=== PATIENT | male | born 1950 | race Caucasian/White ===

== ENCOUNTER 2020-04-08 21:33 | Emergency (ER) | payer MEDICARE, BC, SELFPAY ==
[2020-04-08 21:42] VITALS: BP 104/60; PULSE 64; RESP 18; TEMP 36.8; O2SAT 96; BMI 29.5
--- NOTE | 2020-04-08 22:06 | XR_ITS ---
PROCEDURE: XR ELBOW RT MIN 3V CLINICAL INDICATION: right elbow pain COMPARISON: No exams were available for comparison FINDINGS: No fracture or dislocation. No lytic or blastic change. There is normal mineralization. There are small bony ossicles adjacent to the lateral epicondyle of the humerus. There is a small bony ossicle adjacent to the coronoid process of the left non fossa. There is moderate spurring of the tip of the likely non. The radial head is intact. Soft tissues are grossly normal. IMPRESSION: Mild degenerative and/or posttraumatic changes of the elbow as indicated Dictated by: Dr. Efrain Thomas MD 04/09/2020 08:[address] Efrain Thomas MD in [place] 04/09/2020 08:54
[2020-04-08 22:17] LABS: Basophils % 0.5 % (0.1-2.0); Eosinophils # 0.3 K/mm3 (0.0-0.4); Eosinophils % 3.4 % (0.1-12.0); Hematocrit 38.6 % (42.0-52.0); Lymphocytes # 1.7 K/mm3 (0.7-4.5); Mean Corpuscular HGB Conc 33.6 g/dL (31.8-35.4); Mean Corpuscular Volume 92.1 fl (80-94); Mean Platelet Volume 8.6 fl (7.4-10.4); Monocytes # 0.3 K/mm3 (0.1-1.0); Monocytes % 4.1 % (1.7-9.3); Neutrophils # 5.2 K/mm3 (1.8-7.8); Platelet Count 218 K/mm3 (142-424); Red Blood Count 4.19 M/mm3 (4.60-6.20); White Blood Count 7.5 K/mm3 (4.8-10.8)
--- NOTE | 2020-04-08 22:25 | CT_ITS ---
PROCEDURE: CT ELBOW RT W CON CLINICAL HISTORY: elbow pain COMPARISON: XR ELBOW RT MIN 3V from 04/08/2020 TECHNIQUE: Axial images obtained with sagittal and coronal reformats. All CT scans at the facility use one or more dose reduction, viz: automated exposure control, ma/kV adjustment per patient size (including targeted exams where dose is matched to indication, i.e. head), or iterative reconstruction technique. FINDINGS: There is mild degenerative narrowing of the radial capitellum and trochlear olecranon joint spaces. There is a prominent spur at the insertion of triceps tendon. There is some scattered punctate calcifications surrounding the joint capsule and in the area of the olecranon bursa. There are no soft tissue inflammatory changes. Small joint effusion is noted. There is no fracture or dislocation. IMPRESSION: Degenerative changes as above, small joint effusion Dictated by: Hiro Powell 04/09/2020 09:41 Electronically signed by Hiro Powell in [place] 04/09/2020 09:41
[2020-04-08 22:38] LABS: Alanine Aminotransferase 30 U/L (12-78); Albumin Level 4.6 g/dl (3.5-5.0); Albumin/Globulin Ratio 1.8 (1.1-1.8); Alkaline Phosphatase 87 U/L (38-126); Anion Gap 13.2 mEq/L (5-15); Aspartate Amino Transferase 55 U/L (17-59); Bilirubin,Total 0.4 mg/dl (0.2-1.3); Blood Urea Nitrogen 23 mg/dl (9-20); Calcium 9.4 mg/dl (8.4-10.2); Carbon Dioxide 26 mmol/L (22.0-30.0); Chloride 104 mmol/L (98-107); Creatinine Clearance Estimated 72 mL/min (50-200); Estimated Glomerular Filt Rate 55 ml/min (>60); GFR (African American) 66 ML/MIN (>60); Globulin 2.6 g/dL (1.3-3.2); Glucose 147 mg/dl (74-100); Potassium 4.2 mmoL/L (3.5-5.1); Sodium 139 mmol/L (136-145); Total Protein,Serum 7.2 g/dl (6.3-8.2); Uric Acid 6.5 mg/dl (3.5-8.5)
[2020-04-08 22:44] LABS: C-Reactive Protein 1.8 mg/L (0-4)
[2020-04-08 22:45] LABS: Lactic Acid 1.1 mmol/L (0.7-2.1)
--- NOTE | 2020-04-08 23:19 | HMH.EDGENADL ---
ED Disposition Clinical Impression: Tenosynovitis of elbow Disposition: Home, Self-Care Condition on Discharge: Good Instructions: DI for Elbow Pain Additional Instructions: use meds and call ortho in am Prescriptions: predniSONE [Prednisone 20mg Tab] 20 mg PO BID #10 tab Transmission Status: Sent to [facility] Referrals: Jonathan Zhang MD [Primary Care Provider] - - Critical Care Critical Care Time: No Attestation: On 04/08/20, the high probability of a clinically significant, sudden or life threatening deterioration of the following system(s) required my full and direct attention, intervention and personal management. The time I documented below is in addition to time spent performing reported procedures but includes the following listed in this critical care notation. Medical Decision Making - Medical Records Medical records reviewed: Yes: I reviewed the patient's medical records. - Og Inquiry Pt receiving controlled substance: No Vital Signs: 04/08/20 21:42 Temperature 98.2 F Temperature Source Oral Pulse Rate [Right Brachial] 64 Respiratory Rate 18 Blood Pressure [Right Arm] 104/60 L Blood Pressure Mean [Right Arm] 74 Blood Pressure Source [Right Arm] Automatic Cuff Blood Pressure Position [Right Arm] Sitting 02 Sat by Pulse Oximetry 96 Oxygen Delivery Method Room Air - Lab Data Lab results reviewed: Yes: I reviewed the patient's lab results. Lab Results 04/08/20 22:05: WBC 7.5, RBC 4.19 L, Hgb 13.0 L, Hct 38.6 L, MCV 92.1, MCH 31.0, MCHC 33.6, RDW 14.0, Plt Count 218, MPV 8.6, Neut % (Auto) 69.0, Lymph % (Auto) 23.0, [place] % (Auto) 4.1, Eos % (Auto) 3.4, Baso % (Auto) 0.5, Neut # (Auto) 5.2, Lymph # (Auto) 1.7, [place] # (Auto) 0.3, Eos # (Auto) 0.3, Baso # (Auto) 0.0, ESR 14 04/08/20 22:05: Sodium 139, Potassium 4.2, Chloride 104, Carbon Dioxide 26, Anion Gap 13.2, BUN 23 H, Creatinine 1.30 H, Estimated Creat Clear 72, Estimated GFR 55 L, Est GFR ( Amer) 66, Glucose 147 H, Uric Acid 6.5, Calcium 9.4, Total Bilirubin 0.4, AST 55, ALT 30, Alkaline Phosphatase 87, C-Reactive Protein 1.8, Total Protein 7.2, Albumin 4.6, Globulin 2.6, Albumin/Globulin Ratio 1.8 04/08/20 22:05: Lactate 1.1 Result diagrams: 04/08/20 22:05 04/08/20 22:05 Orders (Tests/Meds): ED MEDICATIONS Generic Name Dose Route Start Last Admin Trade Name Freq PRN Reason Stop Dose Admin Sodium Chloride 1,000 mls @ 999 mls/hr 04/08/20 22:15 04/08/20 22:15 Sod Chlor 0.9% 1000ml Bag IV 04/08/20 23:15 999 mls/hr .[id number] KRUNAL Administration Discontinued Medications Generic Name Dose Route Start Last Admin Trade Name Freq PRN Reason Stop Dose Admin Hydromorphone HCl 1 mg 04/08/20 23:39 04/08/20 23:44 Dilaudid 2mg/Ml Syringe IV 04/08/20 23:40 1 mg ONCE ONE Administration Ioversol 75 ml 04/08/20 23:24 04/08/20 23:24 Rad-Optiray 350 100ml Vial IV 04/08/20 23:25 75 ml ONCE ONE Administration Protocol Ketorolac Tromethamine 30 mg 04/08/20 22:08 04/08/20 22:15 Toradol 30mg/Ml Vial IV 04/08/20 22:09 30 mg ONCE ONE Administration Methylprednisolone Sodium Succinate 125 mg 04/08/20 22:08 04/08/20 22:15 Solu-Medrol 125mg/2ml Vial IV 04/08/20 22:09 125 mg ONCE ONE Administration Ondansetron HCl 4 mg 04/08/20 22:08 04/08/20 22:15 Zofran 4mg/2ml Vial IV 04/08/20 22:09 4 mg ONCE ONE Administration Sodium Chloride 10 ml 04/08/20 23:24 04/08/20 23:24 Rad-Saline Flush 10ml Syringe IV 04/08/20 23:25 10 ml ONCE ONE Administration ORDERS Category Date Time Status CT elbow RT w con Stat Cat Scan 04/08/20 22:25 Taken XR elbow RT min 3V Stat Exams 04/08/20 22:06 Taken Blood Culture Stat Micro 04/08/20 22:27 Received - Radiology Data #1 Image(s): Elbow Image Reviewed: Yes I reviewed the patient's radiology image Preliminary Findings: Abnormal, No Fracture Seen - CT Data CT Scan: Other Time Received: 00:13 E
[2020-04-08 23:28] LABS: Erythrocyte Sedimentation Rate 14 mm/hr (0-20)
--- NOTE | 2020-04-08 23:56 | PC.NURSE ---
call placed to [facility] for disk
[2020-04-09 00:31] VITALS: BP 151/75; PULSE 73; RESP 13; TEMP 36.8; O2SAT 98
== END 2020-04-09 00:32 | disposition home or self-care (01) ==
PROVIDERS: Emergency Provider Emergency Medicine; PCP Family Medicine
DX: M65.821 Other synovitis and tenosynovitis, right upper arm (principal); I10 Essential (primary) hypertension; E78.5 Hyperlipidemia, unspecified
CPT/HCPCS: 36415; 73080; 73201; 80053; 83605; 84550; 85025; 85651; 86140; 87040; 96365; 96375; 99283; J2405; Q9967

== ENCOUNTER → 2020-10-08 16:14 | Outpatient (CLI) | payer MEDICARE, BC, SELFPAY | PROVIDERS: PCP Family Medicine; Visit Provider Nurse Practitioner Family | DX: Z20.828 Contact with and (suspected) exposure to other viral communicable diseases (principal); U07.1 COVID-19 | CPT/HCPCS: U0003; U0004 ==

== ENCOUNTER 2020-10-10 09:04 | Emergency (ER) | payer MEDICARE, BC, SELFPAY ==
[2020-10-10 09:21] VITALS: BP 126/91; PULSE 68; RESP 16; TEMP 37.5; O2SAT 96; BMI 29.5
--- NOTE | 2020-10-10 09:24 | XR_ITS ---
PROCEDURE: XR CHEST PORTABLE CLINICAL HISTORY: chest tightness, possible COVID-19 COMPARISON: CR CXR CHEST(2 VIEWS-NOT PORTABLE) from 12/05/2013 CR CXR1 CHEST-PORTABLE from 04/22/2014 CR CXR CHEST(2 VIEWS-NOT PORTABLE) from 01/02/2015 FINDINGS: The cardiomediastinal silhouette and pulmonary vascularity are within normal limits. The lungs are clear without infiltrates, suspicious nodules, or pleural effusions. No acute bony abnormalities. IMPRESSION: No acute findings. Dictated by: Serafin Gross MD 10/10/2020 10:13 Serafin Gross MD in [place] 10/10/2020 10:13
--- NOTE | 2020-10-10 09:27 | HMH.EDGENADL ---
ED Disposition Clinical Impression: Suspected COVID-19 virus infection Disposition: Home, Self-Care Condition on Discharge: Good Instructions: DI for COVID-19 (Suspected or Confirmed ), COVID-19 Antibody Test, COVID-19 Viral Test, COVID-19: Testing and Tracing Additional Instructions: Continue [id number] medications for cough, sore throat and fever if needed. Prednisone as prescribed. Your COVID-19 nasal swab result is still pending, but it is suspected that you have COVID-19 infection. You will be contacted with your nasal swab result which should be back later today. If positive you will be contacted regarding scheduling for antibody infusion if you choose to have that treatment. Return to the emergency department if shortness of breath, severe weakness, or persistent vomiting so that you are unable to tolerate oral liquids. Prescriptions: predniSONE [Prednisone 20mg Tab] 20 mg PO BID #6 tab Transmission Status: Received by [facility] Referrals: Jonathan Zhang MD [Primary Care Provider] - - Critical Care Critical Care Time: No Attestation: On 10/10/20, the high probability of a clinically significant, sudden or life threatening deterioration of the following system(s) required my full and direct attention, intervention and personal management. The time I documented below is in addition to time spent performing reported procedures but includes the following listed in this critical care notation. Medical Decision Making - Og Inquiry Pt receiving controlled substance: No Vital Signs: 10/10/20 09:21 10/10/20 09:36 10/10/20 10:06 Temperature 99.5 F Temperature Source Oral Pulse Rate Pulse Rate [Right Brachial] 68 70 65 Respiratory Rate 16 16 Blood Pressure Blood Pressure [Right Arm] 126/91 H 135/89 134/77 Blood Pressure Mean [Right Arm] 102 104 96 Blood Pressure Source [Right Arm] Automatic Cuff Blood Pressure Position [Right Arm] Sitting 02 Sat by Pulse Oximetry 96 94 L 94 L Oxygen Delivery Method Room Air Room Air 10/10/20 10:30 10/10/20 11:33 10/10/20 11:59 Temperature 98.6 F 98.8 F Temperature Source Oral Oral Pulse Rate 85 Pulse Rate [Right Brachial] 59 L 59 L Respiratory Rate 15 18 Blood Pressure 137/85 Blood Pressure [Right Arm] 141/90 H 153/93 H Blood Pressure Mean [Right Arm] 107 113 Blood Pressure Source [Right Arm] Automatic Cuff Blood Pressure Position [Right Arm] Sitting 02 Sat by Pulse Oximetry 93 L 95 Oxygen Delivery Method Room Air Room Air Room Air - Lab Data Lab Results 10/10/20 09:35: WBC 4.2 L, RBC 4.73, Hgb 14.2, Hct 44.5, MCV 94.1 H, MCH 30.1, MCHC 32.0, RDW 14.3, Plt Count 172, MPV 8.9, Neut % (Auto) 67.5, Lymph % (Auto) 23.2, [place] % (Auto) 6.5, Eos % (Auto) 1.8, Baso % (Auto) 1.0, Neut # (Auto) 2.9, Lymph # (Auto) 1.0, [place] # (Auto) 0.3, Eos # (Auto) 0.1, Baso # (Auto) 0.0 10/10/20 09:35: Sodium 136, Potassium 4.9, Chloride 99, Carbon Dioxide 32 H, Anion Gap 9.9, BUN 17, Creatinine 1.20, Estimated Creat Clear 78, Estimated GFR 60, Est GFR ( Amer) 72, Glucose 104 H, Calcium 9.7, Total Bilirubin 0.4, AST 67 H, ALT 39, Alkaline Phosphatase 106, Total Protein 7.6, Albumin 4.5, Globulin 3.1, Albumin/Globulin Ratio 1.5 10/10/20 09:35: Lactate 0.8 10/10/20 09:35: SARS-CoV-2 IgG Ab (Rapid) Negative, SARS-CoV-2 IgM Ab (Rapid) Negative Result diagrams: 10/10/20 09:35 10/10/20 09:35 Orders (Tests/Meds): ED MEDICATIONS Discontinued Medications Generic Name Dose Route Start Last Admin Trade Name Freq PRN Reason Stop Dose Admin Methylprednisolone Sodium Succinate 125 mg 10/10/20 09:41 10/10/20 09:41 Methylprednisolone Sod Succ 125mg Vial IV 10/10/20 09:42 125 mg ONCE ONE Administration ORDERS Category Date Time Status Blood Culture Stat Micro 10/10/20 09:35 Received - Radiology Data #1 Image(s): Chest Image Reviewed: Yes I reviewed the patient's radiology image, Yes I
[2020-10-10 09:36] VITALS: BP 135/89; PULSE 70; RESP 16; O2SAT 94
[2020-10-10 09:53] LABS: Eosinophils # 0.1 K/mm3 (0.0-0.4); Eosinophils % 1.8 % (0.1-12.0); Hematocrit 44.5 % (42.0-52.0); Hemoglobin 14.2 g/dL (14.1-18.0); Lymphocytes % 23.2 % (10-50); Mean Corpuscular Hemoglobin 30.1 pg (27.0-31.2); Mean Corpuscular Volume 94.1 fl (80-94); Mean Platelet Volume 8.9 fl (7.4-10.4); Monocytes # 0.3 K/mm3 (0.1-1.0); Monocytes % 6.5 % (1.7-9.3); Neutrophils # 2.9 K/mm3 (1.8-7.8); Neutrophils % 67.5 % (37.0-80.0); Platelet Count 172 K/mm3 (142-424); Red Blood Count 4.73 M/mm3 (4.60-6.20); Red Cell Distribution Width 14.3 % (11.5-17.5); White Blood Count 4.2 K/mm3 (4.8-10.8)
[2020-10-10 10:02] LABS: Chloride 99 mmol/L (98-107); Sodium 136 mmol/L (136-145)
[2020-10-10 10:03] LABS: Potassium 4.9 mmoL/L (3.5-5.1)
[2020-10-10 10:05] LABS: Alanine Aminotransferase 39 U/L (12-78); Albumin Level 4.5 g/dl (3.5-5.0); Albumin/Globulin Ratio 1.5 (1.1-1.8); Alkaline Phosphatase 106 U/L (38-126); Anion Gap 9.9 mEq/L (5-15); Aspartate Amino Transferase 67 U/L (17-59); Bilirubin,Total 0.4 mg/dl (0.2-1.3); Blood Urea Nitrogen 17 mg/dl (9-20); Carbon Dioxide 32 mmol/L (22.0-30.0); Creatinine Clearance Estimated 78 mL/min (50-200); Estimated Glomerular Filt Rate 60 ml/min (>60); GFR (African American) 72 ML/MIN (>60); Globulin 3.1 g/dL (1.3-3.2); Total Protein,Serum 7.6 g/dl (6.3-8.2)
[2020-10-10 10:06] VITALS: BP 134/77; PULSE 65; O2SAT 94
[2020-10-10 10:06] LABS: Calcium 9.7 mg/dl (8.4-10.2); Glucose 104 mg/dl (74-100); Lactic Acid 0.8 mmol/L (0.7-2.1)
[2020-10-10 10:29] LABS: Coronavirus 19 IgG Antibody Negative (Negative); Coronavirus 19 IgM Antibody Negative (Negative)
[2020-10-10 10:30] VITALS: BP 141/90; PULSE 59; RESP 15; TEMP 37; O2SAT 93
[2020-10-10 11:33] VITALS: BP 153/93; PULSE 59; O2SAT 95
[2020-10-10 11:59] VITALS: BP 137/85; PULSE 85; RESP 18; TEMP 37.1; O2SAT 98
--- NOTE | 2020-10-12 11:21 | PC.NURSE ---
pt notified of positive covid swab result
== END 2020-10-10 12:00 | disposition home or self-care (01) ==
PROVIDERS: Emergency Provider Emergency Medicine; PCP Family Medicine
DX: Z20.828 Contact with and (suspected) exposure to other viral communicable diseases (principal); R07.89 Other chest pain; I10 Essential (primary) hypertension; E78.5 Hyperlipidemia, unspecified; Z01.84 Encounter for antibody response examination
CPT/HCPCS: 71045; 80053; 83605; 85025; 86328; 87040; 96374; 99284

== ENCOUNTER 2020-10-15 08:00 | Outpatient (CLI) | payer MEDICARE, BC, SELFPAY ==
[2020-10-15] VITALS (10 sets, daily range): BP systolic 103–125; BP diastolic 70–88; PULSE 57–68; RESP 17–21; TEMP 36.6–36.7; O2SAT 92–94
--- NOTE | 2020-10-15 09:45 | PC.NURSE ---
Infusion complete. Patient show no signs or symptoms of distress or reaction at this time.
== END 2020-10-15 10:44 | disposition home or self-care (01) ==
PROVIDERS: PCP Family Medicine; Visit Provider Family Medicine
DX: U07.1 COVID-19 (principal)
CPT/HCPCS: 96365

== ENCOUNTER → 2021-10-22 09:57 | Outpatient (CLI) | payer MEDICARE, BC, SELFPAY ==
--- NOTE | 2021-10-22 | CA_ITS ---
APPROVED REPORT EXAM: Comprehensive 2D, Doppler, and color-flow Echocardiogram Coding Manager: ZAKI Billings, RVS Ht: 5 ft 11 in Wt: 223lbs BSA: 2.21 BP: 130/80 mmHg Indications: HTN, SOA, Edema, Hx-COVID 09/2020 2D Dimensions LVDs 3.31 cm LA Volume 49.50 mL Aortic Root 3.18 cm LA Volume Index 22.40 mL/m2 (M/F) 16-34 Left Atrium 2.67 cm LVOT 2.24 cm (M/F) 1.5-2.5 M-Mode Dimensions RVDd 3.56 cm (0.9-2.6) LA Diam 4.27 cm (1.9-4.0) LVDd 4.28 cm (3.5-5.7) Ao Diam 3.18 cm (2.0-3.7) LVDs 2.84 cm (3.5-5.7) IVSd 1.40 cm (0.6-1.1) PWd 1.19 cm (0.6-1.1) EF (Teich) 62.80% EPSs 0.30 cm FS 33.60% EDV (Teich) 82.20 mL TAPSE 2.10 (<1.7) ESV (Teich) 30.60 mL LV Diastology E Decel Time 330.00 (160-240 msec) E/A Ratio 0.96 MED E' 5.10 (< 7 cm/sec) MED A' 6.50 cm/s E'/MED E' Ratio 14.22 (>14) LAT E' 6.10 (<10 cm/sec) LAT A' 10.90 cm/s E/LAT E' Ratio 11.89 (>14) Pulm Vein s 20.00 cm/sec Pulm Vein d 19.00 cm/sec Ar-A Duration 130.00 msec Aortic Valve LVOT Max 63.00 (70-110 cm/s) LVOT VTI 15.45 cm AoV Peak [place]. 101.00 (50-130 cm/s) AO Peak GR. 4.10 mmHg AO Mean GR. 2.10 (<5 mmHg) AO VTI 21.20 (18-25 cm) MAGUE (VTI) 2.87 (2.5-4.5 cm2) Mitral Valve MV A Velocity 76.00 (40-130 cm/s) E/A Ratio 0.96 MV Decel. Time 330.00 (160-240 ms) MV Mean Gr. 1.20 (<2mmHg) Pulmonary Valve PV Peak Velocity 104.00 (50-150 cm/s) VA End VMAX 68.00 cm/s Tricuspid Valve TR P. Velocity 211.00 cm/s RAP Estimate 10.00 mmHg RVSP 27.90 mmHg Left Ventricle Left atrium is mildly enlarged, left ventricle is normal size, mild concentric left ventricular hypertrophy, visually estimated ejection fraction 55% with no regional wall motion abnormality, grade 1 diastolic dysfunction seen without tissue Doppler evidence of raise left atrial pressure. Right Ventricle Right atrium and right ventricle are mildly enlarged with normal contractility. Aortic Valve Aortic valve is minimally thickened and fibrosed, there is no aortic stenosis or aortic insufficiency. Mitral Valve Mitral valve is grossly normal, there is trace mitral regurgitation. Tricuspid Valve Tricuspid valve grossly normal, there is trace tricuspid regurgitation, tricuspid regurgitation jet velocity is inadequate for calculation of the right ventricular systolic pressure. Pulmonic Valve Pulmonic valve is poorly visualized. Great Vessels Aortic root is normal size. Inferior vena cava normal size with normal inspiratory collapse. Pericardium No significant pericardial effusion noted. Conclusion 1. Mild biatrial enlargement, normal left ventricular size, mild concentric left ventricular hypertrophy, visually estimated ejection fraction 55% with no regional wall motion abnormality, grade 1 diastolic dysfunction seen without tissue Doppler evidence of raise left atrial pressure. 2. Mildly enlarged right ventricle with normal contractility. 3. Trace mitral and tricuspid regurgitation. 4. No significant pericardial effusion noted. 5. Inferior vena cava is normal size with normal inspiratory collapse. Electronically signed by : Oli Gallardo MD 10/22/2021 12:19:35
== END ==
PROVIDERS: PCP Family Medicine; Visit Provider Family Medicine
DX: R06.02 Shortness of breath (principal); R60.0 Localized edema; I25.10 Atherosclerotic heart disease of native coronary artery without angina pectoris
CPT/HCPCS: 93306

== ENCOUNTER 2021-11-09 12:41 | Emergency (ER) | payer MEDICARE, BC, SELFPAY ==
[2021-11-09 14:17] VITALS: BP 142/93; PULSE 65; RESP 20; TEMP 36.6; O2SAT 96; BMI 31.5
--- NOTE | 2021-11-09 14:22 | XR_ITS ---
PROCEDURE INFORMATION: Exam: XR Chest Exam date and time: 11/09/2021 2:22 PM Age: 71 years old Clinical indication: Patient HX: Cough, congestion. TECHNIQUE: Imaging protocol: XR of the chest. Views: 2 views. COMPARISON: CR XR CHEST PORTABLE 10/10/2020 9:52 AM FINDINGS: Lungs: Atelectasis and/or early infiltrative changes noted within both lung bases. Pleural spaces: There is no evidence of pneumothorax. Heart/Mediastinum: Unremarkable. No cardiomegaly. Bones/joints: The thoracic spine demonstrates mild degenerative changes at multiple levels. IMPRESSION: Atelectasis and/or early infiltrative changes noted within both lung bases.
--- NOTE | 2021-11-09 14:56 | HMH.EDUTC ---
[facility] Disposition Clinical Impression: Lung infiltrate Disposition: Home, Self-Care Condition on Discharge: Good Instructions: Pneumonia-Adult, Azithromycin, Cefdinir Additional Instructions: ? Start azithromycin today. Be sure to complete entire prescription even if feeling better Start Cefdinir tomorrow 11/10/21 ? Monitor temp. Tylenol every 4 hours as needed and / or ibuprofen every 6 hours as needed ( As long as your primary care physician has told you that it ok to take both. For fever/aches/pains ER if no less than 101 despite Tylenol or Motrin ? Humidifier/vaporizer or hot steamy shower *Tessalon Perles will not cause drowsiness but use at bedtime to help stop cough so that you may get some rest. *Start steroid today. Helps with inflammation therefore, cough and wheezing. Follow directions on the package. Reviewed side effects. Patient reports taking them before. Follow up IMMEDIATELY for new or worsening of symptoms OR no noticeable improvement over the next 48-72 hours. 911 immediately for any life threatening symptoms such as chest pain or difficulty breathing Prescriptions: Cefdinir [Omnicef 300mg Capsule] 300 mg PO BID #20 cap Transmission Status: Received by [facility] predniSONE [Prednisone 20mg Tab] 20 mg PO BID 5 Days #10 tab Transmission Status: Received by [facility] Azithromycin [Z-Julio C 250mg Tab] 250 mg PO DIRECTED #6 tab Transmission Status: Received by [facility] Referrals: Jonathan Zhang MD [Primary Care Provider] - As needed Time of Disposition: 15:40 Medical Decision Making - Og Inquiry Pt receiving controlled substance: No Og was queried for this patient: No Vital Signs: 11/09/21 14:17 11/09/21 15:35 Temperature 97.9 F 97.9 F Temperature Source Oral Pulse Rate 65 Pulse Rate [Left Radial] 65 Respiratory Rate 20 20 Blood Pressure 142/93 H Blood Pressure [Right Arm] 142/93 H Blood Pressure Mean [Right Arm] 109 Blood Pressure Source [Right Arm] Automatic Cuff Blood Pressure Position [Right Arm] Sitting 02 Sat by Pulse Oximetry 96 Oxygen Delivery Method Room Air - Lab Data Lab Results 11/09/21 15:03: Group A Strep Rapid Negative Orders (Tests/Meds): ED MEDICATIONS Discontinued Medications Generic Name Dose Route Start Last Admin Trade Name Freq PRN Reason Stop Dose Admin Ceftriaxone Sodium 1 gm 11/09/21 15:18 11/09/21 15:35 Ceftriaxone 1gm Vial IM 11/09/21 15:19 1 gm ONCE ONE Administration Lidocaine HCl 0 ml 11/09/21 15:18 11/09/21 15:35 Lidocaine 1% 5ml Pf Vial IM 11/09/21 15:19 2 ml ONCE ONE Administration ORDERS Category Date Time Status Covid-19 Nasal PCR ([facility] [place]) Routine Lab 11/09/21 14:22 Ordered Strep Screen Confirmation Stat Micro 11/09/21 15:03 Received - Radiology Data #1 Image(s): Chest Image Reviewed: Yes I have reviewed radiologist's interpretation IMPRESSION: Atelectasis and/or early infiltrative changes noted within both lung bases. Medical Decision Narrative: Patient states that he has taken azithromycin and Predinisone in the past without complications or reactions [facility] HPI - General Stated complaint: possible cold Time Seen by Provider: 11/09/21 14:56 Mode of Arrival: Ambulatory Source of Information: Patient Limitations: No Limitations Description of Symptoms (Recalled from Triage Doc. by RN): c/o hoarness, cough, congestion and ear pain HEENT Symptoms (Recalled from RN notes): Yes Resp Symptoms (Recalled from RN notes): Yes (cough) Skin Symptoms (Recalled from RN notes): No MS Symptoms (Recalled from RN notes): No Functional Status (Recalled from RN notes): na - History of Present Illness Provider Complaint: Patient state that he has been having cough, chest and sinus congestion, body aches and this morning he he was very hoarse States that he is pron to get pneumonia and they wanted him tested for COVID and strep throat - Related D
[2021-11-09 15:31] LABS: Strep Scrn Group A (Rapid) Negative (Negative)
[2021-11-09 15:35] VITALS: BP 142/93; PULSE 65; RESP 20; TEMP 36.6
== END 2021-11-09 15:54 | disposition home or self-care (01) ==
PROVIDERS: Emergency Provider Nurse Practitioner; PCP Family Medicine
DX: R91.8 Other nonspecific abnormal finding of lung field (principal); Z20.822 Contact with and (suspected) exposure to COVID-19
CPT/HCPCS: G0463; 71046; 87430; 96372; 99203; C9803; J0696; U0003; U0005

== ENCOUNTER → 2022-01-03 08:05 | Outpatient (CLI) | payer MEDICARE, BC, SELFPAY | PROVIDERS: PCP Family Medicine; Visit Provider Surgery | DX: Z01.812 Encounter for preprocedural laboratory examination (principal); Z11.52 Encounter for screening for COVID-19; Z12.11 Encounter for screening for malignant neoplasm of colon | CPT/HCPCS: C9803; U0003; U0005 ==

== ENCOUNTER 2022-01-06 09:21 | Day surgery (SDC) | payer MEDICARE, BC, SELFPAY ==
[2022-01-02 14:08] VITALS: BMI 31.5
[2022-01-06] VITALS (7 sets, daily range): BP systolic 94–157; BP diastolic 60–86; PULSE 50–67; RESP 16–18; TEMP 36.2–36.4; O2SAT 95–97
--- NOTE | 2022-01-06 09:52 | P.PN_ITS ---
[facility] Anesthesia Checklist - Patient Identification Patient Identification: Arm Band - Structural Data Admitted From: Home Planned Operative Procedure/s: Colonoscopy Consent for Planned Operative Procedure(s) Verified: Yes - NPO Status Verified Time NPO: 00:00 - Airway Assessment C-Spine Mobility Assessed: Yes TMJ Mobility Assessed: Yes Dentition: Partials - Neurological Assessment Level of Consciousness: Awake Hx Seizures: No Numbness or tingling in extremities: No - Anesthesia Plan Anesthesia Risk discussed: Yes Anesthesia Plan: Verified ASA Class: II Anesthesia Type: MAC [facility] History I have reviewed the patient's past medical history: Yes Medical History: Reports:: Hypertension, Myocardial Infarction Denies:: Cancer, Diabetes Mellitus Type 1, Diabetes Mellitus Type 2, MRSA *Have you ever received a pneumonia vaccine?: Yes *Have you received a flu vaccine this season?: Yes Anesthesia experience/problems:: None Laterality Cases: Bilateral: Tonsillectomy Amputation: No - *Social History Smoking Status: Never smoker Alcohol Intake: never Substance Use Type: denies use *Occupational Status:: other *Travel in the last 8 weeks: None Family Hx:: Unable to obtain
--- NOTE | 2022-01-06 11:03 | P.PCN_ITS ---
- Procedure: Date: 01/06/22 Patient Date of :: 1950 Procedure Performed:: Colonoscopy with polypectomy by means other than snare Indications:: History of colon polyps Performing Provider:: Marcos Inman MD Referring Provider:: Dr. Zhang Sedation:: Monitored anesthesia care Procedure:: After informed consent was obtained the patient was taken to the endoscopy suite. Sedation ensued after the patient was transferred to the left lateral decubitus position. Pulse, blood pressure, and oxygen saturation were monitored throughout the procedure. Digital rectal exam revealed no significant abnormality. The colonoscope was placed in position. The entire colon was evaluated. The colonoscope was carefully removed and the patient was transfer red to recovery in stable condition. Please see findings and specimens below for detail. Findings:: Bowel preparation moderate Moderate spasticity and tortuosity Sigmoid diverticulosis Right colon polyp Specimens:: Right colon polyp (cold biopsy forceps) Recommendations:: Timing of repeat colonoscopy is pending pathology but will likely be between 21- 2 years with extended bowel preparation secondary to limitations in visualization. If repeat colonoscopy reveals no significant abnormality timing of future colonoscopies will likely be extended. Complications:: No immediate Estimated blood obtained (mL): 1
== END 2022-01-06 11:54 | disposition home or self-care (01) ==
LOC: OUTP 09:23
PROVIDERS: PCP Family Medicine; Visit Provider Surgery
PROC: 0DJD8ZZ Inspection of Lower Intestinal Tract, Via Natural or Artificial Opening Endoscopic (ICD-10-PCS; principal; 2022-01-06 10:30)
DX: Z12.11 Encounter for screening for malignant neoplasm of colon (principal); K63.5 Polyp of colon; K56.2 Volvulus; K58.9 Irritable bowel syndrome, unspecified; K57.30 Diverticulosis of large intestine without perforation or abscess without bleeding; Z86.010 Personal history of colon polyps; I10 Essential (primary) hypertension; I25.2 Old myocardial infarction; E66.9 Obesity, unspecified; Z68.31 Body mass index [BMI] 31.0-31.9, adult
CPT/HCPCS: 45380; 88305

== ENCOUNTER → 2022-07-20 08:11 | Outpatient (CLI) | payer MEDICARE, BC, SELFPAY ==
[2022-07-20 10:24] LABS: Chloride 101 mmol/L (98-107); Sodium 139 mmol/L (136-145)
[2022-07-20 10:25] LABS: Potassium 4.7 mmoL/L (3.5-5.1)
[2022-07-20 10:28] LABS: Anion Gap 15.7 mEq/L (5-15); Blood Urea Nitrogen 20 mg/dl (9-20); Calcium 9.1 mg/dl (8.4-10.2); Carbon Dioxide 27 mmol/L (22.0-30.0); Estimated Glomerular Filt Rate 66 ml/min (>60); GFR (African American) 80 ML/MIN (>60); Glucose 107 mg/dl (74-100)
== END ==
PROVIDERS: PCP Family Medicine; Visit Provider Ophthalmology
DX: H02.423 Myogenic ptosis of bilateral eyelids (principal)
CPT/HCPCS: 36415; 80048

== ENCOUNTER → 2022-11-13 06:55 | Outpatient (CLI) | payer MEDICARE, BC, SELFPAY ==
[2022-11-13 07:25] LABS: Basophils % 0.9 % (0.1-2.0); Eosinophils # 0.2 K/mm3 (0.0-0.4); Eosinophils % 4.8 % (0.1-12.0); Hematocrit 37.6 % (42.0-52.0); Hemoglobin 12.1 g/dL (14.1-18.0); Lymphocytes # 1.2 K/mm3 (0.7-4.5); Lymphocytes % 33.2 % (10-50); Mean Corpuscular HGB Conc 32.3 g/dL (31.8-35.4); Mean Corpuscular Hemoglobin 29.2 pg (27.0-31.2); Mean Corpuscular Volume 90.5 fl (80-94); Mean Platelet Volume 8.5 fl (7.4-10.4); Monocytes # 0.2 K/mm3 (0.1-1.0); Monocytes % 4.6 % (1.7-9.3); Neutrophils % 56.5 % (37.0-80.0); Platelet Count 221 K/mm3 (142-424); Red Blood Count 4.15 M/mm3 (4.60-6.20); Red Cell Distribution Width 14.6 % (11.5-17.5); Reticulocyte % (Auto) 0.6 % (0.9-3.2); White Blood Count 3.6 K/mm3 (4.8-10.8)
[2022-11-13 08:19] LABS: Iron 87 ug/dL (49-181)
[2022-11-13 08:53] LABS: Ferritin 92.6 ng/ml (17.9-464)
[2022-11-13 09:29] LABS: Vitamin B12 449 pg/mL (239-931)
[2022-11-13 09:33] LABS: Folate 8.31 ng/mL
== END ==
PROVIDERS: PCP Family Medicine; Visit Provider Family Medicine
DX: D64.9 Anemia, unspecified (principal)
CPT/HCPCS: 36415; 82607; 82728; 82746; 83540; 85025; 85044

== ENCOUNTER 2023-09-14 09:25 | Day surgery (SDC) | payer MEDICARE, BC, SELFPAY ==
[2023-09-08 14:27] VITALS: BMI 30.7
[2023-09-14 09:37] VITALS: BP 186/92; PULSE 69; RESP 18; TEMP 36.7; O2SAT 97
--- NOTE | 2023-09-14 09:38 | HMH.SCOPE ---
Procedure: Date: 09/14/23 Patient Date of :: 1950 Procedure Performed:: Colonoscopy with polypectomy by means other than snare Indications:: History of colon polyps Colonoscopy December 2021 was somewhat complicated by moderate preparation, significant spasticity, and fairly profound tortuosity. Sigmoid diverticulosis noted. An adenoma of the right colon was excised. Performing Provider:: Marcos Inman MD Referring Provider:: . Sedation:: Monitored anesthesia care Procedure:: After informed consent was obtained the patient was taken to the endoscopy suite. Sedation ensued after the patient was transferred to the left lateral decubitus position. Pulse, blood pressure, and oxygen saturation were monitored throughout the procedure. Digital rectal exam revealed no significant abnormality. The colonoscope was placed in position. The entire colon was evaluated. The colonoscope was carefully removed and the patient was transferred to recovery in stable condition. Please see findings and specimens below for detail. Findings:: Bowel preparation moderate to poor Fairly significant spasticity/lack of relaxation Unchanged sigmoid diverticulosis Adjacent right colon polyps Specimens:: Adjacent right colon polyps (cold biopsy forceps) Recommendations:: Timing of repeat colonoscopy is pending pathology but likely be between 2-3 years with extended bowel preparation. Complications:: No immediate Estimated blood obtained (mL): 1 Colonoscopy Component Colonoscopy Component Was a colonoscopy performed during today's procedure?: Yes Recommended follow up colonoscopy of at least 10 years?: No If no, follow up colonoscopy recommended in ___ years?: (See above) Reason for not recommending >/= 10 yr follow-up interval?: (See above)
--- NOTE | 2023-09-14 09:53 | EXP.ANES.CKL ---
[facility] Disclaimer: The information contained in this section may have been updated after the patient was seen, as this information can be updated by other users. Medical History Hyperlipidemia Hypertension Surgical History History of right heart catheterization (RHC) Family History Other Family history of myocardial infarction Social History Smoking Status: Never smoker alcohol intake: never substance use type: denies use current occupational status: retired Travel in the last 8 weeks: None caffeine: Yes [facility] Anesthesia Checklist Patient Identification Patient Identification: Arm Band Structural Data Admitted From: Home Planned Operative Procedure/s: colonoscopy Consent for Planned Operative Procedure(s) Verified: Yes Verified Documents: Surgical Consent and History and Physical NPO Status Verified Time NPO: 00:00 Additional verifications Anesthesia Reactions: No Airway Assessment Mallampati Score:: Class II C-Spine Mobility Assessed: Yes TMJ Mobility Assessed: Yes Neurological Assessment Level of Consciousness: Awake and Alert Anesthesia Plan Anesthesia Risk discussed: Yes Anesthesia Plan: Verified ASA Class: III Anesthesia Type: MAC
[2023-09-14 09:59] VITALS: O2SAT 94
[2023-09-14 10:25] VITALS: BP 86/40; PULSE 53; RESP 15; TEMP 36.2; O2SAT 92
[2023-09-14 10:35] VITALS: BP 95/48; PULSE 55; RESP 14; O2SAT 95
[2023-09-14 10:45] VITALS: BP 112/56; PULSE 60; RESP 17; O2SAT 94
[2023-09-14 10:55] VITALS: BP 109/54; PULSE 58; RESP 16; TEMP 36.6; O2SAT 94
== END 2023-09-14 11:00 | disposition home or self-care (01) ==
PROVIDERS: PCP Family Medicine; Visit Provider Surgery
PROC: 0DJD8ZZ Inspection of Lower Intestinal Tract, Via Natural or Artificial Opening Endoscopic (ICD-10-PCS; CPT 45380; principal; 2023-09-14 10:30)
DX: Z12.11 Encounter for screening for malignant neoplasm of colon (principal); Z86.010 Personal history of colon polyps; K57.30 Diverticulosis of large intestine without perforation or abscess without bleeding; D12.2 Benign neoplasm of ascending colon
CPT/HCPCS: 45380; 88305

== ENCOUNTER 2023-10-21 08:08 | Emergency (ER) | payer MEDICARE, BC, SELFPAY ==
[2023-10-21 08:08] VITALS: BP 124/81; PULSE 81; RESP 17; TEMP 36.5; O2SAT 96; BMI 31.2
[2023-10-21 08:15] VITALS: BP 124/81; PULSE 70; O2SAT 96
--- NOTE | 2023-10-21 08:15 | CT_ITS ---
FINAL REPORT CLINICAL HISTORY: abd pain rad to back, no BM, minimal flatus COMPARISON: None FINDINGS: CT OF THE ABDOMEN AND PELVIS WITH CONTRAST Axial CT images of the abdomen and pelvis were obtained after the administration of IV contrast. Coronal reformatted images were also obtained and reviewed. This study was performed with techniques to keep radiation doses as low as reasonably achievable (ALARA). Individualized dose reduction techniques using automated exposure control or adjustment of mA and/or kV according to the patient's size were employed. Abdomen: There is mild atelectasis in the lung bases.. The heart is normal in size. Moderate vascular calcifications are noted. The liver has an unremarkable appearance, without evidence of mass or biliary ductal dilatation. The spleen is unremarkable. No adrenal mass is present. The pancreas has an unremarkable appearance. The kidneys are normal, without evidence of mass or hydronephrosis. The aorta is normal in caliber. There is no free fluid or adenopathy. No mass or abnormal fluid collection is seen. Pelvis: The appendix normal. The urinary bladder is unremarkable. No inflammatory process is seen. There is no evidence of mass or adenopathy. There is a moderate to large amount of retained stool in the colon. Descending and sigmoid diverticulosis is noted. There is a small left inguinal hernia containing fat. IMPRESSION: Moderate to large amount of retained stool. Diverticulosis. Reviewed, Interpreted and Dictated by Pee Sage III, MD Transcribed by Verenice Lakhani Authenticated and . [facility]
--- NOTE | 2023-10-21 08:16 | HMH.EDGENADL ---
Discharge Plan Disposition Patient Disposition: Home, Self-Care Chief Complaint: Abdominal Pain Prescriptions Prescriptions: No Action atorvastatin 80 MG tablet 80 mg PO DAILY aspirin 81 MG tablet,delayed release (DR/EC) 81 mg PO DAILY lisinopril 10 tablet 10 mg PO DAILY Referrals Follow up/Referrals: Jonathan Zhang MD [Primary Care Provider] - See instructions Activity Restrictions/Add. Instructions Additional Instructions/Restrictions: At this time it was felt you are safe to be discharged home. If new or worsening symptoms please do not hesitate to return the emergency department. If symptoms persist please follow-up with your family doctor as you are able. Clinical Impressions Clinical Impression: Fecal impaction Instructions Patient Instructions: DI for Acute Abdominal Pain Discharge ED Provider: Nilo Graham General Adult HPI General Chief complaint: Abdominal Pain Stated complaint: Abdominal Pain, sweats Time Seen by Provider: 10/21/23 08:09 History of Present Illness HPI narrative: Patient is a 73-year-old male with past medical history of hyperlipidemia, recent COVID infection who presents emergency department for evaluation of abdominal pain. History is obtained by patient at bedside. Over the last 48 hours patient has been unable to have a bowel movement, minimal flatus, there is associated nonbloody vomiting. Due to intermittent generalized abdominal pain worse in the bilateral lower quadrants he presents here for continued evaluation. No dysuria. No chest pain. No abdominal surgical history. Related Data Home Medications Medication Instructions Recorded Confirmed aspirin 81 mg tablet,delayed 81 mg PO DAILY HEART HEALTH 01/21/19 10/21/23 release atorvastatin 80 mg tablet 80 mg PO DAILY Cholesterol 01/21/19 10/21/23 lisinopril 10 mg tablet 10 mg PO DAILY HTN 01/21/19 10/21/23 Allergies Allergy/AdvReac Type Severity Reaction Status Date / Time No Known Allergies Allergy Verified 09/29/23 09:04 [facility] Disclaimer: The information contained in this section may have been updated after the patient was seen, as this information can be updated by other users. Medical History Hyperlipidemia Hypertension Surgical History History of right heart catheterization (RHC) Family History Other Family history of myocardial infarction Social History Smoking Status: Never smoker alcohol intake: never substance use type: denies use current occupational status: retired Travel in the last 8 weeks: None caffeine: Yes ROS Obtained: Yes Systems reviewed as appropriate & no additional complaints except as documented Physical Exam General General appearance: alert and in no apparent distress Head Head exam: atraumatic and normocephalic Eye Eye exam: Present PERRL and EOMI ENT ENT exam: Present mucous membranes moist Neck Neck exam: Present normal inspection Chest Chest inspection: Present normal inspection and symmetric chest wall rise Respiratory Respiratory exam: Present normal lung sounds bilaterally; Absent respiratory distress Cardiovascular Cardiovascular exam: Present regular rate and normal rhythm Abdominal Exam Abdominal exam: Present distention and tenderness (Mild, diffuse) Extremities Exam Extremities exam: Present normal inspection Neurological Exam Neurological exam: Present alert Psychiatric Psychiatric exam: Present normal affect Skin Skin exam: Present warm and dry Medical Decision Making Og Inquiry Pt receiving controlled substance: No Vital Signs: 10/21/23 08:08 10/21/23 08:15 10/21/23 08:27 Temperature 97.7 F Temperature Source Oral Pulse Rate 70 74 Pulse Rate [Left Radial] 81 Respiratory Rate 17 Blood Pressure 124/81 106/62 L Blood Pressure [Right Arm] 124/81 Blood Pressure Mean 95 76 Blood Pressure Mean [Right Arm] 95 02 Sat by Pulse Oximetry 96 96 97 Oxygen Delivery Method Room Air Room Air Room Air 10/21/23 08:30 10/21/23 09:00 Temperature Temperature Source Pulse Rate 73 71 Pulse Rate [Left Radial] Respiratory Rate Blood Pressure 120/74 110/68 Blood Pressure [Right Arm] Blood Pressure Mean 89 82 Blood Pressure Mean [Right Arm] 02 Sat by Pulse Oximetry 97 96 Oxygen Delivery Method Room Air Room Air Lab Data Lab Results 10/21/23 08:12: Urine Color Yellow, Urine Appearance Clear, Urine pH 6.5, Ur Specific [place] 1.010, Urine Protein Negative, Urine Glucose (UA) Negative, Urine Ketones Negative, Urine Blood Negative, Urine Nitrate Negative, Urine Bilirubin Negative, Urine Urobilinogen 0.2, Ur Leukocyte Esterase Negative, Urine RBC None, Urine WBC None, Ur Squamous Epith Cells Occasional, Urine Bacteria Trace 10/21/23 08:24: WBC 4.2 L, RBC 4.28 L, Hgb 12.6 L, Hct 39.0 L, MCV 91.1, MCH 29.4, MCHC 32.3, RDW 14.9, Plt Count 248, MPV 8.5, Neut % (Auto) 61.1, Lymph % (Auto) 28.4, Charles % (Auto) 5.9, Eos % (Auto) 3.7, Baso % (Auto) 0.8, Neut # (Auto) 2.6, Lymph # (Auto) 1.2, Charles # (Auto) 0.3, Eos # (Auto) 0.2, Baso # (Auto) 0.0, Sodium 134 L, Potassium 4.5, Chloride 101, Carbon Dioxide 27, Anion Gap 10.5, BUN 23 H, Creatinine 1.30 H, Estimated Creat Clear 73, Estimated GFR 54 L, Est GFR ( Amer) 65, Glucose 113 H, Calcium 8.9, Total Bilirubin 0.4, AST 69 H, ALT 48, Alkaline Phosphatase 132 H, Total Protein 7.3, Albumin 4.6, Globulin 2.7, Albumin/Globulin Ratio 1.7, Lipase 399 H 10/21/23 08:29: SARS-CoV-2 (PCR) Not detected, Influenza A Untype (PCR) Not detected, Influenza Type B (PCR) Not detected 10/21/23 08:57: Lactate 1.1 10/21/23 08:24 10/21/23 08:24 Orders (Tests/Meds): ED MEDICATIONS Discontinued Medications Generic Name Dose Route Start Last Admin Trade Name Freq PRN Reason Stop Dose Admin Acetaminophen 1,000 mg 10/21/23 08:15 10/21/23 08:28 Acetaminophen 1,000mg/100ml Vial IV 10/21/23 08:16 1,000 mg ONCE ONE Administration Iopamidol 75 ml 10/21/23 09:12 10/21/23 09:13 Iopamidol-370 (76%);100ml Bottle IV 10/21/23 09:13 75 ml ONCE ONE Administration Ondansetron HCl 4 mg 10/21/23 08:15 10/21/23 08:28 Ondansetron 4mg/2ml Vial IV 10/21/23 08:16 4 mg ONCE ONE Administration Sodium Chloride 10 ml 10/21/23 09:12 10/21/23 09:12 Sodium Chloride 0.9% 10ml Syr (Rad Only) IV 10/21/23 09:13 10 ml ONCE ONE Administration ORDERS Category Date Time Status CT abdomen pelvis w con Stat Cat Scan 10/21/23 08:15 Completed CBC w/Auto Diff [Complete Blood Count Auto Diff] Stat Lab 10/21/23 08:24 Completed CMP [Comprehensive Metabolic Panel] Stat Lab 10/21/23 08:24 Completed Lactic Acid Stat Lab 10/21/23 08:57 Completed Lipase Stat Lab 10/21/23 08:24 Completed Rapid PCR Covid and Flu A/B Stat Lab 10/21/23 08:29 Completed UA [Urinalysis and Microscopic] Stat Lab 10/21/23 08:12 Completed Medical Decision Narrative: In summary patient is a 73-year-old male with past medical history described above presents emergency department for evaluation of abdominal pain and decreased stooling. Patient is hemodynamically stable nontoxic-appearing upon arrival, afebrile. Differential diagnosis includes bowel obstruction, constipation, stercoral colitis, pancreatitis, among others. Workup will be conducted with hematologic labs, viral swab, urinalysis, CT of the abdomen pelvis IV contrast. Initial interventions include IV Tylenol, IV Zofran. Workup reviewed by me, hematologic labs are remarkable for elevated lipase, however patient does not have significant epigastric pain. There is mildly elevated creatinine but does not meet VICKIE per rifle criteria. No critical electrolyte abnormalities. Urinalysis interpreted by me and not consistent with infection, viral swab negative. CT imaging shows moderate to large amount of retained stool and sigmoid diverticulosis. Upon my informal interpretation there is retained stool in the rectum. Given this patient undergo enema at bedside. Patient underwent enema at bedside and was unsuccessful. He subsequently went disimpaction with success and subsequent enema with success. Patient had significant resolution of symptoms and is appropriate for discharge at this time. Procedure: Procedure performed was rectal disimpaction. Procedure performed by Nilo Graham. Using viscous petroleum jelly rectum was digitally disimpacted with large hard stool expelled. Critical Care Critical Care Time Critical Care Time: No
--- NOTE | 2023-10-21 08:19 | PC.NURSE ---
Dr. Graham at BS for pt eval
[2023-10-21 08:20] LABS: Microscopic, Urine URINE MICROSCOPIC (MICROSCOPIC)
[2023-10-21 08:21] LABS: Appearance,Urine CLEAR (Clear); Bilirubin,Urine Negative (Negative); Blood, Urine Negative (Negative); Color,Urine YELLOW (Yellow); Glucose,Urine (UA) Negative (Negative); Ketones,Urine Negative (Negative); Leukocyte Esterase,Urine Negative (Negative); Nitrate,Urine Negative (Negative); PH,Urine 6.5 (5.0-8.5); Protein,Urine Negative (Negative); Urobilinogen,Urine 0.2 EU/dl (0.2)
[2023-10-21 08:27] VITALS: BP 106/62; PULSE 74; O2SAT 97
[2023-10-21] MEDS: ACETAMINOPHEN 1,000MG/100ML VIAL 1000 MG IV (08:28)
[2023-10-21] MEDS: ONDANSETRON 4MG/2ML VIAL 4 MG IV (08:28)
[2023-10-21 08:30] VITALS: BP 120/74; PULSE 73; O2SAT 97
[2023-10-21 08:32] LABS: Coronavirus 19, PCR Not Detected (NotDetected); Influenza A, PCR Not Detected (NotDetected); Influenza B, PCR Not Detected (NotDetected)
[2023-10-21 08:38] LABS: Bacteria,Urine Trace /lpf; Squamous Epithelial Cell,Urine Occasional #/hpf (0-5)
[2023-10-21 08:39] LABS: Basophils % 0.8 % (0.1-2.0); Eosinophils # 0.2 K/mm3 (0.0-0.4); Eosinophils % 3.7 % (0.1-12.0); Hemoglobin 12.6 g/dL (14.1-18.0); Lymphocytes # 1.2 K/mm3 (0.7-4.5); Lymphocytes % 28.4 % (10-50); Mean Corpuscular HGB Conc 32.3 g/dL (31.8-35.4); Mean Corpuscular Hemoglobin 29.4 pg (27.0-31.2); Mean Corpuscular Volume 91.1 fl (80-94); Mean Platelet Volume 8.5 fl (7.4-10.4); Monocytes # 0.3 K/mm3 (0.1-1.0); Monocytes % 5.9 % (1.7-9.3); Neutrophils # 2.6 K/mm3 (1.8-7.8); Neutrophils % 61.1 % (37.0-80.0); Platelet Count 248 K/mm3 (142-424); Red Blood Count 4.28 M/mm3 (4.60-6.20); Red Cell Distribution Width 14.9 % (11.5-17.5); White Blood Count 4.2 K/mm3 (4.8-10.8)
[2023-10-21 08:50] LABS: Alanine Aminotransferase 48 U/L (12-78); Albumin Level 4.6 g/dl (3.5-5.0); Albumin/Globulin Ratio 1.7 (1.1-1.8); Alkaline Phosphatase 132 U/L (38-126); Anion Gap 10.5 mEq/L (5-15); Aspartate Amino Transferase 69 U/L (17-59); Bilirubin,Total 0.4 mg/dl (0.2-1.3); Blood Urea Nitrogen 23 mg/dl (9-20); Calcium 8.9 mg/dl (8.4-10.2); Carbon Dioxide 27 mmol/L (22.0-30.0); Chloride 101 mmol/L (98-107); Creatinine Clearance Estimated 73 mL/min (50-200); Estimated Glomerular Filt Rate 54 ml/min (>60); GFR (African American) 65 ML/MIN (>60); Globulin 2.7 g/dL (1.3-3.2); Glucose 113 mg/dl (74-100); Lipase 399 U/L (23-300); Potassium 4.5 mmoL/L (3.5-5.1); Sodium 134 mmol/L (136-145); Total Protein,Serum 7.3 g/dl (6.3-8.2)
--- NOTE | 2023-10-21 08:57 | PC.NURSE ---
Pt gone to CT via wheelchair
[2023-10-21 09:00] VITALS: BP 110/68; PULSE 71; O2SAT 96
[2023-10-21] MEDS: SODIUM CHLORIDE 0.9% 10ML SYR (RAD ONLY) 10 ML IV (09:12)
[2023-10-21] MEDS: IOPAMIDOL-370 (76%);100ML BOTTLE 75 ML IV (09:13)
[2023-10-21 09:15] LABS: Lactic Acid 1.1 mmol/L (0.7-2.1)
--- NOTE | 2023-10-21 09:15 | PC.NURSE ---
Pt returned from RAD
[2023-10-21 11:55] VITALS: BP 115/81; PULSE 63; RESP 18; TEMP 36.6; O2SAT 95
--- NOTE | 2023-10-21 11:55 | PC.NURSE ---
Patient reports bowel movement after enema.
== END 2023-10-21 11:57 | disposition home or self-care (01) ==
PROVIDERS: Emergency Provider Emergency Medicine; PCP Family Medicine
DX: K56.41 Fecal impaction (principal); R11.10 Vomiting, unspecified; R10.31 Right lower quadrant pain; R10.32 Left lower quadrant pain; I10 Essential (primary) hypertension; E78.5 Hyperlipidemia, unspecified
CPT/HCPCS: 74177; 80053; 81001; 83605; 83690; 85025; 87636; 96374; 96375; 99285; J0131; J2405; Q9967

== ENCOUNTER 2024-06-22 04:38 | Emergency (ER) | payer MEDICARE, BC, SELFPAY ==
--- NOTE | 2024-06-22 04:44 | ED_ITS ---
Discharge Plan Disposition Patient Disposition: Home, Self-Care Prescriptions Prescriptions: No Action atorvastatin 80 MG tablet 80 mg PO DAILY aspirin 81 MG tablet,delayed release (DR/EC) 81 mg PO DAILY lisinopril 10 tablet 10 mg PO DAILY Referrals Follow up/Referrals: Jonathan Zhang MD [Primary Care Provider] - See instructions Activity Restrictions/Add. Instructions Additional Instructions/Restrictions: Please follow-up with your primary care provider. Please return to the emergency department if you develop any new or worsening symptoms or become concerned for your health. Clinical Impressions Clinical Impression: COVID-19, Nasal congestion Print Language Print Language: Swedish Discharge ED Provider: Jerald Tracey General Adult HPI General Chief complaint: Upper Respiratory Infection Stated complaint: trouble breathing Time Seen by Provider: 06/22/24 04:44 History of Present Illness HPI narrative: 74-year-old male with history of hypertension hyperlipidemia presents with URI symptoms. He reports that he has had some throat soreness and nasal congestion that been worsening over the last couple of days. Tonight he became so congested in his nose that he was having trouble breathing. He also reports that he feels like his phlegm is traveling down into his chest. He denies any fever at home. Related Data Home Medications ?Medication ?Instructions ?Recorded ?Confirmed aspirin 81 mg tablet,delayed 81 mg PO DAILY HEART HEALTH 01/21/19 10/21/23 release atorvastatin 80 mg tablet 80 mg PO DAILY Cholesterol 01/21/19 10/21/23 lisinopril 10 mg tablet 10 mg PO DAILY HTN 01/21/19 10/21/23 Allergies Allergy/AdvReac Type Severity Reaction Status Date / Time No Known Allergies Allergy Verified 09/29/23 09:04 [facility] Disclaimer: The information contained in this section may have been updated after the patient was seen, as this information can be updated by other users. Medical History Hyperlipidemia Hypertension Surgical History History of right heart catheterization (RHC) Family History Other Family history of myocardial infarction Social History Smoking Status: Unknown if ever smoked alcohol intake: never substance use type: denies use current occupational status: retired Travel in the last 8 weeks: None caffeine: Yes ROS Obtained: Yes All systems reviewed & no additional complaints except as documented Physical Exam General General appearance: alert and in no apparent distress Head Head exam: atraumatic and normocephalic Eye Eye exam: Present normal appearance, PERRL and EOMI ENT ENT exam: Present normal oropharynx, normal external ear exam and other (Nasal congestion noted) Neck Neck exam: Present normal inspection and full ROM Chest Chest inspection: Present normal inspection and symmetric chest wall rise; Absent tenderness Respiratory Respiratory exam: Present normal lung sounds bilaterally; Absent respiratory distress Cardiovascular Cardiovascular exam: Present regular rate and normal rhythm Abdominal Exam Abdominal exam: Present soft; Absent distention, tenderness or guarding Extremities Exam Extremities exam: Present normal inspection; Absent edema or joint swelling Back Exam Back exam: Present normal inspection; Absent tenderness Neurological Exam Neurological exam: Present alert and oriented X3; Absent motor sensory deficit Psychiatric Psychiatric exam: Present normal affect and normal mood Skin Skin exam: Present warm, dry and normal color Lymphatic Lymphatic Findings: no adenopathy Medical Decision Making Medical Records Medical records reviewed: Yes I reviewed the patient's medical records. Og Inquiry Pt receiving controlled substance: No Og was queried for this patient: No Vital Signs: 06/22/24 04:45 06/22/24 06:03 Temperature 97.5 F L 98 F Temperature Source Oral Oral Pulse Rate 57 L Pulse Rate [Right Brachial] 60 Respiratory Rate 22 16 Blood Pressure 113/77 Blood Pressure [Right Arm] 142/84 H Blood Pressure Mean [Right Arm] 103 Blood Pressure Source Automatic Cuff Blood Pressure Source [Right Arm] Automatic Cuff Blood Pressure Position Sitting Blood Pressure Position [Right Arm] Sitting 02 Sat by Pulse Oximetry 96 Oxygen Delivery Method Room Air Room Air Lab Data Lab results reviewed: Yes I reviewed the patient's lab results. Lab Results 06/22/24 05:00: SARS-CoV-2 (PCR) Detected A, Influenza A Untype (PCR) Not detected, Influenza Type B (PCR) Not detected Orders (Tests/Meds): ED MEDICATIONS Discontinued Medications Generic Name Dose Route Start Last Admin Trade Name Freq PRN Reason Stop Dose Admin Oxymetazoline HCl 1 ml 06/22/24 04:51 06/22/24 04:59 Oxymetazoline Nasal [place] 0.05% 15ml NS 06/22/24 04:52 1 ml ONCE ONE Administration ORDERS Category Date Time Status CXR 2 view (NOT portable) [XR chest 2V] Stat Exams 06/22/24 04:51 Completed Rapid PCR Covid and Flu A/B Stat Lab 06/22/24 05:00 Completed Medical Decision Narrative: 74-year-old male with history of hypertension, coronary artery disease presents for nasal congestion and shortness of breath. History was obtained via interactive discussion with patient, family, chart. On arrival, patient is [afebrile, hemodynamically stable, satting appropriately, alert, oriented x4, GCS 15], moving all extremities spontaneously. Full physical exam performed and significant for nasal congestion Differential includes but is not limited to COVID, flu, URI, pneumonia. Patient was given Afrin for symptomatic management and correction of underlying abnormalities. Workup initiated including 2 view chest x-ray, COVID flu swab. On re-evaluation, patient [remains afebrile, HD stable.] Laboratory workup independently interpreted by me and significant for positive COVID swab. Imaging independently interpreted by me and significant for no evidence of pneumonia or opacity. See radiology read for full review of final results. Given patient history, exam and workup, patient's presentation most likely represents acute COVID infection. Given patient is not hypoxic, has no respiratory distress, has clear lungs on x-ray, no indication for hospitalization. Interact discussion with outpatient regarding his presentation. He was given strict return precautions for worsening symptoms. He was given instructions regarding use of Afrin. Procedures Risk/Benefits of Procedure(s) Were Explained: Yes Critical Care Critical Care Time Critical Care Time: No
[2024-06-22 04:45] VITALS: BP 142/84; PULSE 60; RESP 22; TEMP 36.4; O2SAT 96; BMI 29.2
--- NOTE | 2024-06-22 04:51 | XR_ITS ---
PROCEDURE INFORMATION: Exam: XR Chest Exam date and time: 06/22/2024 5:02 AM Age: 74 years old Clinical indication: Cough and shortness of breath; Additional info: SOA, congestion TECHNIQUE: Imaging protocol: Radiologic exam of the chest. Views: 2 views. COMPARISON: CR XR CHEST 2V 11/09/2021 2:19 PM FINDINGS: Lungs: Unremarkable. No consolidation. Pleural spaces: Unremarkable. No pleural effusion. No pneumothorax. Heart/Mediastinum: Unremarkable. No cardiomegaly. Bones/joints: Unremarkable. IMPRESSION: No acute findings.
[2024-06-22] MEDS: OXYMETAZOLINE NASAL SPRAY 0.05% 15ML NS (04:59)
[2024-06-22 05:08] LABS: Influenza A, PCR Not Detected (NotDetected); Influenza B, PCR Not Detected (NotDetected)
[2024-06-22 05:36] LABS: Coronavirus 19, PCR Detected (NotDetected)
[2024-06-22 06:03] VITALS: BP 113/77; PULSE 57; RESP 16; TEMP 36.6; O2SAT 97
== END 2024-06-22 06:06 | disposition home or self-care (01) ==
PROVIDERS: Emergency Provider Emergency Medicine; PCP Family Medicine
DX: U07.1 COVID-19 (principal); R09.81 Nasal congestion; J02.9 Acute pharyngitis, unspecified; I10 Essential (primary) hypertension; E78.5 Hyperlipidemia, unspecified; I25.10 Atherosclerotic heart disease of native coronary artery without angina pectoris; R06.02 Shortness of breath
CPT/HCPCS: 71046; 87636; 99283

== ENCOUNTER 2025-02-23 09:39 | Outpatient (CLI) | payer MEDICARE, BC, SELFPAY ==
[2025-02-23 10:11] LABS: Basophils % 0.9 % (0.1-2.0); Eosinophils # 0.1 Kmm3 (0.0-0.4); Hematocrit 34.2 % (42.0-52.0); Hemoglobin 11.4 g/dL (14.1-18.0); Immature Granulocytes # 0.01 10^3uL; Immature Granulocytes % 0.3 %; Lymphocytes # 1.1 K/mm3 (0.7-4.5); Lymphocytes % 33.3 % (10-50); Mean Corpuscular HGB Conc 33.3 g/dL (31.8-35.4); Mean Corpuscular Hemoglobin 29.9 pg (27.0-31.2); Mean Corpuscular Volume 89.8 fl (80-94); Mean Platelet Volume 10.5 fl (7.4-10.4); Monocytes # 0.2 K/mm3 (0.1-1.0); Monocytes % 6.4 % (1.7-9.3); Neutrophils # 1.9 K/mm3 (1.8-7.8); Neutrophils % 56.1 % (37.0-80.0); Nucleated Red Blood Cells # 0 10^3/uL; Nucleated Red Blood Cells % 0 %; Platelet Count 209 K/mm3 (142-424); Red Blood Count 3.81 M/mm3 (4.60-6.20); Red Cell Distribution Width 14.4 % (11.5-17.5); Red Cell Distribution Width-SD 47.1 fL; White Blood Count 3.3 K/mm3 (4.8-10.8)
[2025-02-23 10:34] LABS: Chloride 101 mmol/L (98-107)
[2025-02-23 10:35] LABS: Albumin Level 4.8 g/dl (3.5-5.0); Potassium 4.4 mmoL/L (3.5-5.1); Sodium 134 mmol/L (136-145)
[2025-02-23 10:37] LABS: Blood Urea Nitrogen 22 mg/dl (9-20); Estimated Glomerular Filt Rate 54 ml/min (>60); GFR (African American) 65 ML/MIN (>60)
[2025-02-23 10:38] LABS: Alanine Aminotransferase 32 U/L (12-78); Albumin/Globulin Ratio 2.3 (1.1-1.8); Alkaline Phosphatase 70 U/L (38-126); Anion Gap 8.4 mEq/L (5-15); Aspartate Amino Transferase 83 U/L (17-59); Bilirubin,Total 0.6 mg/dl (0.2-1.3); Calcium 9.7 mg/dl (8.4-10.2); Carbon Dioxide 29 mmol/L (22.0-30.0); Globulin 2.1 g/dL (1.3-3.2); Glucose 99 mg/dl (74-100); Total Protein,Serum 6.9 g/dl (6.3-8.2)
[2025-02-23 11:14] LABS: Ferritin 111 ng/ml (17.9-464)
[2025-02-23 11:45] LABS: Folate 8.47 ng/mL
[2025-02-24 10:11] LABS: Haptoglobin 43 mg/dL (34-355)
[2025-02-25 09:46] LABS: Peripheral Smear Review Scanned Result
[2025-02-26 15:12] LABS: Albumin 4.3 g/dL (2.9-4.4); Alpha-1-Globulin 0.2 g/dL (0.0-0.4); Alpha-2-Globulin 0.6 g/dL (0.4-1.0)
[2025-02-26 16:43] LABS: Free Kappa Lt Chains 23.3 mg/L (3.3-19.4); Free Lambda Lt Chains 9.3 mg/L (5.7-26.3)
[2025-02-27 15:10] LABS: Immunoglobulin A, Qn 87 mg/dL (61-437); Immunoglobulin G, Qn 991 mg/dL (603-1613); Immunoglobulin M, Qn 40 mg/dL (15-143)
== END 2025-02-23 23:59 | disposition home or self-care (01) ==
LOC: LAB 09:42
PROVIDERS: PCP Family Medicine; Visit Provider Internal Medicine Medical Oncology
DX: D50.9 Iron deficiency anemia, unspecified
CPT/HCPCS: 36415; 80053; 82728; 82746; 82784; 83010; 83883; 84155; 84165; 85025; 86334; 86880

== ENCOUNTER 2025-03-06 06:28 | Day surgery (SDC) | payer MEDICARE, BC, SELFPAY ==
[2025-03-02 13:25] VITALS: BMI 32.5
[2025-03-06 06:44] VITALS: BP 131/56; PULSE 60; RESP 18; TEMP 36.4; O2SAT 95
--- NOTE | 2025-03-06 06:57 | EXP.GEN.HP ---
HPI HPI HPI: This is a 75-year-old gentleman seen in consultation from Dr. Jurado for esophagogastroduodenoscopy as part of evaluation for anemia. He has a fairly long-standing history of anemia. His most recent hemoglobin was 11.4. No melena. No bright red blood per rectum. No hematemesis. Note: The patient is aware that he is due for colonoscopy between August 2025 and August 2026. [facility] Disclaimer: The information contained in this section may have been updated after the patient was seen, as this information can be updated by other users. Medical History (Updated 03/06/25 @ 06:59 by Marcos Inman MD) Hyperlipidemia Hypertension Surgical History Hx of heart artery stent History of right heart catheterization (RHC) Family History Other Family history of myocardial infarction Social History (Updated 03/06/25 @ 06:55 by Tiana Slaughter RN) Smoking Status: Former smoker alcohol intake: never substance use type: denies use current occupational status: retired Travel in the last 8 weeks?: None caffeine: Yes Have you lived/traveled outside [place] in past 30 days?: No Contact w/someone who lives/traveled outside US past 30 days?: No Exposure to someone with infectious disease in past 14 days?: No Do you have a fever (greater than 100.4 F or 38 C)?: No Have you tested positive for COVID-19?: No Exposed to someone with COVID-19 in past 14 days?: No Do you have a sore throat?: No Do you have a cough?: No Do you have any weakness?: No Are you experiencing any nausea/vomitting?: No Do you have any diarrhea?: No Are you experiencing any unusual bleeding?: No Do you have any muscle aches/pain?: No Do you have any abdominal pain?: No Are you experiencing loss of taste or smell?: No Other Medical History Have you received the Flu Vaccine for this season: Yes Have you received the Pneumonia Vaccine: Yes Review of Systems Constitutional Constitutional: Reports system reviewed and no additional complaints, except as documented and Reports as per HPI Meds Home Medications and Allergies Home Medications ?Medication ?Instructions ?Recorded ?Confirmed ?Type aspirin 81 mg tablet,delayed 81 mg PO DAILY HEART HEALTH 01/21/19 03/06/25 History release atorvastatin 80 mg tablet 80 mg PO DAILY Cholesterol 01/21/19 03/06/25 History lisinopril 10 mg tablet 10 mg PO DAILY HTN 01/21/19 03/06/25 History ferrous sulfate 325 mg (65 mg 325 mg PO DAILY #90 tabs 02/23/25 03/06/25 Rx iron) tablet torsemide 20 mg tablet 20 mg PO DAILY 02/23/25 03/06/25 History New Prescriptions to Start Prescriptions: Allergies Allergy/AdvReac Type Severity Reaction Status Date / Time No Known Allergies Allergy Verified 03/06/25 06:42 Exam Data for Last 24 hours Vital signs and Labs for Last 24 Hours: Temp Pulse Resp BP Pulse Ox O2 Del Method 97.6 F 60 18 131/56 L 95 Room Air 03/06/25 06:44 03/06/25 06:44 03/06/25 06:44 03/06/25 06:44 03/06/25 06:44 03/06/25 06:44 I & O for Last 24 hours: Intake & Output 03/03/25 03/04/25 03/05/25 03/06/25 11:59 11:59 11:59 11:59 Weight 220 lb Constitutional Constitutional: no acute distress *Routine HEENT Exam Head: Present normocephalic Eye: Present EOMI ENT: Present mucous membranes moist *Routine Neck Exam Neck: Present full ROM *Routine Respiratory Exam Respiratory: Absent respiratory distress *Routine Cardiovascular Exam Cardiovascular: Absent tachycardia *Routine Abdominal Exam Abdominal: Present soft *Routine Rectal Exam Rectal:: deferred *Routine Genitalia Exam Genitalia:: deferred *Routine Extremities Exam Extremities: Present full ROM *Routine Skin Exam Skin: Absent erythema *Routine Neurological Exam Neurological: Present alert Assessment and Plan *Assessment and plan (1) Iron deficiency anemia: Status: Acute Qualifiers: Iron deficiency anemia type: unspecified iron deficiency Qualified Code(s): D50.9 - Iron deficiency anemia, unspecified Category: Medical Code(s): D50.9 - Iron deficiency anemia, unspecified Plan: Esophagogastroduodenoscopy today I have discussed the risks and benefits including, but not limited to: Bleeding Infection Damage to surrounding tissue Inherent risks of sedation The patient agrees to proceed.
[2025-03-06] MEDS: LACTATED RINGERS 1000ML 1,000 ML 50 ML IV (06:58)
--- NOTE | 2025-03-06 06:59 | P.PCN_ITS ---
Procedure: Date: 03/06/25 Patient Date of :: 1950 Procedure Performed:: Esophagogastroduodenoscopy with biopsy Indications:: Anemia Performing Provider:: Marcos Inman MD Referring Provider:: Dr. Jurado Sedation:: Monitored anesthesia care Procedure:: After informed consent was obtained the patient was taken to the endoscopy suite. Sedation ensued after the patient was transferred to the left lateral d ecubitus position. Pulse, blood pressure, and oxygen saturation were monitored throughout the procedure. The endoscope was advanced beyond the duodenal bulb. Retroflexion within the gastric lumen was accomplished. The gastroscope was carefully removed and the patient was transferred to recovery in stable condition. Please see findings and specimens below for detail. Findings:: Gastroesophageal junction at 40 cm Mild streaking gastritis No sign of active/recent hemorrhage No sign of ulceration Specimens:: Antral biopsy Recommendations:: Follow-up pathology Evaluation with regard to anemia will be ongoing. Consider UGI/SBFT followed by capsule endoscopy. Consider repeat colonoscopy in near future (patient currently due between August 2025 and August 2026) Complications:: No immediate Estimated blood obtained (mL): 1 Colonoscopy Component Colonoscopy Component Was a colonoscopy performed during today's procedure?: No
--- NOTE | 2025-03-06 07:01 | P.PNANES_ITS ---
[facility] Disclaimer: The information contained in this section may have been updated after the patient was seen, as this information can be updated by other users. Medical History (Updated 03/06/25 @ 06:59 by Marcos Inman MD) Hyperlipidemia Hypertension Surgical History Hx of heart artery stent History of right heart catheterization (RHC) Family History Other Family history of myocardial infarction Social History (Updated 03/06/25 @ 06:55 by Tiana Slaughter RN) Smoking Status: Former smoker alcohol intake: never substance use type: denies use current occupational status: retired Travel in the last 8 weeks?: None caffeine: Yes Have you lived/traveled outside US in past 30 days?: No Contact w/someone who lives/traveled outside US past 30 days?: No Exposure to someone with infectious disease in past 14 days?: No Do you have a fever (greater than 100.4 F or 38 C)?: No Have you tested positive for COVID-19?: No Exposed to someone with COVID-19 in past 14 days?: No Do you have a sore throat?: No Do you have a cough?: No Do you have any weakness?: No Are you experiencing any nausea/vomitting?: No Do you have any diarrhea?: No Are you experiencing any unusual bleeding?: No Do you have any muscle aches/pain?: No Do you have any abdominal pain?: No Are you experiencing loss of taste or smell?: No [facility] Anesthesia Checklist Patient Identification Patient Identification: Arm Band and Verbal (Name & ) Structural Data Admitted From: Home Planned Operative Procedure/s: EGD Consent for Planned Operative Procedure(s) Verified: Yes Verified Documents: Surgical Consent NPO Status Verified Time NPO: 00:00 Additional verifications Anesthesia Reactions: No Airway Assessment Mallampati Score:: Class II C-Spine Mobility Assessed: Yes TMJ Mobility Assessed: Yes Dentition: Partials (good dentition otherwise) Neurological Assessment Level of Consciousness: Awake, Alert and Appropriate Hx Seizures: No Numbness or tingling in extremities: No Anesthesia Plan Anesthesia Risk discussed: Yes Anesthesia Plan: Verified ASA Class: II Anesthesia Type: MAC
[2025-03-06 07:24] VITALS: BP 85/49; PULSE 51; RESP 14; TEMP 36.1; O2SAT 93
[2025-03-06 07:34] VITALS: BP 92/56; PULSE 50; RESP 16; O2SAT 95
[2025-03-06 07:44] VITALS: BP 98/51; PULSE 52; RESP 16; O2SAT 94
[2025-03-06 07:54] VITALS: BP 114/79; PULSE 58; RESP 18; O2SAT 95
== END 2025-03-06 08:10 | disposition home or self-care (01) ==
PROVIDERS: PCP Family Medicine; Visit Provider Surgery
PROC: 0DJ08ZZ Inspection of Upper Intestinal Tract, Via Natural or Artificial Opening Endoscopic (ICD-10-PCS; CPT 43239; principal; 2025-03-06 07:30)
DX: D50.9 Iron deficiency anemia, unspecified (principal); K29.70 Gastritis, unspecified, without bleeding; K31.9 Disease of stomach and duodenum, unspecified
CPT/HCPCS: 43239; J7120

== ENCOUNTER 2025-03-14 10:10 | Outpatient (CLI) | payer MEDICARE, BC, SELFPAY ==
[2025-03-14 10:57] LABS: Hematocrit 37.9 % (42.0-52.0); Hemoglobin 11.9 g/dL (14.1-18.0)
== END 2025-03-14 23:59 | disposition home or self-care (01) ==
LOC: LAB 10:11
PROVIDERS: PCP Family Medicine; Visit Provider Surgery
DX: D50.9 Iron deficiency anemia, unspecified (principal)
CPT/HCPCS: 36415; 85014; 85018

== ENCOUNTER 2025-03-16 07:45 | Outpatient (CLI) | payer MEDICARE, BC, SELFPAY ==
--- NOTE | 2025-03-16 08:00 | FL_ITS ---
FINAL REPORT CLINICAL HISTORY: anemia 97.58 mGy 1.35 min FINDINGS: UPPER GI WITH SMALL BOWEL FOLLOW-THROUGH HISTORY: Anemia. Fluoroscopy Time: 1 minute 35 seconds Radiation dose in reference to Air-Kerma: 97.58 mGy. PROCEDURE: The patient ingested barium. Effervescent crystals were also administered. Spot and overhead films were obtained. Additional barium was administered for a SBFT. FINDINGS: The esophagus is normal. There is no hiatal hernia. There is no gastroesophageal reflux. Peristalsis is normal. The rugal fold pattern of the stomach is normal. The duodenal bulb is normal. A 13 mm barium tablet passes through the esophagus and into the stomach without delay. IMPRESSION: Normal upper GI. SBFT: The operations support manager film is normal. There is no evidence of obstruction. The mucosal fold pattern is normal. The terminal ileum is normal. IMPRESSION: Normal small bowel follow-through. Reviewed, Interpreted and Dictated by Pool Gomez MD Transcribed by YARITZA Lares Authenticated and [facility]
[2025-03-16] MEDS: DIATRIZOATE MEG 66% & DIATRIZOATE NA 10% 30ML UDC 30 ML PO (09:34)
[2025-03-16] MEDS: E-Z-GASII EFFERVESCENT GRANULES;1PK 1 EACH PO (09:34)
[2025-03-16] MEDS: BARIUM SULFATE (E-Z-HD 340GM);135ML BOTTLE 135 ML PO (09:34)
[2025-03-16] MEDS: BARIUM SULFATE(LIQUID E-Z-PAQUE);355ML BOTTLE 355 ML PO (09:34)
== END 2025-03-16 23:59 | disposition home or self-care (01) ==
LOC: RAD 07:46
PROVIDERS: PCP Family Medicine; Visit Provider Surgery
DX: D50.9 Iron deficiency anemia, unspecified (principal)
CPT/HCPCS: 74246; 74248; Q9963

== ENCOUNTER 2025-03-22 11:41 | Emergency (ER) | payer MEDICARE, BC, SELFPAY ==
[2025-03-22 11:44] VITALS: BP 119/73; PULSE 65; RESP 18; TEMP 36.4; O2SAT 95; BMI 28.1
--- NOTE | 2025-03-22 12:08 | XR_ITS ---
FINAL REPORT CLINICAL HISTORY: rolled ankle, pain on lateral ankle/foot FINDINGS: AP and lateral views of the left tibia and fibula were obtained. There is no prior exam for comparison. There is no acute fracture of the left tibia or fibula. The knee and ankle appear intact. Vascular calcification is identified. IMPRESSION: No acute osseous abnormality of the left tibia or fibula. Reviewed, Interpreted and Dictated by Fina Newby MD Transcribed by Shawna Tamayo Authenticated and [facility]
--- NOTE | 2025-03-22 12:08 | XR_ITS ---
FINAL REPORT CLINICAL HISTORY: rolled ankle, pain on lateral ankle/foot FINDINGS: AP, oblique and lateral views of the left foot were obtained. There is no acute fracture or dislocation. There is mild multijoint degenerative disease. Very mild soft tissue edema seen along the dorsum of the forefoot. IMPRESSION: No acute osseous abnormality of the left foot. Reviewed, Interpreted and Dictated by Fina Newby MD Transcribed by Shawna Tamayo Authenticated and [facility]
--- NOTE | 2025-03-22 12:08 | XR_ITS ---
FINAL REPORT CLINICAL HISTORY: rolled ankle, pain on lateral ankle/foot FINDINGS: AP, oblique, and lateral views of the left ankle were obtained. There is no fracture or dislocation. The ankle mortise is intact. There is lateral soft tissue edema. IMPRESSION: No acute osseous abnormality of the left ankle. Reviewed, Interpreted and Dictated by Fina Newby MD Transcribed by Shawna Tamayo Authenticated and [facility]
--- NOTE | 2025-03-22 12:19 | PC.NURSE ---
pt getting xray at beside at this time
[2025-03-22 12:29] VITALS: BP 135/86; PULSE 64; RESP 14; O2SAT 95
[2025-03-22 12:31] VITALS: BP 136/83; PULSE 66; RESP 14; O2SAT 92
--- NOTE | 2025-03-22 12:31 | PC.NURSE ---
Pt twisted his left ankle yesterday walking on gravel. States he felt a pop. Used ice and elevation last night with no relief today. Pain is 6/10. Offered him an ice pack, he doesn't want it. XR complete. at bedside.
--- NOTE | 2025-03-22 12:33 | ED_ITS ---
Discharge Plan Disposition Patient Disposition: Home, Self-Care Condition: Good Prescriptions Prescriptions: No Action torsemide 20 mg tablet 20 mg PO DAILY Patient Comments: TAKE 1 TABLET BY MOUTH ONCE DAILY ferrous sulfate 325 mg (65 mg iron) tablet 325 mg PO DAILY Qty: 90 3RF atorvastatin 80 MG tablet 80 mg PO DAILY aspirin 81 MG tablet,delayed release (DR/EC) 81 mg PO DAILY lisinopril 10 tablet 10 mg PO DAILY Referrals Follow up/Referrals: Mehrdad Umana DO [Staff Physician, Orthopedics] - See instructions Delilah Sotelo DPM [Staff Physician, Podiatry] - See instructions Jonathan Zhang MD [Primary Care Provider, Medical] - See instructions Activity Restrictions/Add. Instructions Additional Instructions/Restrictions: You were evaluated in the emergency department today. Please take Tylenol and ibuprofen as needed for pain. We are providing you with a walking boot to wear for support. Please wear this until you follow-up with either podiatry or orthopedics. We have provided you with information for both. Please call one of them to schedule an appointment. Return to the emergency department for new or worsening symptoms Clinical Impressions Clinical Impression: Acute left ankle pain Instructions Patient Instructions: DI for Foot Fracture Print Language Print Language: Setswana Discharge ED Provider: Sunitha Hollins General Adult HPI General Chief complaint: Extremity Injury, Lower Stated complaint: twisted left ankle while walking Time Seen by Provider: 03/22/25 12:01 Mode of Arrival: Ambulatory Source of Information: Patient Description of Symptoms (Recalled from ER Triage Doc. by RN): PT stated he twisted left ankle yesterday walking on rocks. Walking makes pain worse. Favors right leg. PT states pain is more on the outer part of ankle. PT caught himself and denies LOC. N blood thinners. History of Present Illness HPI narrative: This patient is a 75-year-old male with history of hypertension, hyperlipidemia, and CAD status post stenting presenting to the emergency department for evaluation with concern for left foot pain. He states he was walking on rocks yesterday when he stepped on his foot in a weird way, rolling it. He did not fall to the ground. He did not hit his head or lose consciousness. He has had pain in his left foot, mostly on the lateral aspect of the foot, since then is worse with attempted weightbearing. No numbness, tingling, or other concerns noted. He was well prior to this. Related Data Home Medications ?Medication ?Instructions ?Recorded ?Confirmed aspirin 81 mg tablet,delayed 81 mg PO DAILY HEART HEAL TH 01/21/19 03/14/25 release atorvastatin 80 mg tablet 80 mg PO DAILY Cholesterol 0 01/21/19 03/14/25 lisinopril 10 mg tablet 10 mg PO DAILY HTN 01/21/19 03/14/25 torsemide 20 mg tablet 20 mg PO DAILY 02/23/2502/16 Previous Rx's ?Medication ?Instructions ?Recorded ferrous sulfate 325 mg (65 mg 325 mg PO DAILY #90 tabs 02/23/25 iron) tablet Allergies Allergy/AdvReac Type Severity Reaction Status Date / Time No Known Allergies Allergy Verified 03/14/25 09:24 [facility] Disclaimer: The information contained in this section may have been updated after the patient was seen, as this information can be updated by other users. Medical History Hyperlipidemia Hypertension Surgical History History of esophagogastroduodenoscopy (EGD) Hx of heart artery stent History of right heart catheterization (RHC) Family History Other Family history of myocardial infarction Social History Smoking Status: Never smoker alcohol intake: never substance use type: denies use current occupational status: retired Travel in the last 8 weeks?: None caffeine: Yes Other Medical History Have you received the Flu Vaccine for this season: Yes Have you received the Pneumonia Vaccine: Yes ROS Obtained: Yes All systems reviewed & no additional complaints except as documented Physical Exam General General appearance: alert and in no apparent distress Head Head exam: atraumatic and normocephalic Eye Eye exam: Present normal appearance, PERRL and EOMI ENT ENT exam: Present normal exam, normal oropharynx, mucous membranes moist and normal external ear exam Neck Neck exam: Present normal inspection, full ROM and trachea midline; Absent tenderness Chest Chest inspection: Present normal inspection and symmetric chest wall rise; Absent tenderness Respiratory Respiratory exam: Present normal lung sounds bilaterally; Absent respiratory distress, wheezes, stridor or accessory muscle use Cardiovascular Cardiovascular exam: Present regular rate and normal rhythm Abdominal Exam Abdominal exam: Present soft; Absent distention, tenderness or guarding Extremities Exam Extremities exam: Present full ROM, tenderness, normal capillary refill, joint swelling and other (Left ankle swelling, tenderness to palpation of the lateral left ankle joint as well as the left fifth metatarsal. All compartment soft, neurovascularly intact distally. No open wounds) Back Exam Back exam: Present normal inspection and full ROM; Absent tenderness Neurological Exam Neurological exam: Present alert, oriented X3, CN II-XII intact and normal gait; Absent motor sensory deficit Psychiatric Psychiatric exam: Present normal affect and normal mood Skin Skin exam: Present warm and dry Medical Decision Making Medical Records Medical records reviewed: Yes I reviewed the patient's medical records. Screening: Per USPSTF and CDC recommendations, given the prevalence of disease in our region, it is our hospital?s policy to screen for HIV and viral Hepatitis for all patients aged 18 and over and those with ongoing risk factors. Og Inquiry Pt receiving controlled substance: No Vital Signs: 03/22/25 11:44 03/22/25 12:29 03/22/25 12:31 Temperature 97.5 F L Temperature Source Oral Pulse Rate 64 66 Pulse Rate [Right] 65 Respiratory Rate 18 14 14 Blood Pressure 135/86 136/83 Blood Pressure [Right Arm] 119/73 Blood Pressure Mean [Right Arm] 88 Blood Pressure Source Blood Pressure Source [Right Arm] Automatic Cuff Blood Pressure Position 02 Sat by Pulse Oximetry 95 95 92 L Oxygen Delivery Method Room Air 03/22/25 13:00 03/22/25 13:30 03/22/25 13:40 Temperature 98.3 F Temperature Source Oral Pulse Rate 58 L 53 L 59 L Pulse Rate [Right] Respiratory Rate 17 13 18 Blood Pressure 117/79 116/73 116/73 Blood Pressure [Right Arm] Blood Pressure Mean [Right Arm] Blood Pressure Source Automatic Cuff Blood Pressure Source [Right Arm] Blood Pressure Position Sitting 02 Sat by Pulse Oximetry 94 L 90 L Oxygen Delivery Method Room Air Lab Data Lab results reviewed: Yes I reviewed the patient's lab results. Orders (Tests/Meds): ORDERS Category Date Time Status Ankle XR - Left minimum 3 Views [XR ankle LT min 3V] Exams 03/22/25 12:08 Completed Stat Foot XR left minimum 3 views [XR foot LT min 3V] Stat Exams 03/22/25 12:08 Completed Tibia/fibula XR left 2 views [XR tibia fibula LT 2V] Exams 03/22/25 12:08 Completed Stat Medical Decision Narrative: In summary, this patient is a 75-year-old male presenting to the Emergency Department for evaluation of left foot and ankle pain after rolling it yesterday while walking on a rock. No true fall, head injury, or loss of consciousness. Differential diagnoses considered include but are not limited to fracture, contusion, strain/sprain, neurovascular injury. Ruling out the most morbid conditions drove assessment. It should be noted patient's history includes hypertension, hyperlipidemia, CAD which may or may not be at goal therapy. This complicates all aspects of care by increasing patient's risk for morbidity. On exam, the patient is well-appearing. He has tenderness palpation of the lateral aspect of the left ankle and foot. He is neurovascularly intact distally. Workup included x-rays of the left tib-fib, ankle, and foot. I independently interpreted x-ray prior to the radiologist read and noted he has an osteophyte to the base of the fifth metatarsal but no obvious acute fracture, he has significant swelling. Please see their read for final interpretation. Given significant pain and swelling, I am concerned for either occult fracture versus significant sprain/strain. Given this, patient was offered a walking boot, but he states that he has 1 at home. I do feel he should follow-up with orthopedics given the degree of pain and swelling. he was given instructions for this. He was discharged with strict return precautions and instructions for supportive care. Critical Care Critical Care Time Critical Care Time: No
[2025-03-22 13:00] VITALS: BP 117/79; PULSE 58; RESP 17; O2SAT 94
[2025-03-22 13:30] VITALS: BP 116/73; PULSE 53; RESP 13; O2SAT 90
[2025-03-22 13:40] VITALS: BP 116/73; PULSE 59; RESP 18; TEMP 36.8; O2SAT 98
== END 2025-03-22 13:41 | disposition home or self-care (01) ==
PROVIDERS: Emergency Provider Emergency Medicine; PCP Family Medicine
DX: M25.572 Pain in left ankle and joints of left foot (principal); X50.1XXA Overexertion from prolonged static or awkward postures, initial encounter
CPT/HCPCS: 73590; 73610; 73630; 99284

== ENCOUNTER 2025-05-07 08:02 | Outpatient (CLI) | payer MEDICARE, BC, SELFPAY ==
--- OUTSIDE RECORDS SUMMARY | 2025-05-07 08:05 | XMS_ITS | Clinical Summary ---
Author Organization [facility] [employer] ([place], [place], [place], [place]) Address [address] [place] [address] Care Team Providers Care Brand Ambassador Promotional Model Name Role Phone Jonathan Zhang MD Primary Care Provider [phone] Allergies No known active allergies Medications aspirin 81 MG EC tablet Take 1 tablet (81 mg total) by mouth daily. Active torsemide (DEMADEX) 20 MG tablet Take 1 tablet (20 mg total) by mouth daily. 04/15/2024 Active atorvastatin (LIPITOR) 80 MG tablet Take 1 tablet (80 mg total) by mouth daily. 30 tablet 11 08/17/2024 Active lisinopriL (ZESTRIL) 10 MG tablet Take 1 tablet (10 mg total) by mouth daily. 30 tablet 11 08/17/2024 Active Active Problems Problem Noted Date Diagnosed Date Claudication 06/23/2023 Leg pain, bilateral 06/22/2023 Edema, unspecified type 06/22/2023 Coronary artery disease invo [place]ving [place] coronary artery of [place] heart, unspecified whether angina present 06/22/2023 Mixed hyperlipidemia 06/22/2023 Primary hypertension 06/22/2023 Health care maintenance 06/22/2023 JOHN (dyspnea on exertion) 06/22/2023 Family History Relation Name Status Comments Father (Age 68) Mother (Age 84) Social History Tobacco Use Types Packs/Day Years Used Date Smoking Tobacco: Former Cigarettes Tobacco Cessation:Counseling Given: Not Answered Alcohol Use Standard Drinks/Week Comments Not Currently 0 (1 standard drink = 0.6 oz pur e alcohol) Food Insecurity Answer Date Recorded Food run out past 12 months Not on file 10/18 Food did not last past 12 months Not on file 11/05/2023 Employment Answer Date Recorded Help finding and keeping a job Not on file 0 11/05/2023 Family and Community Support Answer Yefri e Recorded Help with Day to Day Activities Not on file 11/05/2023 Feeling Lonely or Isolated Not on file 11/05 Educational Attainment Answer Date Mitchel rded Speak language other than [place] Citizen at home Not on file 11/05/2023 Want help with school or training Not on file 11/05/2023 Substance Use Answer Date Recorded Used prescription meds for non-medical reasons N ot on file 11/05/2023 Used illegal drugs past 12 months Not on file 11/05/2023 Sex and Gender Information Value Date Recorded Sex Assigned at Not on file Legal Sex Male 4:46 PM CDT Gender Identity Not on file Sexual Orientation Not on file Last Filed Vital Signs Vital Sign Reading Time Taken Comments Blood Pressure 110/80 08/16/2024 9:58 AM EDT Pulse 58 08/16/2024 9:58 AM EDT Temperature - - Respiratory Rate - - Oxygen Saturation 94% 08/16/2024 9:58 AM EDT Inhaled Oxygen Concentration - - Weight 102.1 kg (225 lb) 08/16/2024 9:58 AM EDT Height 180.3 cm (5' 11 ) 08/16/2024 9:58 AM EDT Body Mass Index 31.38 08/16/2024 9:58 AM EDT Plan of Treatment Health Maintenance Due Date Last Done Comments CT Colonography 1950 Colonoscopy 1950 Colorectal Cancer Screening 1950 FOBT/FIT 1950 Fit-DNA (Cologuard) 1950 Sigmoidoscopy 1950 Depression Screening (12+) 1962 Hepatitis C Screening 01/28/1968 Shingles Vaccine (Zoster) (1 of 2) 01/28/2000 Medicare Initial AWV [id number] 01/18/2016 Pneumococcal 50+ years (2 of 2 - PCV) 07/18/2021 07/18/2020, 08/10/2016 COVID-19 VACCINE (2023-2 5 season) 2024 03/27/2022, 09/06/2021, 01/18/2021 Tobacco Cessation Counseling and Screening (12+) 08/06/2024 08/06/2023 Falls Risk Screening 10/18/2024 Respiratory Syncytial Virus (RSV) Adult or (1 - 1-dose 75+ series) 2025 Influenza Vaccine (#1) 2025 , 07/20/2022, 07/09/2021, Additional history exists DTAP/TDAP/TD VACCINES (2 - T d or Tdap) 01/21/2029 01/21/[address] [place] [id number] MEDICARE PART A B Care Teams Brand Ambassador Promotional Model Relationship Specialty Start Date End Date Jonathan Zhang MD PCP - General Family Medicine 06/22/23
--- OUTSIDE RECORDS SUMMARY | 2025-05-07 08:05 | XMS_ITS | Clinical Summary ---
Author Organization [facility] Address [address] [place] [address] Care Team Providers Care Timber Framer Name Role Phone Jonathan Zhang MD Primary Care Provider + Allergies No known active allergies Medications lisinopril (PRINIVIL,ZESTRI L) 10 MG tablet Take 1 tablet by mouth Daily. 01/17/2022 Active atorvastatin (LIPITOR) 80 MG tablet Take 1 tablet by mouth every night at bedtime. 01/17/2022 Active aspirin 81 MG EC tablet Take 1 tablet by mouth Daily. Active torsemide (DEMADEX) 20 MG tabletIndication s:Diastolic dysfunction Take 1 tablet by mouth Daily. 90 tablet 1 02/12/2025 Active Active Problems Problem Noted Date Diagnosed Date Overactive bladder 07/20/2023 Diastolic dysfunction 11/10/2022 Assessment & Plan (01/24/2024 11:28 AM EDT): Stable. Refilled torsemide 20 mg daily. Surveillance labs ordered Assessment & Plan (11/10/2022 9:03 AM EST): Stable. Continue torsemide every other day Class 1 obesity due to exces s calories with serious comorbidity and body mass index (BMI) of 32.0 to 32.9 in adult 03/09/2022 Assessment & Plan (11/10/2022 9:03 AM EST): Patient's (Body mass index is 32.36 kg/m .) indicates that they are obese (BMI >30) with health conditions that include coronary heart disease . Weight is unchanged. BMI is is above average; BMI management plan is completed. We discussed increasing exercise. Essential hypertension 03/09/2022 Assessment & Plan (01/24/2024 11:28 AM EDT): Hypertension is stable and controlled Continue current treatment regimen. Blood pressure will be reassessed in 6 months. Assessment & Plan (11/10/2022 9:02 AM EST): Hypertension is Stable. Continue current treatment regimen. Dietary sodium restriction. Weight loss. Continue current medications. Blood pressure will be reassessed at the next regular appointment. Assessment & Plan (03/09/2022 11:16 AM EDT): Hypertension is unchanged. Continue current treatment regimen. Blood pressure will be reassessed at the next regular appointment. Coronary artery disease invo lving [place] coronary artery of [place] heart without angina pectoris 03/09/2022 Assessment & Plan (01/24/2024 11:28 AM EDT): Coronary Artery Disease (OPTIONAL): Coronary artery disease is stable. Continue current treatment regimen. Follow-up with cardiology as scheduled. Cardiac status will be reassessed in 6 months. Assessment & Plan (11/10/2022 9:02 AM EST): Coronary artery disease is Stable, followed by cardiology. Continue current treatment regimen. Cardiac status will be reassessed in 6 months. Right sided sciatica 03/09/2022 Encounters Date Type Department Care Team Description 02/16/2025 Telephone [facility] [address] [place] [phone] Jonathan Zhang MD CALLBACK 02/15/2025 Results Follow-Up [facility] [address] [place] [phone] Jonathan Zhang MD 02/12/2025 8:45 AM EDT Office Visit [facility] [address] [place] [address] Jonathan Zhang MD Essential hypertension (Primary Dx); Diastolic dysfunction; Anemia, unspecified type 02/12/2025 Travel from Last 3 Months Immunizations Immunization Administration Dates Next Due Arexvy (RSV, Adults 60+ yrs) 08/11/2023 COVID-19 (SULY) 09/06/2021,01/18/2021 COVID-19 (MODERNA) Monovalent Original Booster 0 03/27/2022 FLUAD TRI 65YR+ 08/09/2020 Fluad Quad 65+ 07/20/2022,07/09/2021 Fluzone High-Dose 65+yrs 07/20/2023 Tdap 01/21/2019 Family History Medical History Relation Name Comments Heart attack Father Je Heart disease Father Je No Known Problems Mother Relation Name Status Comments Father Je Mother Social History Tobacco Use Types Packs/Day Years Used Date Smoking Tobacco: Former Cigarettes 0.5 15 Q uit: 2009 Smokeless Tobacco: Never Tobacco Cessation:Counseling Given: Not Answered Alcohol Use Standard Drinks/Week Comments Never 0 (1 standard drink = 0.6 oz pur e alcohol) PHQ-2 Answer Date Recorded Retired PHQ-9: Brief Depression Severity Measure Score 0 03/10/2023 PHQ-2 Answer Date Recorded Patient Health Questionnaire-2 Score 0 02/12/2025 Sex and Gender Information Value Date Recorded Sex Assigned at Male 02/05/2025 8:48 AM EDT Legal Sex Male 9:53 AM EDT Gender Identity Not on file Sexual Orientation Straight 02/05/2025 8: 48 AM EDT Last Filed Vital Signs Vital Sign Reading Time Taken Comments Blood Pressure 130/70 02/12/2025 8:22 AM EDT Pulse 54 02/12/2025 8:22 AM EDT Temperature 36.2 C (97.1 F) 02/12/2025 8:22 AM EDT Respiratory Rate 20 02/12/2025 8:22 AM EDT Oxygen Saturation 96% 02/12/2025 8:22 AM EDT Inhaled Oxygen Concentration - - Weight 97.6 kg (215 lb 3.2 oz) 02/12/2025 8:22 A M EDT Height 180.3 cm (5' 10.98 ) 02/12/2025 8:22 AM E DT Body Mass Index 30.03 02/12/2025 8:22 AM EDT Plan of Treatment Upcoming Encounters Date Type Department Care Team (Late st Contact Info) Description 08/20/2025 10:15 AM EST Office Visit [facility] [address] [place] [phone] Jonathan Zhang MD [address] [place] [address] Health Maintenance Due Date Last Done Comments COLOGUARD 1995 COLON CANCER SCREENING 5 YEA R SIGMOIDOSCOPY 1995 [address] COLONOGRAPHY 1995 FECAL OCCULT BLOOD TEST 1995 FIT Testing (1 year) 1995 ZOSTER VACCINE (1 of 2) 01/28/2000 Pneumococcal Vaccine 50+ (2 of 2 - PCV) 07/18/2021 07/18/2020 COVID-19 Vaccine (4 - 2023-2 5 season) 2024 03/27/2022, 09/06/2021, 01/18/2021 INFLUENZA VACCINE 07/18/2025 07/21/2024, , 07/21/2024, Additional history exists ANNUAL WELLNESS VISIT 08/14/2025 08/14/2024 , 08/14/2024, 07/20/2023 TDAP/TD VACCINES (2 - Td or Tdap) 01/21/2029 019 COLONOSCOPY 09/14/2033 09/14/2023, 01/06/2022 COLORECTAL CANCER SCREENING 09/14/2033 RSV Vaccine - Adults Completed 08/11/2023 AAA SCREEN ONCE Completed 10/21/2023, 08/10/2017 HEPATITIS C SCREENING Discontinued Procedures Procedure Name Priority Date/Time Associated Diagnosis Comments SCANNED - IMAGING 03/22/2025 SCANNED - IMAGING 03/22/2025 SCANNED - IMAGING 03/22/2025 SCANNED - IMAGING 03/22/2025 SCANNED - IMAGING 03/16/2025 ENDOSCOPY, INT 03/14/2025 SCANNED - LABS 03/14/2025 SCANNED PATHOLOGY 03/06/2025 SCANNED PATHOLOGY 02/23/2025 SCANNED - LABS 02/23/2025 SCANNED - LABS 02/23/2025 SCANNED - LABS 02/23/2025 SCANNED - LABS 02/23/2025 LACTATE DEHYDROGENASE Routine 02/12/2025 8:50 AM EDT Anemia, unspecified type RETICULOCYTES Routine 02/12/2025 8:50 AM EDT Anemia, unspecified type VITAMIN B12 Routine 02/12/2025 8:50 AM EDT Anemia, unspecified type BASIC METABOLIC PANEL Routine 02/12/2025 8:50 AM EDT Anemia, unspecified type CBC (NO DIFF) Routine 02/12/2025 8:50 AM EDT Anemia, unspecified type FERRITIN Routine 02/12/2025 8:50 AM EDT Anemia, unspecified type IRON PROFILE Routine 02/12/2025 8:50 AM EDT Anemia, unspecified type from Last 3 Months Results * IMAGING SCANNED (03/22/2025) Only the most recent of5 resultswithin the time period is included. Anatomical Region Laterality Modality Radiographic Mavis ging Jonathan Zhang MD IMG DIAGNOSTIC IMAGING O RDERABLES Final Result * Endoscopy, Int (03/14/2025) Jonathan Zhang MD INTERFACE NEEDS Final Re sult * LABS SCANNED (03/14/2025) Only the most recent of5 resultswithin the time period is included. Result Elba Zhang MD LAB BLOOD ORDERABLES Fin al Result * SCANNED PATHOLOGY (03/06/2025) Only the most recent of2 resultswithin the time period is included. us Jonathan Zhang MD PATHOLOGY/CYTOLOGY ORDER HANNA Final Result * (ABNORMAL) Iron Profile (02/12/2025 8:50 AM EDT) TIBC 384 mcg/dL [facility] UIBC 331 112 - 346 mcg/dL [facility] Iron 53(L) 59 - 158 mcg/dL [facility] Iron Saturation 14(L) 20 - 50 % [facility] Blood 02/12/2025 8:50 AM EDT 02/12/2025 Narrative [facility] ([facility]) - 02/13/2025 3:07 AM EDT Performed at: [address] [place] [address] [address] [place], [place] [id number] Welding Teacher: Ha Recio MD, Phone: [phone] Patient Fasting: N Jonathan Zhang MD LAB BLOOD ORDERABLES Fin al Result Performing Organization Address [facility] de Phone Number [facility] ([facility]) [address] [place] [address], [place] [phone] [facility] [address] [place] [address], * Reticulocytes (02/12/2025 8:50 AM EDT) Reticulocyte Absolute 1.11 0.70 - 1.90 % [facility] Blood 02/12/2025 8:50 AM EDT 02/12/2025 Narrative [facility] ([facility]) - 02/13/2025 3:07 AM EDT Performed at: [address] [place] [address] [address] [place], [place] [id number] Welding Teacher: Ha Recio MD, Phone: [phone] Patient Fasting: N Jonathan Zhang MD LAB BLOOD ORDERABLES Fin al Result Performing Organization Address City/[facility]/ZIP Co de Phone Number [facility] (AMBULATORY) [address] [place] [address], [place] [phone] [facility] [address] [place] [id number], * (ABNORMAL) CBC (No Diff) (02/12/2025 8:50 AM EDT) WBC 3.33(L) 3.40 - 10.80 10*3/mm3 [facility] RBC 4.03(L) 4.14 - 5.80 10*6/mm3 [facility] Hemoglobin 12.2(L) 13.0 - 17.7 g/dL [facility] Hematocrit 36.8(L) 37.5 - 51.0 % [facility] MCV 91.3 79.0 - 97.0 fL [facility] MCH 30.3 26.6 - 33.0 pg [facility] MCHC 33.2 31.5 - 35.7 g/dL [facility] RDW 14.4 12.3 - 15.4 % [facility] Platelets 193 140 - 450 10*3/mm3 [facility] Blood 02/12/2025 8:50 AM EDT 02/12/2025 Narrative [facility] (AMBUL[facility]) - 02/13/2025 3:07 AM EDT Performed at: [address] [place] [id number] Welding Teacher: Ha Recio MD, Phone: [phone] Patient Fasting: N us Jonathan Zhang MD LAB BLOOD ORDERABLES Fin al Result [facility] [employer] [facility] ([facility]BUL[facility]ORY) [address] [place] [address], [facility] [address] [place] [address], * (ABNORMAL) Lactate Dehydrogenase (02/12/2025 8:50 AM EDT) LDH 426(H) 135 - 225 U/L [facility] Blood 02/12/2025 8:50 AM EDT 02/12/2025 Narrative [facility] [facility] ([facility]) - 02/13/2025 3:07 AM EDT Performed at: [address] [facility] [address] [place], [place] [id number] Welding Teacher: Ha Recio MD, Phone: [phone] Patient Fasting: N Jonathan Zhang MD LAB BLOOD ORDERABLES Fin al Result Performing Organization Address [facility] Co de Phone Number [facility] (AMBUL[facility]ORY) [address] [place] [address], [facility] [address] [place] [address], [place] [phone] * Ferritin (02/12/2025 8:50 AM EDT) Ferritin 236.00 30.00 - 400.00 ng/mL [facility] Comment:Results may be false ly decreased if patient taking Biotin. Blood 02/12/2025 8:50 AM EDT 02/12/2025 Narrative [facility] ([facility]) - 02/13/2025 3:07 AM EDT Performed at: [facility] [address] [place], [place] [id number] Welding Teacher: Ha Recio MD, Phone: [phone] Patient Fasting: N Jonathan Zhang MD LAB BLOOD ORDERABLES Fin al Result Performing Organization Address [facility] Co de Phone Number [facility] ([facility]UL[facility]) [address] [place] [address], [facility] [address] [place] [address], * Vitamin B12 (02/12/2025 8:50 AM EDT) Vitamin B-12 559 211 - 946 pg/mL [facility] Comment:Results may be false ly increased if patient taking Biotin. Blood 02/12/2025 8:50 AM EDT 02/12/2025 Narrative [facility] ([facility]) - 02/13/2025 3:07 AM EDT Performed at: [facility] [address] [place], [place] [id number] Welding Teacher: Ha Recio MD, Phone: [phone] Patient Fasting: N us Jonathan Zhang MD LAB BLOOD ORDERABLES Fin al Result [facility] ([facility]BULAT[facility]) [address] [place] [address], [place] [phone] [facility] [address] [place] [address], [place] [phone] * (ABNORMAL) Basic Metabolic Panel (02/12/2025 8:50 AM EDT) [facility] Glucose 92 65 - 99 mg/dL [facility] BUN 23 8 - 23 mg/dL [facility] Creatinine 1.36(H) 0.76 - 1.27 mg/dL [facility] EGFR Result 54.3(L) >60.0 mL/min/1.7 3 [facility] Comment: GFR Categories in Chronic Kidney Disease (CKD)/X09/ /X09/ GFR Category GFR (mL/min/1.73) Interpretation G1/X09/ 90 or greater/X09/ Normal or high (1) G2/X0909/ 60-89 Mild decrease (1) G3a 45-59 Mild to moderate decrease G3b 30-44 Moderate to severe decrease G4 15-29 Severe decrease G5 14 or less Kidney failure/X0909/ /[id number]/ (1)In the absence of evidence of kidney disease, neither GFR category G1 or G2 fulfill the criteria for CKD. eGFR calculation 2020 CKD-EPI creatinine equation, which does not include race as a factor BUN/Creatinine Ratio 16.9 7.0 - 25.0 [facility] Sodium 137 136 - 145 mmol/L [facility] Potassium 4.3 3.5 - 5.2 mmol/L [facility] Chloride 97(L) 98 - 107 mmol/L [facility] Total CO2 26.0 22.0 - 29.0 mmol/L [facility] Calcium 9.5 8.6 - 10.5 mg/dL [facility] Blood 02/12/2025 8:50 AM EDT 02/12/2025 Narrative [facility] ([facility]) - 02/13/2025 3:07 AM EDT Performed at: [address] [facility] [address], [place], [place] [id number] Welding Teacher: Ha Recio MD, Phone: [phone] Patient Fasting: N Jonathan Zhang MD LAB BLOOD ORDERABLES Fin al Result [facility] (AMBULATORY) [address] [place] [address], [facility] [address] [place] [address], from Last 3 Months Insurance [id number] [place] [address] MEDICARE A & B [facility] Care Teams Timber Framer Relationship Specialty Start Date End Date Jonathan Zhang MD [address] [place] [address] [place] [address] PCP - General Family Medicine 03/09/22
--- OUTSIDE RECORDS SUMMARY | 2025-05-07 08:05 | XMS_ITS | Referral Summary ---
Author Organization [email or web address] ([place], [place], [place], [place]) Address [address] [place] [address] Care Team Providers Care Ambulatory Care Coordinator Name Role Phone Jonathan Zhang MD Primary Care Provider [phone] Allergies No known active allergies Medications aspirin [...] type 06/22/2023 Coronary artery disease invo lving [place] coronary artery of [place] heart, unspecified whether angina present 06/22/2023 Mixed hyperlipidemia 06/22/2023 Primary hypertension 06/22/2023 Health care maintenance 06/22/2023 JOHN (dyspnea on exertion) 06/22/2023 Social History Tobacco Use Types Packs/Day Years [...] Date Mitchel rded Speak language other than [place] at home Not on file 11/05/2023 Want [...] 08/16/2024 9:58 AM EDT Plan of Treatment Not on file Insurance MEDICARE PART A B [facility] Care Teams Ambulatory Care Coordinator Relationship Specialty Start Date End Date Jonathan Zhang MD PCP - General Family Medicine 06/22/23
--- OUTSIDE RECORDS SUMMARY | 2025-05-07 08:05 | XMS_ITS | Encounter Summary ---
Author Organization [facility] Address [address] [place] [address] Care Team Providers Care Customer Orders Clerk Name Role Phone Jonathan Zhang MD Primary Care Provider + Reason for Referral * Consultation (Routine) - Authorized Specialty Diagnoses / Procedures Referred By Contac t Referred To Contact Diagnoses Anemia, unspecified type Procedures [place] OFFICE/OUTPATIENT NEW MODERATE MDM 45 MINUTES Jonathan Zhang MD [address] [place] [address] Phone: tel: fax: Dwain Jurado MD [address] [place] [address] Phone: tel: fax: Referral ID Status Reason Start Date Expiration Date V isits Requested Visits Authorized [id number] Authorized 02/15/2025 05/17/2026 1 1 Scheduling Instructions Refer to Dr. Dwain Jurado at [facility] in [place] Encounter Details Date Type Department Care Team (Late st Contact Info) Description 02/15/2025 Results Follow-Up [facility] [address] [place] [phone] Jonathan Zhang MD [address] [place] [address] Social History Tobacco Use Types Packs/Day Years Used Date Smoking Tobacco: Former Cigarettes 0.5 15 Q uit: 2009 Smokeless Tobacco: Never Alcohol Use Standard Drinks/Week Comments Never 0 [...] Orientation Straight 02/05/2025 8: 48 AM EDT documented as of this encounter Plan of Treatment Upcoming Encounters Date Type Department Care Team (Late st Contact Info) Description 08/20/2025 10:15 AM EST Office Visit [facility] [address] [place] [address] Jonathan Zhang MD [address] [place] [address] documented as of this encounter Visit Diagnoses Diagnosis Anemia, unspecified type- Primary documented in this encounter Care Teams Customer Orders Clerk Relationship Specialty Start Date End Date Jonathan Zhang MD [address] [place] [address] PCP - General Family Medicine 03/09/22 documented as of this encounter
--- OUTSIDE RECORDS SUMMARY | 2025-05-07 08:05 | XMS_ITS | Data Portability ---
Author Organization [facility] [place] [facility] [place] [facility] Address [address] [place] [address] Assessment Encounter Date Assessment Date Assessment LastModified by Organization Details LastModified Time 05/19/2023 05/19/2023 f/u 6 mos [email or web address] Not available 11/2022 09:06:04 12/01/2023 12/01/2023 f/u 6 mos [email or web address] Not available 11:35:37 06/14/2024 06/14/2024 f/u 6 months ; skin check [email or web address] Not available 06/14/2024 09:37:17 09/22/2024 09/22/2024 f/u as scheduled [email or web address] Not available 09/22/2024 08:26:18 12/20/2024 12/20/2024 f/u 6 months ; skin check [email or web address] Not available 12/18/2024 08:04:49 Plan of Treatment Reminders Order Date Submit Date Provider Last Modified By Organization Details Last Modified Time Details Appointments DERM VISIT 2024 10:20A Yves JARVIS DO Not available Not available Not available Lab surgical pathology study - biopsy ; treated today ed&c 2024 025 [facility], [address] [place] [address], [phone], 12/21/2024 16:01:32 surgical pathology study 2022 023 [facility], [address] [place] [address], [phone], 05/20/2023 09:03:09 Referral None recorded. Procedures None recorded. Surgeries None recorded. Imaging None recorded. Medication Orders None recorded. Patient TargetsNo targets recorded. Patient Instructions Encounter Date Encounter Id Patient Instructions Last Modified By Organization Details Last Modified Time 05/19/2023 [id number] If any lesions change, or if any other new or symptomatic lesions occur, patient understands to return to the clinic for further evaluation Discussed sun precautions; SPF 30+ [email or web address] Not available 05/19/2023 09:06:04 12/01/2023 [id number] If any lesions change, or if any other new or symptomatic lesions occur, patient understands to return to the clinic for further evaluation Discussed sun precautions; SPF 30+ [email or web address] Not available 11/30/2023 11:35:37 06/14/2024 [id number] If any lesions change, or if any other new or symptomatic lesions occur, patient understands to return to the clinic for further evaluation Discussed sun precautions; SPF 30+ Not available 06/13/2024 07:04:15 12/20/2024 [id number] If any lesions change, or if any other new or symptomatic lesions occur, patient understands to return to the clinic for further evaluation Discussed sun precautions; SPF 30+ Not available 12/18/2024 08:04:49 Reason for Referral None Reported. Results Created Date Observation Date Name Description Value Unit Range Abnormal Flag Note LastModifiedBy Organization Detail LastModifiedTime 05/19/2005/19/2023 SURGI JONATHAN surgical SEE BELOW normal Depar tment of Patho logy Surgi jonathan Patho logy Repor t NAME: ALETHEA VillaMANJIT PATH. :[id number] Copy to: Diagn osis: Right wrist : Atypi jonathan liche noid kerat osis. SOURC E OF SPECI MEN: SKIN BIOPS Y, RIGHT WRIST CLINI JONATHAN INFOR MATIO N: SPECI MEN COLLE CTION NOTES : R/O SCC D 48.5 Gross Descr iptio n: Recei bettye in forma misael label ed with the patie nt's name and desig nated as righ t wrist is a shave biops y of skin (0.8 x 0.7 x 0.1 cm). The epide rmal surfa ce is white -wise and rough ened. The saúl n is inked blue. The speci men is trise cted and entir nancy submi tted in one casse tte. 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 Consi derat ions inclu de a hyper troph ic actin ic kerat osis with liche noid infla mmati on versu s a liche noid kerat osis with react tahir atypi a. No invas tahir squam ous cell carci noma is seen. KARENA CREWS M.D. Sylvia d Out Date: 05/20 09:02 Page 1 of 1 Not Available [facility] [address], [place], [address], 05/20/2023 09:03:09 12/21/19 25 12/20/2024 SURGI JONATHAN surgical SEE BELOW abnormal Surgi jonathan Patho logy Repor t NAME: MANJIT BAILEY PATH: [id number] DATE of : 01/27 061 Copy to: Diagn osis: Left dorsa l hand: Squam ous cell carci noma, well diffe renti ated; incom plete ly excis ed. Note: Tumor is prese nt at the inked edges of the biops y speci men. Clini jonathan histo ry of elect rodes iccat ion and curet tage. SOURC E OF SPECI MEN: SKIN BIOPS Y, LEFT DORSA L HAND CLINI JONATHAN INFOR MATIO N: D48.5 SPECI MEN COLLE CTION NOTES : R/O SCC biops y; treat ed today ed&c Gross Descr iptio n: Patie nt name and date of verif ied. Recei bettye in forma misael label ed with the karley nt's name and desig nated left dorsa l hand is a shave biops y of skin (1.4 x 0.9 x 0.3 cm). The epide rmal surfa ce is wise and rough ened. The saúl n is inked blue. The speci men is quadr isect ed and entir nancy submi tted in one casse tte label ed A1. JAB 12/20 02:26 PM Micro scopi c Descr iptio n: A micro scopi c exami natio n has been perfo rmed and the resul t(s) are as noted above . KARENA CREWS MD Sylvia d Out Date: 12/21 16:01 Page 1 of 1 Not Available [facility] [address] [place] [address], [phone], 12/21/2024 16:01:32 Result Notes None recorded. Procedures Surgical History Date Name Laterality Status Provider Name and Address Organization Details Recorded Time 12/21/19 25 Destruction MN Lesion; scalp, neck, hand, foot, genitalia completed [facility] 12/20/2024 09:32:08 12/21/19 25 Destruction BN Lesions completed ANGELIKA JARVIS DO [address] [place], [address], [facility] 12/20/2024 10:15:51 09/22/20 24 Destruction Premalignant Lesion(s) completed Aleyda Valdovinos [facility] 09/22/2024 11:27:12 06/14/20 24 Destruction Premalignant Lesion(s) completed ANGELIKA JARVIS DO [address] [place], [address], [facility] 06/14/2024 12:58:33 06/14/20 24 Destruction BN Lesions completed [facility] 06/14/2024 09:34:47 12/01/19 24 Destruction Premalignant Lesion(s) completed Linda Pinon [facility] 12/01/2023 09:39:35 12/01/19 24 Destruction BN Lesions completed [facility] 12/01/2023 09:41:32 05/19/20 23 Biopsy Skin Lesion; Tangential completed [facility] 05/19/2023 09:42:07 05/19/20 23 Destruction Premalignant Lesion(s) completed [facility] 05/19/2023 09:39:48 05/11/20 22 Biopsy Ear Lesion completed Cesilia Waltersl [facility] 05/11/2022 09:38:19 06/09/20 21 Destruction MN Lesion; trunk, arm, leg completed ANGELIKA JARVIS DO [address] [place], [address], [facility] 06/09/2021 17:57:50 05/20/20 21 Biopsy Skin Lesion; Tangential completed [facility] 05/20/2021 08:51:45 05/07/20 20 Biopsy Skin Lesion; Tangential completed [facility] 05/07/2020 14:00:31 05/07/20 20 Destruction Premalignant Lesion(s) completed [facility] 05/07/2020 14:00:33 06/27/20 19 Biopsy Skin Lesion; Tangential completed [facility] 06/27/2019 15:01:30 06/27/20 19 Destruction BN Lesions completed [facility] 06/27/2019 15:11:35 06/02/20 18 Destruction Premalignant Lesion(s) completed [facility] 06/02/2018 09:33:14 06/02/20 17 Destruction Premalignant Lesion(s) completed [facility] 06/02/2017 10:28:45 06/02/20 17 Destruction BN Lesions completed [facility] 06/02/2017 10:29:18 12/19/19 17 Wound Repair; Intermediate completed ANGELIKA JARVIS DO [address] [place], [address], [facility] 12/18/2016 16:09:43 12/19/19 17 Excision BN lesion; trunk, arms or legs completed ANGELIKA JARVIS DO [address] [place], [address], [facility] 12/18/2016 16:09:26 12/02/19 17 Biopsy Skin completed [facility] 12/02/2016 09:21:09 12/02/19 17 Destruction Premalignant Lesion(s) completed [facility] 12/02/2016 09:20:07 Imaging Results None recorded. Procedure Notes None recorded. Medical Equipment None Reported. Allergies No known drug allergies Medications Name Sig Start Date Stop Date Status Note LastModified by Organization Details LastModified Time ketoconazol e 2 % shampoo Wash into scalp, leave on for 1-2 minutes, then rinse out, daily as needed. 11/25 completed Not Available Not Available Not Available betamethaso ne, augmented 0.05 % topical cream Apply to the affected area in groin once a day for up to 2 weeks. Not for chronic daily use. 2022 active Not Available Not Available Not Avai lable alclometaso ne 0.05 % topical cream APPLY A THIN LAYER TO THE AFFECTED AREA(S) ON EYELIDS AND FACE BY TOPICAL ROUTE 2 TIMES PER DAY X 1-2 WEEKS PRN FLARES 11/25 completed Not Available Not Available Not Available triamcinolo ne acetonide 0.1 % topical cream Apply a thin layer to the affected areas of itching on the arms, nightly for 2 weeks, then twice a week, as needed. 11/25 completed Not Available Not Available Not Available ciclopirox 8 % topical solution APPLY TO THE AFFECTED AREA(S) BY TOPICAL ROUTE NIGHTLY ON, AROUND AND UNDER TOENAILS 2022 active Not Available Not Available Not Avai lable atorvastati n active Not Available Not Available Not Available aspirin active Not Available Not Avail able Not Available lisinopril active Not Available Not Av ailable Not Available Vitals None Recorded Social History Question Answer Notes LastModified by Organizat ion Details LastModified Time Tobacco Smoking Status Never Smoker [facility] 12/02/2016 08:50:23 What Was The Date Of Your Most Recent Tobacco Screening? 02/02/2018 Information n ot available 12/05/2019 Sex: Unknown Functional Status None recorded. Mental Status None recorded. Family History Relationship Description Onset Age of this Age Resolved Age Notes LastModified by Organization Details LastModified Time Father No current problems or disability [email or web address] Not available 12/02 08:50:17 Mother No current problems or disability [email or web address] Not available 12/02 08:50:17 Medical History Condition Response Skin Cancer N Melanoma N Other Skin Condition Y Past Encounters Encounter ID Performer Location Encounter Start Date Encounter Closed Date Diagnosis/Indication Diagnosis SNOMED-CT Code Diagnosis ICD10 Code Diagnosis Note [id number] ANGELIKA JARVIS DO [facility] [address] [place] [address] 12/02/2016 08:33:54 12/02/2016 09:32:22 Solar lentiginosis 597055009 L81.4 Benign Reassuranc e If any lesions change, or if any other new or symptomati c lesions occur, patient understand s to return to the clinic for further evaluation Discussed sun precaution s; SPF 30+f/u 12 months fse Actinic keratosis 598659 007 L57.0 right helix x 1right antihelix x 15 right forearm5 left forearmtre ated with LN Seborrheic dermatitis 50 436815 L21.9 scalpdiscu ssed diagnosis and treatment r/a/b Senile angioma 1285614 I 78.1 Benign Reassuranc e If any lesions change, or if any other new or symptomati c lesions occur, patient understand s to return to the clinic for further evaluation Discussed sun precaution s; SPF 30+ Multiple b enign melanocytic nevi 168576250 D22.9 Benign Reassuranc e If any lesions change, or if any other new or symptomati c lesions occur, patient understand s to return to the clinic for further evaluation Discussed sun precaution s; SPF 30+ Neoplasm o f uncertain behavior of skin 88553740 D48.5 R/O ANright lower backshave bx [id number] ANGELIKA JARVIS DO [facility] [address] [place] [address] 12/18/2016 08:31:55 12/18/2016 10:31:28 Dysplastic nevus of skin 865751646 D22.9 right lower back An excision was yandel d. Discussed the risks, alternativ es, and benefits of procedure. An informed consent was discussed with patient and signed. See procedure note. Patient tolerated well. Recommend f/u in 2 weeks S/R [id number] ANGELIKA JARVIS DO [facility] [address] [place] [address] 06/02/2017 09:28:09 06/04/2017 08:00:39 History of atypical nevus 4308632728 101 Z86.018 no recurrence Multiple b enign melanocytic nevi 451299541 D22.9 Benign Reassuranc e If any lesions change, or if any other new or symptomati c lesions occur, patient understand s to return to the clinic for further evaluation Discussed sun precaution s; SPF 30+ f/u 12 months fse Solar lentiginosis 19627 2007 L81.4 Benign Reassuranc e If any lesions change, or if any other new or symptomati c lesions occur, patient understand s to return to the clinic for further evaluation Discussed sun precaution s; SPF 30+f/u 12 months fse Actinic keratosis 666859 007 L57.0 right angle of the jaw x 1left cheek x 1right dorsal hand x 2left dorsal hand x [address] Senile angioma 3128423 I 78.1 Benign Reassuranc e If any lesions change, or if any other new or symptomati c lesions occur, patient understand s to return to the clinic for further evaluation Discussed sun precaution s; SPF 30+ Verruca vulgaris 5846132 3 B07.9 left 5th digittreat ed with LN x 3 cycles Seborrheic dermatitis 50 217806 L21.9 scalpdoing well with selsun blue shampoook to continue Skin sensa tion disturbance 52156757 R20.9 wart [id number] WARNER JARA APRN [facility] [address] [place] [address] 02/02/2018 08:52:57 02/02/2018 10:42:16 Dermatitis of eyelid 77811088 H01.139 MILD FLARE ALCLOMETAS ONE CREAM BID X 1- 2 WEEKS PRN FLARES PCP GAVE EUCRISA-NO T BENEFICIAL AND TOO EXPENSIVE Eczema 22755761 L30.9 MILD FLARE CETAPHIL ECZEMA OR CERAVE CLEANSER AND MOISTURIZE R DAILY RECOMMENDE D START TRIAMCINOL ONE CREAM 0.1 % BID X 2 WEEKS PRN FLARES [id number] ANGELIKA JARVIS DO [facility] [address] [place] [address] 06/02/2018 09:02:25 06/02/2018 13:29:32 History of atypical nevus 7012631107 101 Z86.018 R lower back - no recurrence Multiple b enign melanocytic nevi 083745361 D22.9 Benign Reassuranc e Actinic keratosis 978052 007 L57.0 Education then treated with LN; R neck x1 pt tolerated well advised pt what to expect with freezing Solar lentiginosis 76934 2006 L81.4 Benign Reassuranc e Senile angioma 2685039 I 78.1 Benign Reassuranc e Senile hyperkeratosis 39 5846264 L82.1 Benign Reassuranc e Verruca vulgaris 0878690 3 B07.9 left 5th digitdecli shawn treatment today , asymptomat ic [id number] ANGELIKA JARVIS DO [facility] [address] [place] [address] 06/27/2019 13:49:45 06/28/2019 08:18:28 History of atypical nevus 2633021136 101 Z86.018 R lower back - no recurrence Multiple b enign melanocytic nevi 976810832 D22.9 Benign Reassuranc e Solar lentiginosis 15545 2006 L81.4 Benign Reassuranc e Senile angioma 6521705 I 78.1 Benign Reassuranc e Senile hyperkeratosis 39 8697657 L82.1 Benign Reassuranc e Neoplasm o f uncertain behavior of skin 37098664 D48.5 right alar/o BCC shave biopsy see procedure note wound care instructio ns provided patient consents for procedure and photo monitoring Inflamed s eborrheic keratosis 669176316 L82.0 Education, then cryo destructio n with liquid nitrogen (LN) x 4 Balanitis 89021691 N48.1 balanitis, one oval lesion on glans could be zoons or GA 2 mos hx recommend betamethas one bid for 2 weeks discussed with pt and , that if not resolved in 2 weeks, then he needs to come back in, and may do a biopsy. they voiced understand ing and agreed with plan. Skin sensa tion disturbance 56284305 R20.9 ISKs [id number] ANGELIKA JARVIS DO [facility] [address] [place] [address] 10/31/2019 08:02:57 10/31/2019 10:45:41 History of malignant basal cell neoplasm of skin 394898742 Z85.828 s/p mohs on his right ala well healed Senile hyperkeratosis 39 1137176 L82.1 Benign Reassuranc e on forearms Balanitis 78060635 N48.1 hx of balanitis completely resolved per pt declined exam [id number] DO [facility] [address] [place] [address] 05/07/2020 13:11:29 05/07/2020 14:05:31 History of atypical nevus 9480594730 101 Z86.018 R lower back - no recurrence Multiple b enign melanocytic nevi 219099988 D22.9 Benign Reassuranc e Discussed sun precaution s; SPF 30+ Solar lentiginosis 14151 2006 L81.4 Benign Reassuranc e Senile angioma 1692955 I 78.1 Benign Reassuranc e Raised latha orrheic keratosis 9922501691 21724 L82.1 Benign Appearance History of malignant basal cell neoplasm of skin 771283108 Z85.828 s/p mohs on his right ala well healed Actinic keratosis 705595 007 L57.0 Education, then cryodestru ction with liquid nitrogen (LN) x 1 Neoplasm o f uncertain behavior of skin 76750852 D48.5 right wristr/o SCCshave biopsy see procedure note wound care instructio ns provided patient consents for procedure and photo monitoring [id number] ANGELIKA JARVIS DO [facility] [address] [place] [address] 05/20/2021 08:21:03 05/20/2021 09:18:17 History of atypical nevus 0568661302 101 Z86.018 R lower back - no recurrence Multiple b enign melanocytic nevi 514804121 D22.9 Benign Reassuranc e Discussed sun precaution s; SPF 30+ Solar lentiginosis 29829 2006 L81.4 Benign Reassuranc e Senile angioma 1415919 I 78.1 Benign Reassuranc e Raised latha orrheic keratosis 5017501960 19842 L82.1 Benign Appearance History of malignant basal cell neoplasm of skin 275914441 Z85.828 s/p mohs on his right ala well healed Neoplasm o f uncertain behavior of skin 92080224 D48.5 R distal forearmsha ve biopsysent for pathr/o SCCWound care discussed with patient. Leave the bandage on for 24 hrs. Clean the area daily with warm soapy water, and apply polysporin ointment and a bandaid once daily until healed. Call the office if any increase in redness, drainage, or pain. Pruritic disorder 440283 002 L29.9 chronicfla res off and on with armssample s of cerave anti-itch lotion given for patient to tryalso- start TAC Rx as directed, but he can try OTC above first Ptosis of eyelid 5920262 0 H02.409 significan t bilateralr efer to Dr Anguiano for evaluation and possible blepharopl asty [id number] ANGELIKA JARVIS DO [facility] [address] [place] [address] 06/09/2021 15:22:55 06/10/2021 08:10:52 Squamous cell carcinoma of upper extremity 860811491 C44.622 SCCright forearmdis cussed diagnosis recommende d EDCr/a/b, ICsee procedure note wound care discussedf ollow up as scheduled. wound care discussed [id number] ANGELIKA JARVIS DO [facility] [address] [place] [address] 11/25/2021 08:22:48 11/25/2021 09:04:22 History of atypical nevus 8856166780 101 Z86.018 R lower back - no recurrence Multiple b enign melanocytic nevi 878474182 D22.9 Benign Reassuranc e Discussed sun precaution s; SPF 30+ Solar lentiginosis 66631 2006 L81.4 Benign Reassuranc e Senile angioma 8130468 I 78.1 Benign Reassuranc e Raised latha orrheic keratosis 1122806889 43614 L82.1 Benign Appearance History of malignant basal cell neoplasm of skin 601179040 Z85.828 s/p mohs on his right ala well healed Ptosis of eyelid 1323389 0 H02.[address] Anguiano for evaluation History of squamous cell carcinoma of skin 826094046 Z85.828 right forearmno recurrence [id number] WARNER JARA APRN [facility] [address] [place] [address] 04/14/2022 11:43:32 04/14/2022 12:22:37 Niki 305823494 L72.0 EXTRACTED X1PT GAVE VERBAL CONSENT POST OP CARE DISCUSSED [id number] ANGELIKA JARVIS DO [facility] [address] [place] [address] 05/11/2022 09:03:05 05/11/2022 09:55:41 History of atypical nevus 5781205715 101 Z86.018 R lower back - no recurrence Multiple b enign melanocytic nevi 008015304 D22.9 Benign Reassuranc e Discussed sun precaution s; SPF 30+ Solar lentiginosis 54081 2006 L81.4 Benign Reassuranc e Senile angioma 7080865 I 78.1 Benign Reassuranc e Raised latha orrheic keratosis 3513979161 48616 L82.1 Benign Appearance History of malignant basal cell neoplasm of skin 763303272 Z85.828 s/p mohs on his right ala well healed Ptosis of eyelid 7483240 0 H02.409 jacinda Lassiter gianfranco has seen Dr Anguiano for evaluation and is scheduled History of squamous cell carcinoma of skin 895015224 Z85.828 right forearmno recurrence Neoplasm o f uncertain behavior of skin 49867905 D48.5 right earlobesha ve biopsysent for pathr/o atypiaWoun d care discussed with patient. Leave the bandage on for 24 hrs. Clean the area daily with warm soapy water, and apply polysporin ointment and a bandaid once daily until healed. Call the office if any increase in redness, drainage, or pain. [id number] ANGELIKA JARVIS DO [facility] [address] [place] [address] 11/16/2022 08:51:03 11/16/2022 09:38:53 History of atypical nevus 1501041269 101 Z86.018 R lower back - no recurrence Multiple b enign melanocytic nevi 049903083 D22.9 Benign Reassuranc e Discussed sun precaution s; SPF 30+ Solar lentiginosis 24092 2006 L81.4 Benign Reassuranc e Senile angioma 0992703 I 78.1 Benign Reassuranc e Raised latha orrheic keratosis 6082827494 29885 L82.1 Benign Appearance History of malignant basal cell neoplasm of skin 743529410 Z85.828 s/p mohs on his right ala well healed Ptosis of eyelid 1630393 0 H02.409 resolved with surgery History of squamous cell carcinoma of skin 282059464 Z85.828 right forearmno recurrence Onychomyco sis of toenails 233585269 B35.1 several toes on left footchroni cexacerbat ionconcern over oral antifungal and other meds/stati n, etc. will have him use ciclopirox solution nightlyif not improved can try oral med f/u 6 months [id number] ANGELIKA JARVIS DO [facility] [address] [place] [address] 05/19/2023 09:03:06 05/19/2023 09:53:59 History of atypical nevus 8104705535 101 Z86.018 R lower back - no recurrence Multiple b enign melanocytic nevi 596934884 D22.9 Benign Reassuranc e Solar lentiginosis 2006 L81.4 Benign Reassuranc e recommende d sun protective clothing and a mineral based sunscreen 30 SPF or higher lotion OTC daily Senile angioma 5023318 I 78.1 Benign Reassuranc e Raised latha orrheic keratosis 8014476455 49398 L82.1 Benign Appearance History of malignant basal cell neoplasm of skin 330606228 Z85.828 s/p mohs on his right ala - no recurrence Ptosis of eyelid 8357206 0 H02.409 resolved with surgery History of squamous cell carcinoma of skin 249900026 Z85.828 right forearm -no recurrence Onychomyco sis of toenails 547031518 B35.1 several toes on left footchroni cstablePat ient is not interested in tx right now as it is asymptomat ic f/u 6 months Neoplasm o f uncertain behavior of skin 85184908 D48.5 right wristr/o SCC shave biopsy performed sent for path see procedure note wound care instructio ns provided patient consents for procedure and photo monitoring Actinic keratosis 007 L57.0 Education then treated with LN; right distal forearm x 1, left preauricul ar x 2, right preauricul ar x2 pt tolerated well advised pt what to expect with freezing [id number] ANGELIKA JARVIS, DO [facility] [address] [place] [address] 12/01/2023 09:07:48 12/01/2023 09:50:55 History of atypical nevus 8184881439 101 Z86.018 R lower back - no recurrence History of squamous cell carcinoma of skin 795110021 Z85.828 right forearm -no recurrence History of malignant basal cell neoplasm of skin 386768437 Z85.828 s/p mohs on his right ala - no recurrence Multiple b enign melanocytic nevi 918126498 D22.9 Benign Reassuranc e Solar lentiginosis 83608 2006 L81.4 Benign Reassuranc e recommende d sun protective clothing and a mineral based sunscreen 30 SPF or higher lotion OTC daily Senile angioma 7300501 I 78.1 Benign Reassuranc e Raised latha orrheic keratosis 7638796006 54204 L82.1 Benign Appearance Ptosis of eyelid 8590885 0 H02.409 resolved with surgery Onychomyco sis of toenails 417470630 B35.1 chronicsta blePatient is not interested in tx right now as it is asymptomat ic f/u 6 months Actinic keratosis 007 L57.0 Education then treated with LN; left angle of jaw x 1pt tolerated welladvise d pt what to expect with freezing Verruca vulgaris 3199633 3 B07.9 Education then treated with LN; left fifth digit x 1 pt tolerated well advised pt what to expect with freezingTr eated with LN per patients request Tenderness of skin 82671 9000 R20.8 wart, bothersome to patient [id number] ANGELIKA JARVIS DO [facility] [address] [place] [address] 06/14/2024 08:56:57 06/14/2024 09:45:41 History of atypical nevus 6038043373 101 Z86.018 R lower back - no recurrence History of squamous cell carcinoma of skin 017775820 Z85.828 right forearm -no recurrence History of malignant basal cell neoplasm of skin 756905751 Z85.828 s/p mohs on his right ala - no recurrence Multiple b enign melanocytic nevi 789439231 D22.9 Benign Reassuranc e Solar lentiginosis 02671 2007 L81.4 Benign Reassuranc e recommende d sun protective clothing and a mineral based sunscreen 30 SPF or higher lotion OTC daily Senile angioma 4572698 I 78.1 Benign Reassuranc e Raised latha orrheic keratosis 8273675589 83185 L82.1 Benign Appearance Ptosis of eyelid 7204738 0 H02.409 resolved with surgery Onychomyco sis of toenails 430718170 B35.1 chronicsta blePatient is not interested in tx right now as it is asymptomat ic f/u 6 months Actinic keratosis 418456 007 L57.0 Education then treated with LN; right ear X2, left forearm X1pt tolerated welladvise d pt what to expect with freezing Inflamed s eborrheic keratosis 163717116 L82.0 Education then treated with LN; right elbow N7Vpbgpp, Irritated, & bothersome to patientpt tolerated welladvise d pt what to expect with freezingre commended pt to apply aquaphor on the areas listed above to improve healing Tenderness of skin 64292 9000 R20.8 ISK ; bothersome [id number] ANGELIKA JARVIS DO [facility] [address] [place] [address] 09/22/2024 10:44:03 09/22/2024 11:43:20 Actinic keratosis 977784806 L57.0 Education then treated with LN; Lt dorsal hand x1pt tolerated welladvise d pt what to expect with freezingF/ u as scheduled 12/2024 for FSE [id number] ANGELIKA JARVIS DO [facility] [address] [place] [address] 12/20/2024 09:03:49 12/20/2024 09:45:08 History of atypical nevus 6171770385 101 Z86.018 R lower back - no recurrence History of squamous cell carcinoma of skin 782682211 Z85.828 right forearm -no recurrence History of malignant basal cell neoplasm of skin 110687659 Z85.828 s/p mohs on his right ala - no recurrence Multiple b enign melanocytic nevi 584249180 D22.9 Benign Reassuranc e Solar lentiginosis 89201 2006 L81.4 Benign Reassuranc e recommende d sun protective clothing and a mineral based sunscreen 30 SPF or higher lotion OTC daily 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 Benign Reassuranc e Raised latha orrheic keratosis 5183442852 19288 L82.1 Benign Appearance Neoplasm o f uncertain behavior of skin 51681087 D48.5 left dorsal handr/o SCCshave biopsy performedt reated today ed&csent for pathsee procedure notewound care instructio ns providedpa tient consents for procedure and photo monitoring Inflamed s eborrheic keratosis 684405446 L82.0 Education then treated with LN; right dorsal hand X2, right forearm T7Ifqsma, Irritatedp t tolerated welladvise d pt what to expect with freezingre commended pt to apply aquaphor on the areas listed above to improve healing Tenderness of skin 63816 9000 R20.8 ISK ; bothersome itchy to patient Squamous c ell carcinoma of hand 563187164 C44.629 left dorsal handDiscus sed diagnosisC linical SCCinitial shave bx, thenrecomm end treatment with ED&Cno further treatment should be needed r/a/b of procedure discussed with patientinf ormed consent signedsee procedure notef/u 4-6 months for FSEWound care discussed with patient. Leave the bandage on for 24 hrs. Clean the area daily with warm soapy water, and apply polysporin ointment and a bandaid once daily until healed. Call the office if any increase in redness, drainage, or pain. Health Concerns Section Related Observation LastModified by Organization Detai ls LastModified Time None Recorded Concern Status LastModified by Organization Details LastModified Time None Recorded Advance Directives Directive None Recorded Payers Insurance Date Sequence Insurance Name Policy Number Policy Abdi Covered Member ID Abdi Member ID Guarantor Name 12/23/2024 2 [place] [id number] Manjit Landa [id number] Manjitbria Landa 12/20/2024 1 [place] Manjit Landa [id number] Manjit Landa 05/08/2017 2 UNSPECIFIED REMIT PAYOR Manjit Landa Notes Date Note Type Note Provider Name and Address Organization Details Recorded Time 05/19/2023 text/html Established patient - declined gown Patient presents today for a 6 month full body skin check . Patient has lesions on his right wrist he would like evaluated. Patient feels the Ciclopirox did not work well. check spots h/o DN, SCC, BCC no new, changing, bleeding, or symptomatic lesions to report ANGELIKA JARVIS DO [address] [place], [address], [facility] 05/19/2023 13:13:08 12/01/2023 text/html Established patient - declined gown Patient presents today for a 6 month full body skin check . Per pt no lesions of concern. check spots h/o DN, SCC, BCC no new, changing, bleeding, or symptomatic lesions to report ANGELIKA JARVIS DO [address] [place], [address], [facility] 12/01/2023 13:12:07 06/14/2024 text/html Established patient Patient presents today for a 6 month waist up skin check . lesion on right elbow, check scalp check spots over Bodypatient declined gown- will just move clothe around h/o DN, SCC, BCC no new, changing, bleeding, or symptomatic lesions to report ANGELIKA JARVIS DO [address] [place], [address], [facility] 06/14/2024 12:59:17 09/22/2024 text/html Established Patient Presents for skin lesion on Lt dorsal hand for 1 month. He states he had a blood draw in the site prior to lesion appearing and the area became red, itchy, and puffy . Pt states site was sore, but has since improved. H/o DN, SCC, BCC Denies any other new or changing lesions. Feels well today. Denies family history of malignant melanoma. ANGELIKA JARVIS DO [address] [place], [address], [facility] 09/22/2024 12:19:42 12/20/2024 text/html Established patient Patient presents today for a 6 month waist up skin check check spotspainful spot on hand patient declined gown- will just move clothes around h/o DN, SCC, BCC no new, changing, bleeding, or symptomatic lesions to report DO [place], [address], [facility] 12/21/2024 16:58:39
--- OUTSIDE RECORDS SUMMARY | 2025-05-07 08:05 | XMS_ITS | Data Portability ---
Author Organization [facility] ADMIN Address [address] [place] [address] Care Team Providers Care Fence Repairman Name Role Phone MARY SHA Primary Care Provider [phone] Assessment No assessment recorded. Plan of Treatment Reminders Order Date Submit Date Provider Last Modified By Organization Details Last Modified Time Details Appointments None record ed. Lab None record ed. Referral None record ed. Procedures None record ed. Surgeries None record ed. Imaging None record ed. Medication Orders None record ed. Patient TargetsNo targets recorded. Patient InstructionsNo instructions recorded. Reason for Referral None Reported. Problems Name Problem SNOMED Code Status Onset Date Resolution Date Notes Provider Name and Address Organization Details Recorded Time Sensorineural hearing loss 28152148 Active 2022 ASHLEY LARA, AUD [address] Formerly [facility], [place], [address] , [facility] [place] 3 12:21:45 Problem Notes None recorded. Medical Equipment None Reported. Allergies No known drug allergies Medications Name Sig Start Date Stop Date Status Note LastModified by Organization Details LastModified Time cyclobenzapr ine 10 mg tablet TAKE 1 TABLET BY MOUTH THREE TIMES DAILY NEEDED FOR MUSCLE SPASM active Not Available Not Available No t Available atorvastatin 80 mg tablet TAKE 1 TABLET BY MOUTH ONCE DAILY active Not Available Not Available No t Available torsemide 20 mg tablet TAKE 1 TABLET BY MOUTH ONCE DAILY active Not Available Not Available No t Available oxybutynin chloride ER 10 mg tablet,exten ded release 24 hr TAKE ONE TABLET BY MOUTH EVERY DAY active Not Available Not Available No t Available meloxicam 15 mg tablet TAKE 1 TABLET BY MOUTH ONCE DAILY WITH FOOD active Not Available Not Available No t Available betamethason e, augmented 0.05 % topical cream APPLY CREAM TOPICALLY TO AFFECTED AREA IN GROIN ONCE DAILY FOR UP TO 2 WEEKS, NOT FOR CHRONIC DAILY USE active Not Available Not Available No t Available aspirin 81 mg tablet,delay ed release TAKE 1 TABLET BY MOUTH ONCE DAILY active Not Available Not Available No t Available prednisolone acetate 1 % eye drops,suspen minh active Not Available Not Available Not Available erythromycin 5 mg/gram (0.5 %) eye ointment INSTILL OINTMENT TO SUTURES OF AFFECTED EYE(S) THREE TIMES DAILY FOR 7 DAYS OR DIRECTED, THEN BEGIN DAILY MASSAGE active Not Available Not Available No t Available lisinopril 10 mg tablet TAKE 1 TABLET BY MOUTH ONCE DAILY active Not Available Not Available No t Available dexamethason e sodium phosphate 4 mg/mL injection solution USE 1 TO 2 ML TOPICALLY PER VISIT DIRECTED FOR IONTOPHORES IS IN PHYSICAL THERAPY active Not Available Not Available No t Available amoxicillin 875 mg-potassium clavulanate 125 mg tablet TAKE 1 TABLET BY MOUTH TWICE DAILY active Not Available Not Available No t Available peg 3350-electro lytes 236 gram-22.74 gram-6.74 gram-5.86 gram solution DRINK 240ML BY MOUTH EVERY 10 MINUTES FOR PREP UNTIL FECAL EFFLUENT IS CLEAR active Not Available Not Available No t Available FeroSul 325 mg (65 mg iron) tablet TAKE 1 TABLET BY MOUTH ONCE DAILY active Not Available Not Available No t Available Gavilyte-C 240 gram-22.72 gram-6.72 gram-5.84 gram oral solution DRINK 240ML BY MOUTH EVERY 10 MINUTES UNTIL FECAL EFFLUENT IS CLEAR active Not Available Not Available No t Available Paxlovid 300 mg (150 mg x 2)-100 mg tablets in a dose pack TK 2 NIRMATRELVI R TS AND 1 RITONAVIR T TOGETHER PO BID FOR 5 DAYS active Not Available Not Available No t Available Vitals None Recorded Social History None recorded. Functional Status None recorded. Mental Status None recorded. Family History Nothing Reported. Medical History No medical history recorded. Past Encounters Encounter ID Performer Location Encounter Start Date Encounter Closed Date Diagnosis/Indication Diagnosis SNOMED-CT Code Diagnosis ICD10 Code Diagnosis Note [id number] ASTRID LAINEZ [facility] G -[address] [address] 11/19/2022 11:08:28 11/19/2022 11:40:41 Sensorineural hearing loss 71828180 H90.3 [id number] ASTRID LAINEZ [facility] [place] [address] [address] [place] [id number] 12/24/2022 11:15:26 12/24/2022 11:59:14 Sensorineural hearing loss 95394347 H90.3 [id number] ASTRID LAINEZ [facility] [place] [id number] 12/31/2022 08:46:27 12/31/2022 09:28:13 Sensorineural hearing loss 44257035 H90.3 [id number] ASTRID LAINEZ [facility] [place] [id number] 02/18/2023 08:03:58 02/18/2023 08:09:31 Sensorineural hearing loss 43415528 H90.3 [id number] ASTRID LAINEZ [facility] [place] [id number] 07/29/2023 08:16:40 07/29/2023 08:17:07 Sensorineural hearing loss 19464981 H90.3 [id number] ASTRID LAINEZ [facility] [place] [id number] 10/28/2023 09:53:53 10/28/2023 10:00:28 Sensorineural hearing loss 87654179 H90.3 [id number] ASTRID LAINEZ [facility] [place] [id number] 11/11/2023 16:09:50 11/11/2023 16:21:31 Sensorineural hearing loss 70138785 H90.3 [id number] ASTRID LAINEZ [facility] [address] [place] [address] 03/30/2024 09:45:54 03/30/2024 10:02:34 Sensorineural hearing loss 07285001 H90.3 [id number] ASTRID LAINEZ [facility] [address] [facility] [address] [place] [address] 05/04/2024 11:12:34 05/04/2024 11:21:22 Sensorineural hearing loss 58596050 H90.3 [id number] ASTRID LAINEZ [facility] [address] [place] [address] 11/02/2024 09:14:57 11/02/2024 09:24:57 Sensorineural hearing loss 37177710 H90.3 Health Concerns Section Related Observation LastModified by Organization Detai ls LastModified Time None Recorded Concern Status LastModified by Organization Details LastModified Time None Recorded Advance Directives Directive None Recorded Payers Insurance Date Sequence Insurance Name Policy Number Policy Abdi Covered Member ID Abdi Member ID Guarantor Name 04/03/2025 1 [place] Addie Landa [id number] Addie Landa 11/19/2022 [employer] Addie LANDA, ADDIE LANDA, ADDIE Addie Landa 04/18/2025 2 [place]) [id number] Addie J Landa [id number] Addie Landa Notes Date Note Type Note Provider Name and Address Organization Details Recorded Time 11/11/2023 text/html Patient was seen today for a hearing aid service. Cleaned and adjusted hearing aids this date. ASTRID LAINEZ [address] , [place], [address], [facility] [place] 11/11/2023 16:25:57 03/30/2024 text/html Patient was seen today for a hearing aid service. Cleaned and adjusted hearing aids this date. ASTRID LAINEZ [address] , [place], [address], [facility] [place] 03/30/2024 10:49:05 05/04/2024 text/html Patient was seen today for a hearing aid service. Cleaned and adjusted hearing aids this date. ASHLEY LARA, ASTRID [address], [place], [address], [facility] [place] 05/04/2024 11:22:15 11/02/2024 text/html Patient was seen today for a hearing aid service. Cleaned and adjusted hearing aids this date. ASHLEY LARA, ASTRID [address], [place], [address], [place] - [facility] [place] 11/02/2024 09:25:36
[2025-05-07 09:34] LABS: Hematocrit 36.2 % (42.0-52.0); Hemoglobin 11.7 g/dL (14.1-18.0); Mean Corpuscular Volume 89.4 fl (80-94); Red Blood Count 4.05 M/mm3 (4.60-6.20); White Blood Count 3.3 K/mm3 (4.8-10.8)
[2025-05-07 09:35] LABS: Immature Granulocytes % 0.6 %; Mean Corpuscular HGB Conc 32.3 g/dL (31.8-35.4); Mean Corpuscular Hemoglobin 28.9 pg (27.0-31.2); Nucleated Red Blood Cells % 0 %; Platelet Count 216 K/mm3 (142-424); Red Cell Distribution Width-SD 48.2 fL
[2025-05-07 09:36] LABS: Hematocrit 35.7 % (42.0-52.0); Hemoglobin 11.6 g/dL (14.1-18.0)
[2025-05-07 11:08] LABS: Alanine Aminotransferase 28 U/L (12-78); Albumin Level 4.8 g/dl (3.5-5.0); Albumin/Globulin Ratio 2.4 (1.1-1.8); Alkaline Phosphatase 89 U/L (38-126); Anion Gap 11.2 mEq/L (5-15); Aspartate Amino Transferase 60 U/L (17-59); Bilirubin,Total 0.6 mg/dl (0.2-1.3); Blood Urea Nitrogen 20 mg/dl (9-20); Calcium 9.7 mg/dl (8.4-10.2); Carbon Dioxide 28 mmol/L (22.0-30.0); Chloride 100 mmol/L (98-107); Creatinine,Serum 1.20 mg/dl (0.66-1.25); Estimated Glomerular Filt Rate 59 ml/min (>60); GFR (African American) 71 ML/MIN (>60); Globulin 2.0 g/dL (1.3-3.2); Glucose 98 mg/dl (74-100); Potassium 4.2 mmoL/L (3.5-5.1); Sodium 135 mmol/L (136-145); Total Protein,Serum 6.8 g/dl (6.3-8.2)
[2025-05-07 12:11] LABS: Iron 78 ug/dL (49-181)
[2025-05-07 12:21] LABS: Total Iron Binding Capacity 318 ug/dL (261-462)
[2025-05-07 12:48] LABS: Ferritin 136 ng/ml (17.9-464)
== END 2025-05-07 23:59 | disposition home or self-care (01) ==
LOC: LAB 08:03
PROVIDERS: Internal Medicine Medical Oncology; PCP Family Medicine; Visit Provider Surgery
DX: D50.9 Iron deficiency anemia, unspecified (principal); M25.572 Pain in left ankle and joints of left foot
CPT/HCPCS: 36415; 80053; 82728; 83540; 83550; 85014; 85018; 85025; 85300; 85301

== ENCOUNTER 2025-05-07 09:07 | Outpatient (CLI) | payer MEDICARE, BC, SELFPAY ==
--- OUTSIDE RECORDS SUMMARY | 2025-05-07 09:14 | XMS_ITS | Clinical Summary ---
Author Organization [facility] Address [address] [place] [address] Care Team Providers Care Granite Polisher Machine Name Role Phone Jonathan Zhang MD Primary [...] regular appointment. Coronary artery disease invo lving [place] coronary artery of [place] heart without angina pectoris 03/09/2022 Assessment & [...] Type Department Care Team Description 02/16/2025 Telephone [facility] [address] [address] Jonathan Zhang MD CALLBACK 02/15/2025 Results Follow-Up [facility] [address] [address] Jonathan Zhang MD 02/12/2025 8:45 AM EDT Office Visit [facility] [address] [place] [place] [address] Jonathan [...] Description 08/20/2025 10:15 AM EST Office Visit [facility] [address] [address] [...] - 02/13/2025 3:07 AM EDT Performed at: [address] [place] [address] [address] [place], [place] [id number] Press Tender Short Goods: Ha Recio MD, Phone: [phone] Patient Fasting: N Jontahan Zhang MD LAB BLOOD ORDERABLES Fin al Result Performing Organization Address [facility] de Phone Number [facility] (AMBULATORY) [address] [place] [address], [place] [phone] [facility] [address] [place] [address], * Reticulocytes (02/12/2025 8:50 AM EDT) Reticulocyte Absolute 1.11 0.70 - 1.90 % [facility] Blood 02/12/2025 8:50 AM EDT 02/12/2025 Narrative [facility] (AMBULATORY) - 02/13/2025 3:07 AM EDT Performed at: [address] [place] [address] [address] [place], [place] [id number] Press Tender Short Goods: Ha Recio MD, Phone: [phone] Patient Fasting: N Jonathan Zhang MD LAB BLOOD ORDERABLES Fin al Result Performing Organization Address City/[facility]/ZIP Co de Phone Number [facility] (AMBULATORY) [address] [place] [address], [place] [phone] [facility] [address] [place] [id number], * (ABNORMAL) CBC (No Diff) (02/12/2025 8:50 [...] 02/12/2025 8:50 AM EDT 02/12/2025 Narrative [facility] (AMBULAT[facility]) - 02/13/2025 3:07 AM EDT Performed at: [address] [place] [id number] Press Tender Short Goods: Ha Recio MD, Phone: [phone] Patient Fasting: N us Jonathan Zhang MD LAB BLOOD ORDERABLES Fin al Result [facility] ([facility]) [address] [place] [address], [facility] [address] [place] [address], * (ABNORMAL) Lactate Dehydrogenase (02/12/2025 8:50 AM EDT) LDH 426(H) 135 - 225 U/L [facility] Blood 02/12/2025 8:50 AM EDT 02/12/2025 Narrative [facility] ([facility]) - 02/13/2025 3:07 AM EDT Performed at: [address] [facility] [address] [place], [place] [id number] Press Tender Short Goods: Ha Recio MD, Phone: [phone] Patient Fasting: N Jonathan Zhang MD LAB BLOOD ORDERABLES Fin al Result Performing Organization Address [facility] Co de Phone Number [facility] (AMBULATORY) [address] [place] [address], [facility] [address] [place] [address], [place] [phone] * Ferritin (02/12/2025 8:50 AM EDT) Ferritin 236.00 30.00 - 400.00 ng/mL [facility] Comment:Results may be false ly decreased if patient taking Biotin. Blood 02/12/2025 8:50 AM EDT 02/12/2025 Narrative [facility] (AMBULATORY) - 02/13/2025 3:07 AM EDT Performed at: [facility] [address] [place], [place] [id number] Press Tender Short Goods: Ha Recio MD, Phone: [phone] Patient Fasting: N Jonathan Zhang MD LAB BLOOD ORDERABLES Fin al Result Performing Organization Address [facility] Co de Phone Number [facility] (AMBULATORY) [address] [place] [address], [facility] [address] [place] [address], * Vitamin B12 (02/12/2025 8:50 AM EDT) Vitamin B-12 559 211 - 946 pg/mL [facility] Comment:Results may be false ly increased if patient taking Biotin. Blood 02/12/2025 8:50 AM EDT 02/12/2025 Narrative [facility] (AMBULATORY) - 02/13/2025 3:07 AM EDT Performed at: [facility] [address] [place], [place] [id number] Press Tender Short Goods: Ha Recio MD, Phone: [phone] Patient Fasting: N us Jonathan Zhang MD LAB BLOOD ORDERABLES Fin al Result [facility] (AMBULATORY) [address] [place] [address], [place] [phone] [facility] [address] [place] [address], [place] [phone] * (ABNORMAL) Basic Metabolic Panel (02/12/2025 8:50 AM EDT) [facility] Glucose 92 65 - 99 mg/dL [facility] [...] decrease G5 14 or less Kidney failure/X0909/ /[id number]/ (1)In the absence of evidence of kidney [...] 02/13/2025 3:07 AM EDT Performed at: [address] [facility] [address], [place], [place] [id number] Press Tender Short Goods: Ha Recio MD, Phone: [phone] Patient Fasting: N Jonathan Zhang MD LAB BLOOD ORDERABLES Fin al Result [facility] (AMBULATORY) [address] [place] [address], [facility] [address] [place] [address], from Last 3 Months Insurance [id number] [place] [address] MEDICARE A & B [facility] Care Teams Granite Polisher Machine Relationship Specialty Start Date End Date Jonathan Zhang MD [address] [place] [address] [place] [address] PCP - General Family Medicine 03/09/22
--- OUTSIDE RECORDS SUMMARY | 2025-05-07 09:14 | XMS_ITS | Encounter Summary ---
Author Organization [facility] Address [address] [place] [address] Care Team Providers Care Steam Distribution Supervisor Name Role Phone Jonathan Zhang MD Primary Care Provider + Reason for Referral * Consultation (Routine) - Authorized Specialty Diagnoses / Procedures Referred By Contac t Referred To Contact Diagnoses Anemia, unspecified type Procedures [place] OFFICE/OUTPATIENT NEW MODERATE MDM 45 MINUTES Jonathan Zhang MD [address] [place] [address] Phone: tel: fax: Dwain Jurado MD [address] [place] [address] Phone: tel: fax: Referral ID Status Reason Start Date Expiration Date V isits Requested Visits Authorized [id number] Authorized 02/15/2025 05/17/2026 1 1 Scheduling Instructions Refer to Dr. Dwain Jurado at [facility] in [place] Encounter Details Date Type Department Care Team (Late st Contact Info) Description 02/15/2025 Results Follow-Up [facility] [address] [place] [phone] Jonathan Zhang MD [address] [place] [address] Social History Tobacco Use Types [...] 08/20/2025 10:15 AM EST Office Visit [facility] [address] [place] [address] Jonathan Zhang MD [address] [place] [address] documented as of this encounter Visit Diagnoses Diagnosis Anemia, unspecified type- Primary documented in this encounter Care Teams Steam Distribution Supervisor Relationship Specialty Start Date End Date Jonathan Zhang MD [address] [place] [address] PCP - General Family Medicine 03/09/22 documented as of this encounter
--- OUTSIDE RECORDS SUMMARY | 2025-05-07 09:14 | XMS_ITS | Clinical Summary ---
Author Organization [employer] ([place], [place], [place], [place]) Address [address] [place] [address] Care Team Providers Care Mba Internship Name Role Phone Jonathan Zhang MD Primary Care Provider Allergies No known active allergies Medications aspirin [...] type 06/22/2023 Coronary artery disease invo lving [place] coronary artery of [place] heart, unspecified whether angina present 06/22/2023 Mixed [...] Date Mitchel rded Speak language other than [place] at home Not on file 11/05/2023 Want [...] or Tdap) 01/21/2029 01/21/[address] [place] [id number] MEDICARE PART A B Care Teams Mba Internship Relationship Specialty Start Date End Date Jonathan Zhang MD PCP - General Family Medicine 06/22/23
--- OUTSIDE RECORDS SUMMARY | 2025-05-07 09:14 | XMS_ITS | Referral Summary ---
Author Organization [employer] ([place], [place], [place], [place]) Address [address] [place] [address] Care Team Providers Care Tube Builder Airplane Name Role Phone Jonathan Zhang MD Primary Care Provider [phone] Allergies No known active allergies Medications aspirin [...] type 06/22/2023 Coronary artery disease invo lving [place] coronary artery of [place] heart, unspecified whether angina present 06/22/2023 Mixed [...] Date Mitchel rded Speak language other than [place]ib[place] at home Not on file 11/05/2023 Want [...] on file Insurance MEDICARE PART A B [facility] Care Teams Tube Builder Airplane Relationship Specialty Start Date End Date Jonathan Zhang MD PCP - General Family Medicine 06/22/23
--- NOTE | 2025-05-07 09:18 | XR_ITS ---
FINAL REPORT CLINICAL HISTORY: pain FINDINGS: LEFT FOOT Three views of the left foot demonstrate no acute fracture or dislocation. The visualized joint spaces are normally aligned. The soft tissues are unremarkable. IMPRESSION: No acute bony abnormality. Reviewed, Interpreted and Dictated by Marcelino Urena MD Transcribed by Myesha Renteria Authenticated and [facility]
--- NOTE | 2025-05-07 09:18 | XR_ITS ---
FINAL REPORT CLINICAL HISTORY: pain FINDINGS: LEFT ANKLE Three views demonstrate no acute fracture or dislocation. The visualized joint spaces are normally aligned. The soft tissues are unremarkable. IMPRESSION: No acute bony abnormality. Reviewed, Interpreted and Dictated by Marcelino Urena MD Transcribed by Myesha Renteria Authenticated and [facility]
--- NOTE | 2025-05-07 09:18 | XR_ITS ---
FINAL REPORT CLINICAL HISTORY: Pain FINDINGS: LEFT TIBIA AND FIBULA There is no acute fracture or dislocation. The joint spaces are intact. There is no soft tissue abnormality. IMPRESSION: No acute fracture Reviewed, Interpreted and Dictated by Marcelino Urena MD Transcribed by Myesha Renteria Authenticated and [facility]
== END 2025-05-07 23:59 | disposition home or self-care (01) ==
LOC: RAD 09:08
PROVIDERS: PCP Family Medicine; Visit Provider Orthopaedic Surgery
DX: M25.572 Pain in left ankle and joints of left foot (principal); M79.672 Pain in left foot
CPT/HCPCS: 73590; 73610; 73630

== ENCOUNTER 2025-08-28 06:25 | Day surgery (SDC) | payer MEDICARE, BC, SELFPAY ==
[2025-08-22 14:47] VITALS: BMI 30.1
[2025-08-28 06:49] VITALS: BP 138/72; PULSE 72; RESP 18; TEMP 36.4; O2SAT 96
--- NOTE | 2025-08-28 07:00 | EXP.GEN.HP ---
HPI HPI HPI: This is a 75-year-old gentleman who presents for EGD/colonoscopy. He has a history of colon polyps noted in December 2021 and again in August 2023. His most recent colonoscopy August 2023 was complicated by moderate to poor bowel preparation and fairly severe spasticity/lack of relaxation. Sigmoid diverticulosis noted. A tubular adenoma of the right colon was excised. A separate right-sided tubular adenoma was excised 1 year prior. In addition, he has been undergoing a recent evaluation of anemia. Esophagogastroduodenoscopy in February of this year revealed no sign of obvious bleeding. A follow-up UGI/SBFT was normal. Follow-up capsule endoscopy completed in [facility] revealed no source of bleeding. Hemoglobin dated May 07, 2025 11.6 (stable) Currently, he is without symptoms. [facility] Disclaimer: The information contained in this section may have been updated after the patient was seen, as this information can be updated by other users. Medical History Left foot pain Hyperlipidemia Hypertension Surgical History History of esophagogastroduodenoscopy (EGD) Hx of heart artery stent History of right heart catheterization (RHC) Family History Other Family history of myocardial infarction Social History (Updated 08/28/25 @ 06:50 by Tiana Slaughter RN) Smoking Status: Never smoker alcohol intake: never substance use type: denies use current occupational status: retired Travel in the last 8 weeks?: None caffeine: No Have you lived/traveled outside [place] in past 30 days?: No Contact w/someone who lives/traveled outside US past 30 days?: No Exposure to someone with infectious disease in past 14 days?: No Do you have a fever (greater than 100.4 F or 38 C)?: No Have you tested positive for COVID-19?: No Exposed to someone with COVID-19 in past 14 days?: No Do you have a sore throat?: No Do you have a cough?: No Do you have any weakness?: No Are you experiencing any nausea/vomitting?: No Do you have any diarrhea?: No Are you experiencing any unusual bleeding?: No Do you have any muscle aches/pain?: No Do you have any abdominal pain?: No Are you experiencing loss of taste or smell?: No Other Medical History Have you received the Flu Vaccine for this season: Yes Have you received the Pneumonia Vaccine: Yes Review of Systems Review of Systems Review of systems:: pertinent systems reviewed and negative unless documented below Meds Home Medications and Allergies Home Medications ?Medication ?Instructions ?Recorded ?Confirmed ?Type aspirin 81 mg tablet,delayed 81 mg PO DAILY HEART HEALTH 01/21/19 08/28/25 History release atorvastatin 80 mg tablet 80 mg PO DAILY Cholesterol 01/21/19 08/28/25 History lisinopril 10 mg tablet 10 mg PO DAILY HTN 01/21/19 08/28/25 History torsemide 20 mg tablet 20 mg PO DAILY 02/23/25 08/28/25 History New Prescriptions to Start Prescriptions: Allergies Allergy/AdvReac Type Severity Reaction Status Date / Time No Known Allergies Allergy Verified 08/28/25 06:48 Exam Data for Last 24 hours Vital signs and Labs for Last 24 Hours: Temp Pulse Resp BP Pulse Ox O2 Del Method 97.5 F L 72 18 138/72 96 Room Air 08/28/25 06:49 08/28/25 06:49 08/28/25 06:49 08/28/25 06:49 08/28/25 06:49 08/28/25 06:49 Constitutional Constitutional: no acute distress *Routine HEENT Exam Head: Present normocephalic Eye: Present EOMI ENT: Present mucous membranes moist *Routine Neck Exam Neck: Present full ROM *Routine Respiratory Exam Respiratory: Absent respiratory distress *Routine Cardiovascular Exam Cardiovascular: Absent tachycardia *Routine Abdominal Exam Abdominal: Present soft *Routine Rectal Exam Rectal:: deferred *Routine Genitalia Exam Genitalia:: deferred *Routine Extremities Exam Extremities: Present full ROM *Routine Skin Exam Skin: Absent erythema *Routine Neurological Exam Neurological: Present alert Assessment and Plan *Assessment and plan (1) History of colon polyps: Status: Acute Category: Medical Code(s): Z86.0100 - Personal history of colon polyps, unspecified (2) Iron deficiency anemia: Status: Acute Qualifiers: Iron deficiency anemia type: unspecified iron deficiency Qualified Code(s): D50.9 - Iron deficiency anemia, unspecified Category: Medical Code(s): D50.9 - Iron deficiency anemia, unspecified Plan EGD/colonoscopy today I have discussed the risks and benefits including, but not limited to: Bleeding Infection Damage to surrounding tissue Inherent risks of sedation The patient agrees to proceed.
--- NOTE | 2025-08-28 07:04 | HMH.SCOPE ---
Procedure: Date: 08/28/25 Patient Date of :: 1950 Procedure Performed:: Esophagogastroduodenoscopy with biopsy Colonoscopy Indications:: History of colon polyps Anemia Note: He has a history of colon polyps noted in December 2021 and again in August 2023. His most recent colonoscopy in August 2023 was complicated by moderate to poor bowel preparation and fairly severe spasticity/lack of relaxation. Sigmoid diverticulosis noted. A tubular adenoma of the right colon was excised. A separate right-sided tubular adenoma was excised 1 year prior. In addition, he has been undergoing a recent evaluation of anemia. Esophagogastroduodenoscopy in February of this year revealed no sign of obvious bleeding. A follow-up UGI/SBFT was normal. Follow-up capsule endoscopy completed in [facility] revealed no source of bleeding. Performing Provider:: Marcos Inman MD Referring Provider:: . Sedation:: Monitored anesthesia care Procedure:: After informed consent was obtained the patient was taken to the endoscopy suite. Sedation ensued after the patient was transferred to the left lateral decubitus position. Pulse, blood pressure, and oxygen saturation were monitored throughout the procedure. The endoscope was advanced beyond the duodenal bulb. Retroflexion within the gastric lumen was accomplished. The gastroscope was carefully removed. Digital rectal exam revealed no significant abnormality. The colonoscope was placed in position. The entire colon was evaluated. The colonoscope was carefully removed and the patient was transferred to recovery in stable condition. Please see findings and specimens below for detail. Findings:: Gastroesophageal junction at 40 cm Sliding hiatal hernia Unchanged mild streaking gastritis No evidence of active hemorrhage No evidence of ulceration Bowel preparation moderate to poor (persistent) Persistent significant spasticity/lack of relaxation Unchanged sigmoid diverticulosis Specimens:: Antral biopsy Recommendations:: Continue proton pump inhibition Repeat colonoscopy in 3-5 years Complications:: No immediate Estimated blood obtained (mL): 1 Colonoscopy Component Colonoscopy Component Was a colonoscopy performed during today's procedure?: Yes Recommended follow up colonoscopy of at least 10 years?: No If no, follow up colonoscopy recommended in ___ years?: (See above) Reason for not recommending >/= 10 yr follow-up interval?: (See above)
[2025-08-28] MEDS: LACTATED RINGERS 1000ML 1,000 ML 50 ML IV (07:05)
[2025-08-28 08:03] VITALS: BP 88/53; PULSE 70; RESP 17; TEMP 36.1; O2SAT 93
[2025-08-28 08:13] VITALS: BP 89/53; PULSE 57; RESP 17; O2SAT 93
--- NOTE | 2025-08-28 08:16 | EXP.ANES.CKL ---
[facility] Disclaimer: The information contained in this section may have been updated after the patient was seen, as this information can be updated by other users. Medical History Left foot pain Hyperlipidemia Hypertension Surgical History History of esophagogastroduodenoscopy (EGD) Hx of heart artery stent History of right heart catheterization (RHC) Family History Other Family history of myocardial infarction Social History (Updated 08/28/25 @ 06:50 by Tiana Slaughter RN) Smoking Status: Never smoker alcohol intake: never substance use type: denies use current occupational status: retired Travel in the last 8 weeks?: None caffeine: No [facility] Anesthesia Checklist Patient Identification Patient Identification: Arm Band Structural Data Admitted From: Home Planned Operative Procedure/s: EGD/Colonoscopy Consent for Planned Operative Procedure(s) Verified: Yes Verified Documents: Surgical Consent and History and Physical NPO Status Verified Time NPO: 00:00 Additional verifications Anesthesia Reactions: No Airway Assessment Mallampati Score:: Class II C-Spine Mobility Assessed: Yes TMJ Mobility Assessed: Yes Dentition: Good Dentition Neurological Assessment Level of Consciousness: Awake, Alert and Appropriate Anesthesia Plan Anesthesia Risk discussed: Yes Anesthesia Plan: Verified ASA Class: III Anesthesia Type: MAC
[2025-08-28 08:23] VITALS: BP 90/54; PULSE 60; RESP 17; O2SAT 94
[2025-08-28 08:33] VITALS: BP 95/61; PULSE 61; RESP 18; O2SAT 95
[2025-08-28 08:43] VITALS: BP 102/61; PULSE 64; RESP 18; TEMP 36.1; O2SAT 95
== END 2025-08-28 08:56 | disposition home or self-care (01) ==
PROVIDERS: PCP Family Medicine; Visit Provider Surgery
PROC: 0DJ08ZZ Inspection of Upper Intestinal Tract, Via Natural or Artificial Opening Endoscopic (ICD-10-PCS; CPT 45378; principal; 2025-08-28 07:30)
DX: K44.9 Diaphragmatic hernia without obstruction or gangrene (principal); K31.89 Other diseases of stomach and duodenum; K29.70 Gastritis, unspecified, without bleeding; D50.9 Iron deficiency anemia, unspecified; I10 Essential (primary) hypertension; E78.5 Hyperlipidemia, unspecified; Z79.82 Long term (current) use of aspirin; Z86.0101 Personal history of adenomatous and serrated colon polyps
CPT/HCPCS: 43235; 45378; 88305; J2003; J2704; J7120

== ENCOUNTER 2025-10-02 18:34 | Outpatient (CLI) | payer MEDICARE, BC, SELFPAY ==
--- OUTSIDE RECORDS SUMMARY | 2025-08-20 10:15 | XMS_ITS | Encounter Summary ---
Author Organization [facility] Address [address] [place] [address] Care Team Providers Care Lgsw Name Role Phone Jonathan Zhang MD Primary Care Provider + Reason for Visit * Reason Comments Medicare Wellness-subsequent Encounter Details Date Type Department Care Team (Late st Contact Info) Description 08/20/2025 10:15 AM EST Office Visit [facility] [address] [place] [address] Jonathan Zhang MD [address] [place] [address] Need for immunization against influenza (Primary Dx); Medicare annual wellness visit, subsequent; Essential hypertension; Iron deficiency anemia, unspecified iron deficiency anemia type; Coronary artery disease involving [place] coronary artery of [place] heart without angina pectoris; Diastolic dysfunction Social History Tobacco Use Types Packs/Day Years [...] Date Recorded Patient Health Questionnaire-2 Score 0 08/20/2025 Sex and Gender Information Value Date Recorded Sex Assigned at Male 02/05/2025 8:48 AM EDT Legal Sex Male 9:53 AM EDT Gender Identity Not on file Sexual Orientation Straight 02/05/2025 8: 48 AM EDT documented as of this encounter Last Filed Vital Signs Vital Sign Reading Time Taken Comments Blood Pressure 100/60 08/20/2025 9:18 AM EST Pulse 56 08/20/2025 9:18 AM EST Temperature 36.2 C (97.1 F) 08/20/2025 9:18 AM EST Respiratory Rate 20 08/20/2025 9:18 AM EST Oxygen Saturation 96% 08/20/2025 9:18 AM EST Inhaled Oxygen Concentration - - Weight 96.4 kg (212 lb 9.6 oz) 08/20/2025 9:18 A M EST Height 180.3 cm (5' 10.98 ) 08/20/2025 9:[address] Body Mass Index 29.67 08/20/2025 9:18 AM EST documented in this encounter Functional Status documented as of this encounter Progress Notes * Jonathan Zhang MD - 08/20/2025 10:15 AM ESTAssociated Problem(s): Essential hypertension Hypertension is stable and controlled Continue current treatment regimen. Blood pressure will be reassessed in 6 months. Orders: Basic Metabolic Panel lisinopril (PRINIVIL,ZESTRIL) 5 MG tablet; Take 1 tablet by mouth Daily. * Jonathan Zhang MD - 08/20/2025 10:15 AM ESTAssociated Problem(s): Coronary artery disease involving [place] coronary artery of [place] heart with out angina pectoris Orders: Lipid Panel * Jonathan Zhang MD - 08/20/2025 10:15 AM ESTAssociated Problem(s): Diastolic dysfunction Orders: torsemide (DEMADEX) 20 MG tablet; Take 1 tablet by mouth Daily. * Jonathan Zhang MD - 08/20/2025 10:15 AM EST Subjective The ABCs of the Annual Wellness Visit Medicare Wellness Visit Manjit Landa is a 75 y.o. patient who presents for a Medicare Wellness Visit. The following portions of the patient's history were reviewed and updated as appropriate: allergies, current medications, past family history, past medical history, past social history, past surgical history, and problem list. Compared to one year ago, the patient's physical health is the same. Compared to one year ago, the patient's mental health is the same. Recent Hospitalizations: He was not admitted to the hospital during the last year. Current Medical Providers: Patient Care Team: Jonathan Zhang MD as PCP - General (Family Medicine) Tami Berman MD (Cardiology) Outpatient Medications Prior to Visit Medication Sig Dispense Refill aspirin 81 MG EC tablet Take 1 tablet by mouth Daily. atorvastatin (LIPITOR) 80 MG tablet Take 1 tablet by mouth every night at bedtime. lisinopril (PRINIVIL,ZESTRIL) 5 MG tablet Take 1 tablet by mouth Daily. 90 tablet 0 torsemide (DEMADEX) 20 MG tablet Take 1 tablet by mouth Daily. 90 tablet 1 No facility-administered medications prior to visit. No opioid medication identified on active medication list. I have reviewed chart for other potential high risk medication/s and harmful drug interactions in the elderly. Aspirin is on active medication list. Aspirin use is indicated based on review of current medical condition/s. Pros and cons of this therapy have been discussed today. Benefits of this medication outweigh potential harm. Patient has been encouraged to continue taking this medication. . Patient Active Problem List Diagnosis Class 1 obesity due to excess calories with serious comorbidity and body mass index (BMI) of 32.0 to 32.9 in adult Essential hypertension Coronary artery disease involving [place] coronary artery of [place] heart without angina pectoris Right sided sciatica Diastolic dysfunction Overactive bladder Advance Care Planning Advance Directive is not on file. ACP discussion was held with the patient during this visit. Patient has an advance directive (not in EMR), copy requested. Objective Vitals: 08/20/25 0918 BP: 100/60 Pulse: 56 Resp: 20 Temp: 97.1 ??F (36.2 ??C) SpO2: 96% Weight: 96.4 kg (212 lb 9.6 oz) Height: 180.3 cm (70.98 ) PainSc: 0-No pain Estimated body mass index is 29.67 kg/m?? as calculated from the following: Height as of this encounter: 180.3 cm (70.98 ). Weight as of this encounter: 96.4 kg (212 lb 9.6 oz). Does the patient have evidence of cognitive impairment? Yes Health Risk Assessment Smoking Status: Social History Tobacco Use Smoking Status Former Current packs/day: 0.00 Average packs/day: 0.5 packs/day for 15.0 years (7.5 ttl pk-yrs) Types: Cigarettes Quit date: 2009 Years since quittin.8 Smokeless Tobacco Never Alcohol Consumption: Social History Substance and Sexual Activity Alcohol Use Not Currently Fall Risk Screen STEADI Fall Risk Assessment was completed, and patient is at LOW risk for falls.Assessment completed on:08/20/2025 Depression Screening Little interest or pleasure in doing things? Not at all Feeling down, depressed, or hopeless? Not at all PHQ-2 Total Score 0 Health Habits and Functional and Cognitive Screenin08/20/2025 9:23 AM Functional & Cognitive Status Do you have difficulty preparing food and eating? No Do you have difficulty bathing yourself, getting dressed or grooming yourself? No Do you have difficulty using the toilet? No Do you have difficulty moving around from place to place? No Do you have trouble with steps or getting out of a bed or a chair? No Current Diet Limited Junk Food Dental Exam Up to date Eye Exam Not up to date Exercise (times per week) 0 times per week Current Exercises Include No Regular Exercise Do you need help using the phone? No Are you deaf or do you have serious difficulty hearing? No Do you need help to go to places out of walking distance? No Do you need help shopping? No Do you need help preparing meals? No Do you need help with housework? No Do you need help with laundry? No Do you need help taking your medications? No Do you need help managing money? No Do you ever drive or ride in a car without wearing a seat belt? No Have you felt unusual fatigue (could be tiredness), stress, anger or loneliness in the last month? No Who do you live with? Spouse If you need help, do you have trouble finding someone available to you? No Have you been bothered in the last four weeks by sexual problems? No Do you have difficulty concentrating, remembering or making decisions? No Age-appropriate Screening Schedule: Refer to the list below for future screening recommendations based on patient's age, sex and/or medical conditions. Orders for these recommended tests are listed in the plan section. The patient has been provided with a written plan. Health Maintenance List Health Maintenance Topic Date Due ZOSTER VACCINE (1 of 2) Never done Pneumococcal Vaccine 50+ (2 of 2 - PCV) 07/18/2021 COVID-19 Vaccine ( - 2024- season) 2025 (Originally 06/18/2025) ANNUAL WELLNESS VISIT 08/20/2026 TDAP/TD VACCINES (2 - Td or Tdap) 01/21/2029 COLORECTAL CANCER SCREENING 09/14/2033 RSV Vaccine - Adults Completed INFLUENZA VACCINE Completed AAA SCREEN ONCE Completed HEPATITIS C SCREENING Discontinued [facility] Preventative Services Quick Reference Risk Factors Identified During Encounter Hearing Problem: See Audiology. Wear Hearing Aids consistently to see if this improves memory Immunizations Discussed/Encouraged: Influenza Vision Screening Recommended Chronic Care every 6 months Cardiology F/U Yearly The above risks/problems have been discussed with the patient. Pertinent information has been shared with the patient in the After Visit Summary. An After Visit Summary and PPPS were made available to the patient. Follow Up: Next Medicare Wellness visit to be scheduled in 1 year. Assessment & Plan Medicare annual wellness visit, subsequent Need for immunization against influenza Orders: Fluzone High-Dose 65+yrs ([id number]) Essential hypertension Hypertension is stable and controlled Continue current treatment regimen. Blood pressure will be reassessed in 6 months. Orders: Basic Metabolic Panel lisinopril (PRINIVIL,ZESTRIL) 5 MG tablet; Take 1 tablet by mouth Daily. Iron deficiency anemia, unspecified iron deficiency anemia type Orders: Hemoglobin & Hematocrit, Blood Coronary artery disease involving [place] coronary artery of [place] heart without angina pectoris Orders: Lipid Panel Diastolic dysfunction Orders: torsemide (DEMADEX) 20 MG tablet; Take 1 tablet by mouth Daily. Follow Up: Return in about 6 months (around 02/17/2026) for Next scheduled follow up. documented in this encounter Plan of Treatment Upcoming Encounters Date Type Department Care Team (Late st Contact Info) Description 02/18/2026 8:30 AM EDT Office Visit [facility] [address] [address] Jonathan Zhang MD [address] [address] documented as of this encounter Procedures Procedure Name Priority Date/Time Associated Diagnosis Comments HEMOGLOBIN AND HEMATOCRIT, BLOOD Routine 08/20/2025 10:09 AM EST Iron deficiency anemia, unspecified iron deficiency anemia type LIPID PANEL Routine 08/20/2025 10:09 AM EST Coronary artery disease involving [place] coronary artery of [place] heart without angina pectoris BASIC METABOLIC PANEL Routine 08/20/2025 10:09 AM EST Essential hypertension documented in this encounter Results * (ABNORMAL) Hemoglobin & Hematocrit, Blood (08/20/2025 10:09 AM EST) Hemoglobin 11.7(L) 13.0 - 17.7 g/dL [facility] Hematocrit 36.3(L) 37.5 - 51.0 % [facility] Blood 08/20/2025 10:0 9 AM EST 08/20/2025 Narrative [facility] - 08/21/2025 3:07 AM EST Performed at: [address] [id number] Home Care Physical Therapist: Ha Recio MD, Phone: [phone] Patient Fasting: Y us Jonathan Zhang MD LAB BLOOD ORDERABLES Fin al Result [facility]) [address] [place] [address], [place] [phone] [facility] [address] [place] [address], [place] [phone] * Lipid Panel (08/20/2025 10:09 AM EST) [facility] Total Cholesterol 152 0 - 200 mg/dL [facility] Comment: Cholesterol Reference Ranges (U.S. Department of Health and Human Services ATP III Classifications) Desirable <200 mg/dL Borderline High 200-239 mg/dL High Risk >240 mg/dL Triglyceride Reference Ranges (U.S. Department of Health and Human Services ATP III Classifications) Normal <150 mg/dL Borderline High 150-199 mg/dL High 200-499 mg/dL Very High >500 mg/dL HDL Reference Ranges (U.S. Department of Health and Human Services ATP III Classifications) Low <40 mg/dl (major risk factor for CHD) High >60 mg/dl ('negative' risk factor for CHD) LDL Reference Ranges (U.S. Department of Health and Human Services ATP III Classifications) Optimal <100 mg/dL Near Optimal 100-129 mg/dL Borderline High 130-159 mg/dL High 160-189 mg/dL Very High >189 mg/dL LDL is calculated using the NIH LDL-C calculation. Triglycerides 91 0 - 150 mg/dL [facility] HDL Cholesterol 53 40 - 60 mg/dL [facility] VLDL Cholesterol Gordo 17 5 - 40 mg/dL [facility] LDL Chol Calc (NIH) 82 0 - 100 mg/dL [facility] Blood 08/20/2025 10:0 9 AM EST 08/20/2025 Narrative [facility] - 08/21/2025 3:07 AM EST Performed at: [address] [place] [id number] Home Care Physical Therapist: Ha Recio MD, Phone: [phone] Patient Fasting: Y us Jonathan Zhang MD LAB BLOOD ORDERABLES Fin al Result [facility] [address] [place] [address], [place] [phone] [facility] [address] [place] [address], [place] [phone] * (ABNORMAL) Basic Metabolic Panel (08/20/2025 10:09 AM EST) Glucose 85 65 - 99 mg/dL [facility] BUN 16.0 8.0 - 23.0 mg/dL [facility] Creatinine 1.25 0.76 - 1.27 mg/dL [facility] EGFR Result 60.0(L) >60.0 mL/min/1.7 3 [facility] Comment: GFR Categories in Chronic Kidney Disease (CKD) GFR Category GFR (mL/min/1.73) Interpretation G1 90 or greater Normal or high (1) G2 60-89 Mild decrease (1) G3a 45-59 Mild to moderate decrease G3b 30-44 Moderate to severe decrease G4 15-29 Severe decrease G5 14 or less Kidney failure (1)In the absence of evidence of kidney disease, neither GFR category G1 or G2 fulfill the criteria for CKD. eGFR calculation 2020 CKD-EPI creatinine equation, which does not include race as a factor BUN/Creatinine Ratio 12.8 7.0 - 25.0 [facility] Sodium 138 136 - 145 mmol/L [facility] Potassium 4.3 3.5 - 5.2 mmol/L [facility] Chloride 98 98 - 107 mmol/L [facility] Total CO2 27.1 22.0 - 29.0 mmol/L [facility] Calcium 9.6 8.6 - 10.5 mg/dL [facility] Blood 08/20/2025 10:0 9 AM EST 08/20/2025 Narrative [facility] - 08/21/2025 3:07 AM EST Performed at: [address] [id number] Home Care Physical Therapist: Ha Recio MD, Phone: [phone] Patient Fasting: Y us Jonathan Zhang MD LAB BLOOD ORDERABLES Fin al Result [facility]) [address] [place] [address], [place] [phone] [facility] [address] [place] [address], [place] [phone] documented in this encounter Visit Diagnoses Diagnosis Need for immunization against influenza- Primary Need for prophylactic vaccination and inoculation against influenza Medicare annual wellness visit, subsequent Essential hypertension Unspecified essential hypertension Iron deficiency anemia, unspecified iron deficiency anemia type Coronary artery disease involving [place] coronary artery of [place] heart without angina pectoris Diastolic dysfunction Unspecified heart disease documented in this encounter Care Teams Lgsw Relationship Specialty Start Date End Date Jonathan Zhang MD [address] [place] [address] PCP - General Family Medicine 03/09/22 documented as of this encounter
--- OUTSIDE RECORDS SUMMARY | 2025-09-10 09:15 | XMS_ITS | Encounter Summary ---
Author Organization [employer] ([place], [place], [place], [place], [place]) Address [address] [place] [address] Care Team Providers Care Technical Cable Jointer Name Role Phone Jonathan Zhang MD Primary Care Provider [phone] Reason for Visit * Reason Comments Follow-up Annual follow up. No complaints. Encounter Details Date Type Department Care Team (Latest Contact Info) Description 09/10/2025 9:15 AM EST Office Visit [facility] Cardiology [address] [place] [address] Diego Gallardo III, CLIP RIVETER [address] [address] Coronary artery disease involving [place]e coronary artery of [place] heart, unspecified whether angina present (Primary Dx); Primary hypertension; Mixed hyperlipidemia Social History Tobacco Use Types Packs/Day Years Used Date Smoking Tobacco: Former Cigarettes Alcohol Use Standard Drinks/Week Comments Not Currently 0 (1 standard drink = 0.6 oz pur e alcohol) Family and Community Support Answer Yefri e Recorded Help with Day to Day Activities Not on file 11/05/2023 Feeling Lonely or Isolated Not on file 11/05 Educational Attainment Answer Date Mitchel rded Speak language other than Nicaraguan at home Not on file 11/05/2023 Want [...] on file Sexual Orientation Not on file documented as of this encounter Last Filed Vital Signs Vital Sign Reading Time Taken Comments Blood Pressure 110/62 09/10/2025 9:15 AM EST Pulse 57 09/10/2025 9:15 AM EST Temperature - - Respiratory Rate - - Oxygen Saturation 96% 09/10/2025 9:15 AM EST Inhaled Oxygen Concentration - - Weight 97.6 kg (215 lb 3.2 oz) 09/10/2025 9:15 A M EST Height 180.3 cm (5' 11 ) 09/10/2025 9:15 AM EST Body Mass Index 30.01 09/10/2025 9:15 AM EST documented in this encounter Patient Instructions * Patient Instructions* Diego Gallardo III, APRN - 09/10/2025 9:15 AM EST Stop lisinopril Monitor blood pressure with goal less than 140 on top ING SUIT MAKER documented in this encounter Progress Notes * Diego Gallardo III, APRN - 09/10/2025 9:15 AM EST Basic Information: Name: Manjit Landa, :1950 PCP: Jonathan Zhang MD Referring MD: Jonathan Zhang MD Reason for Visit: Chief Complaint Patient presents with Follow-up Annual follow up. No complaints. HPI: Mr. Landa is a 75 y.o. male with a pertinent past medical history of coronary artery disease with right coronary stenting in 2013, hypertension, and dyslipidemia presents to the office today for follow-up. Overall, doing well. He has had no recurrent anginal symptoms. He reports no orthopnea or PND and no dizziness or syncope. He did have some periods of weakness with blood pressure noted in the90s systolic. His lisinopril was cut in half. He does feel better. He continues to have some fatigue though is better overall. Review of Systems: Complete 14 point ROS Normal or Non-contributory except complaints described in HPI or other sections of this note. History Patient has no past medical history on file. Patient has a past surgical history that includes Coronary angioplasty with stent (2013). Patient reports that he has quit smoking. His smoking use included cigarettes. He does not have anysmokeless tobacco history on file. Allergies Patient has no known allergies. Home Medications Current Outpatient Medications: aspirin 81 MG EC tablet, Take 1 tablet (81 mg total) by mouth daily., Disp: , Rfl: atorvastatin (LIPITOR) 80 MG tablet, Take 1 tablet (80 mg total) by mouth daily., Disp: 30 tablet, Rfl: 11 torsemide (DEMADEX) 20 MG tablet, Take 1 tablet (20 mg total) by mouth daily., Disp: , Rfl: lisinopriL (ZESTRIL) 5 MG tablet, Take 1 tablet (5 mg total) by mouth daily., Disp: , Rfl: Objective: BP 110/62 (BP Location: Left arm, Patient Position: Sitting, Cuff Size: Adult) Pulse 57 Ht 1.803 m (5' 11 ) Wt 97.6 kg (215 lb 3.2 oz) SpO2 96% BMI 30.01 kg/m?? Physical Exam GENERAL: Well developed, well nourished and in no acute distress HEENT: Inspection of the conjunctivae and lids is within normal limits. Oral mucosa is moist without pallor. CARDIOVASCULAR: Regular rate and rhythm. Normal S1 & S2. No murmurs appreciated. RESPIRATORY: Clear to auscultation. Equal expansion bilaterally and symmetrically. MUSCULOSKELETAL: No clubbing or cyanosis. No edema SKIN: Warm to touch. No dermatitis or ulceration. NEURO: Moves all extremities, strength intact. No focal neurological deficit noted PSYCHIATRIC: Alert and oriented x3 with normal affect VASCULAR: Carotid upstrokes are normal without bruits. Radial and pedal pulses are palpable bilaterally Results Review: Prev Cardiac and Vascular Hx/Eval CAD status post RCA stenting 2013 non-STEMI Hypertension Hyperlipidemia Previous cardiac evaluation Echo 2021 unremarkable Nuclear Stress test 07/12/23 Impression: Preserved left ventricular systolic function with uniform thickening of all myocardial segments No fixed or reversible perfusion defects noted Overall low risk perfusion study Previous vascular evaluation Arterial Duplex 07/12/23 RIGHT: Mild atherosclerotic plaque noted with multiphasic waveforms throughout. SHASHI 1.19 within the normal range. LEFT: Mild atherosclerotic plaque noted with multiphasic waveforms throughout. SHASHI 1.11 within the normal range. Problem List: Patient Active Problem List Diagnosis Leg pain, bilateral Edema, unspecified type Coronary artery disease involving [place] coronary artery of sh[place] heart, unspecified whether angina present Mixed hyperlipidemia Primary hypertension Health care maintenance JOHN (dyspnea on exertion) Claudication (HCC) Assessment: Coronary artery disease, RCA stent 2013 Hypertension Dyslipidemia Plan: 75-year-old male presenting today for follow-up. Overall, doing well. History of RCA stenting in 2013. No recurrent anginal symptoms. No evidence of decompensated CHF or malignant dysrhythmia. History of hypertension with recent decrease in lisinopril dosing due to lower blood pressures. Blood pressure log at home has consistently been in the 100-115 systolic range. I think at this point, he can stop his lisinopril entirely. We will continue his regimen otherwise. He knows to monitor his blood pressure at home. History of dyslipidemia continue current statin therapy. Thorough review of all available medical records was done prior to examination today. Follow up: [address] Pineda or sooner if clinically indicated Requested Prescriptions No prescriptions requested or ordered in this encounter No orders of the defined types were placed in this encounter. ING SUIT MAKER documented in this encounter Plan of Treatment Not on file documented as of this encounter Visit Diagnoses Diagnosis Coronary artery disease involving sh[place] coronary artery of sh[place] heart, unspecified whether angina present- Primary Primary hypertension Unspecified essential hypertension Mixed hyperlipidemia documented in this encounter Care Teams Technical Cable Jointer Relationship Specialty Start Date End Date Jonathan Zhang MD PCP - General Family Medicine 06/22/23 documented as of this encounter
[2025-10-02 20:55] LABS: Coronavirus 19, PCR Not Detected (NotDetected); Influenza A, PCR Not Detected (NotDetected); Influenza B, PCR Not Detected (NotDetected)
--- OUTSIDE RECORDS SUMMARY | 2025-10-03 18:47 | XMS_ITS | Clinical Summary ---
Author Organization [employer] ([place], [place], [place], [place], [place]) Address [address] [place] [address] Care Team Providers Care Can Reforming Machine Operator Name Role Phone Jonathan Zhang MD Primary Care Provider [phone] Allergies No known active allergies Medications aspirin 81 MG EC tablet Take 1 tablet (81 mg total) by mouth daily. Active torsemide (DEMADEX) 20 MG tablet Take 1 tablet (20 mg total) by mouth daily. 4 Active atorvastatin (LIPITOR) 80 MG tablet Take 1 tablet (80 mg total) by mouth daily. 30 tablet 11 5 Active lisinopriL (ZESTRIL) 5 MG tablet Take 1 tablet (5 mg total) by mouth daily. Active atorvastatin (LIPITOR) 80 MG tablet Take 1 tablet (80 mg total) by mouth daily. 30 tablet 11 4 025 Discontinued(Re order) lisinopriL (ZESTRIL) 10 MG tablet Take 1 tablet (10 mg total) by mouth daily. 30 tablet 11 4 025 Discontinued Active Problems Problem Noted Date Diagnosed Date Claudication 06/23/2023 Leg pain, bilateral 06/22/2023 Edema, unspecified type 06/22/2023 Coronary artery disease invo lving pala coronary artery of pala heart, unspecified whether angina present 06/22/2023 Mixed hyperlipidemia 06/22/2023 Primary hypertension 06/22/2023 Health care maintenance 06/22/2023 JOHN (dyspnea on exertion) 06/22/2023 Encounters Date Type Department Care Team Description 09/10/2025 9:15 AM EST Office Visit [facility] Cardiology [address] [place] [address] Corby Gallardotimothy Alvarez III, HIDE GRADER Coronary artery disease involving pala coronary artery of pala heart, unspecified whether angina present (Primary Dx); Primary hypertension; Mixed hyperlipidemia 09/10/2025 Travel from Last 3 Months Family History Relation Name Status Comments Father [...] Date Mitchel rded Speak language other than Vietnamese at home Not on file 11/05/2023 Want [...] Mass Index 30.01 09/10/2025 9:15 AM EST Plan of Treatment Health Maintenance Due Date Last Done Comments CT Colonography 1950 Colonoscopy 1950 Colorectal Cancer Screening 1950 FOBT/FIT 1950 Fit-DNA (Cologuard) 1950 Sigmoidoscopy 1950 Depression Screening (12+) 1962 Hepatitis C Screening 01/28/1968 Shingles Vaccine (Zoster) (1 of 2) 01/28/2000 Abdominal Aortic Aneurysm (A AA) Screen 2015 Medicare Initial AWV [id number] 01/18/2016 Pneumococcal 50+ years (2 of 2 - PCV) 07/18/2021 07/18/2020, 08/10/2016 Falls Risk Screening 10/18/2024 Respiratory Syncytial Virus (RSV) Adult or (1 - 1-dose 75+ series) 2025 COVID-19 VACCINE (4 - 2024-2 6 season) 2025 03/27/2022, 09/06/2021, 01/18/2021 Tobacco Cessation Counseling and Screening (12+) 09/10/2026 09/10/2025 DTAP/TDAP/TD VACCINES (2 - T d or Tdap) 01/21/2029 01/21/2019 Influenza Vaccine Completed 08/20/2025, , 07/20/2023, Additional history exists Insurance MEDICARE PART A B SUPPL Care Teams Can Reforming Machine Operator Relationship Specialty Start Date End Date Jonathan Zhang MD PCP - General Family Medicine 06/22/23
--- OUTSIDE RECORDS SUMMARY | 2025-10-03 18:47 | XMS_ITS | Referral Summary ---
Author Organization [employer] ([place], [place], [place], [place], [place]) Address [address] [place] [address] Care Team Providers Care Interior Painter Name Role Phone Jonathan Zhang MD Primary Care Provider [phone] Encounters Date Type Department Care Team Description 09/10/2025 Travel 09/10/2025 9:15 AM EST Office Visit [facility] Cardiology [address] [place] [address] Diego Gallardo III, FLOOR SANDER Coronary artery disease involving bois forte coronary artery of bois [place]te heart, unspecified whether angina present (Primary Dx); Primary hypertension; Mixed hyperlipidemia from Last 3 Months Allergies No known active allergies Medications aspirin [...] total) by mouth daily. 30 tablet 11 10/31 025 Discontinued Active Problems Problem Noted Date Diagnosed Date Claudication 06/23/2023 Leg pain, bilateral 06/22/2023 Edema, unspecified type 06/22/2023 Coronary artery disease invo lving bois forte coronary artery of bois forte heart, unspecified whether angina present 06/22/2023 Mixed [...] Date Mitchel rded Speak language other than Nauruan at home Not on file 11/05/2023 Want [...] 09/10/2025 9:15 AM EST Plan of Treatment Not on file Insurance [id number] [id number] MEDICARE PART A B SUPPL Care Teams Interior Painter Relationship Specialty Start Date End Date Jonathan Zhang MD PCP - General Family Medicine 06/22/23
--- OUTSIDE RECORDS SUMMARY | 2025-10-03 18:47 | XMS_ITS | Encounter Summary ---
Author Organization [facility] Address [address] [place] [address] Care Team Providers Care Cloth Grader Supervisor Name Role Phone Jonathan Zhang MD Primary Care Provider + Reason for Referral * Consultation (Routine) - Authorized Specialty Diagnoses / Procedures Referred By Contac t Referred To Contact Diagnoses Anemia, unspecified type Procedures [place] OFFICE/OUTPATIENT NEW MODERATE MDM 45 MINUTES Jonathan Zhang MD [address] [place] [address] Phone: tel: fax: Dwain Jurado MD [address] [place] [address] Phone: tel: fax: Referral ID Status Reason Start Date Expiration Date V isits Requested Visits Authorized [id number] Authorized 02/15/2025 05/17/2026 1 1 Scheduling Instructions Refer to Dr. Dwain Jurado at [facility] in [place] Encounter Details Date Type Department Care Team (Late st Contact Info) Description 02/15/2025 Results Follow-Up [facility] [address] [place] [id number] Jonathan Zhang MD [address] [place] [address] Social History Tobacco Use Types [...] Description 02/18/2026 8:30 AM EDT Office Visit [facility] [address] [facility] [place] [address] Jonathan Zhang MD [address] [place] [address] documented as of this encounter Visit Diagnoses Diagnosis Anemia, unspecified type- Primary documented in this encounter Care Teams Cloth Grader Supervisor Relationship Specialty Start Date End Date Jonathan Zhang MD [address] [place] [address] PCP - General Family Medicine 03/09/22 documented as of this encounter
--- OUTSIDE RECORDS SUMMARY | 2025-10-03 18:47 | XMS_ITS | Encounter Summary ---
Author Organization [facility] Address [address] [place] [address] Care Team Providers Care Director Medical Economics Name Role Phone Jonathan Zhang MD Primary Care Provider + Encounter Details Date Type Department Care Team (Late st Contact Info) Description 08/21/2025 Results Follow-Up [facility] [address] [place] [address] Jonathan Zhang MD [address] [facility] [place] [address] Social History Tobacco Use Types Packs/Day Years Used Date Smoking Tobacco: Former Cigarettes 0.5 15 Q uit: 2009 Smokeless Tobacco: Never Alcohol Use Standard Drinks/Week Comments Not Currently [...] Description 02/18/2026 8:30 AM EDT Office Visit [facility] [address] [place] [address] Jonathan Zhang MD [address] [place] [place] [address] documented as of this encounter Visit Diagnoses Not on filedocumented in this encounter Care Teams Director Medical Economics Relationship Specialty Start Date End Date Jonathan Zhang MD [address] [place] [address] PCP - General Family Medicine 03/09/22 documented as of this encounter
--- OUTSIDE RECORDS SUMMARY | 2025-10-03 18:47 | XMS_ITS | Encounter Summary ---
Author Organization [facility] Address [address] [place] [address] Care Team Providers Care Magnetic Resonance Imaging Coordinator Name Role Phone Jonathan Zhang MD Primary Care Provider + Encounter Details Date Type Department Care Team (Latest Contact Info) Description 08/20/2025 Travel Social History Tobacco Use Types Packs/Day Years [...] AM EDT documented as of this encounter Functional Status documented as of this encounter Plan of Treatment Upcoming Encounters Date Type Department Care Team (Late st Contact Info) Description 02/18/2026 8:30 AM EDT Office Visit [facility] [address] [place] [address] Jonathan Zhang MD [address] [place] [address] documented as of this encounter Visit Diagnoses Not on filedocumented in this encounter Care Teams Magnetic Resonance Imaging Coordinator Relationship Specialty Start Date End Date Jonathan Zhang MD [address] [place] [address] PCP - General Family Medicine 03/09/22 documented as of this encounter
--- OUTSIDE RECORDS SUMMARY | 2025-10-03 18:48 | XMS_ITS | Clinical Summary ---
Author Organization [facility] Address [address] [place] [address] Care Team Providers Care Psych Tech Name Role Phone Jonathan Zhang MD Primary Care Provider + Allergies No known active allergies Medications atorvastatin (LIPITOR) 80 MG tablet Take 1 tablet by mouth every night at bedtime. 01/17/2022 Active aspirin 81 MG EC tablet Take 1 tablet by mouth Daily. Active lisinopril (PRINIVIL,ZESTRIL ) 5 MG tabletIndications :Essential hypertension Take 1 tablet by mouth Daily. 90 tablet 1 08/20/2025 Active torsemide (DEMADEX) 20 MG tabletIndications :Diastolic dysfunction Take 1 tablet by mouth Daily. 90 tablet 1 08/20/2025 Active Active Problems Problem Noted Date Diagnosed Date Overactive bladder 07/20/2023 Diastolic dysfunction 11/10/2022 Assessment & Plan (08/20/2025 10:13 AM EST): Orders: torsemide (DEMADEX) 20 MG tablet; Take 1 tablet by mouth Daily. Assessment & Plan (01/24/2024 11:28 AM EDT): [...] exercise. Essential hypertension 03/09/2022 Assessment & Plan (08/20/2025 10:13 AM EST): Hypertension is stable and controlled Continue current treatment regimen. Blood pressure will be reassessed in 6 months. Orders: Basic Metabolic Panel lisinopril (PRINIVIL,ZESTRIL) 5 MG tablet; Take 1 tablet by mouth Daily. Assessment & Plan (05/28/2025 2:02 PM EDT): Patient has a chronic condition and is experiencing adverse effects of treatment with blood pressure is now bordering on being too low. Lisinopril will be reduced to 5 mg daily. will continue twice daily monitoring. He sees his usual case operator in August. He will return sooner on an as-needed basis Assessment & Plan (01/24/2024 11:28 AM EDT): [...] regular appointment. Coronary artery disease invo lving nenana coronary artery of nenana heart without angina pectoris 03/09/2022 Assessment & Plan (08/20/2025 10:13 AM EST): Orders: Lipid Panel Assessment & Plan (05/28/2025 2:03 PM EDT): Part of the change in antihypertensive is also intended to avoid lowering diastolic blood pressures significantly considering the diagnosis of coronary artery disease Assessment & Plan (01/24/2024 11:28 AM EDT): [...] Encounters Date Type Department Care Team Description 08/21/2025 Results Follow-Up [facility] [address] [place] [address] Jonathan Zhang MD 08/20/2025 10:15 AM EST Office Visit [facility] [address] [place] [address] Jonathan Zhang MD Need for immunization against influenza (Primary Dx); Medicare annual wellness visit, subsequent; Essential hypertension; Iron deficiency anemia, unspecified iron deficiency anemia type; Coronary artery disease involving nenana coronary artery of nenana heart without angina pectoris; Diastolic dysfunction 08/20/2025 Travel from Last 3 Months Immunizations Immunization Administration Dates Next Due Arexvy (RSV, Adults 60+ yrs) 08/11/2023 COVID-19 (SULY) 09/06/2021,01/18/2021 COVID-19 (MODERNA) Monovalent Original Booster 0 03/27/2022 FLUAD TRI 65YR+ 07/21/2024,08/09/2020 Fluad Quad 65+ 07/20/2022,07/09/2021 Fluzone High-Dose 65+YRS 08/20/2025 Fluzone High-Dose 65+yrs 07/20/2023 Influenza, Unspecified 07/18/2020 Pneumococcal Polysaccharide (PPSV23) 07/18/2020 Tdap 01/21/2019 Family History Medical History Relation Name Comments Heart attack Father Je Heart disease Father Je No Known Problems Mother Relation Name Status Comments Father Je Mother Social History Tobacco Use Types Packs/Day Years Used Date Smoking Tobacco: Former Cigarettes 0.5 15 Q uit: 2010 Smokeless Tobacco: Never Tobacco Cessation:Counseling Given: Not [...] Mass Index 29.67 08/20/2025 9:18 AM EST Plan of Treatment Upcoming Encounters Date Type Department Care Team (Late st Contact Info) Description 02/18/2026 8:30 AM EDT Office Visit [facility] [address] [address] Jonathan Zhang MD [address] [place] [address] Health Maintenance Due Date Last Done Comments COLOGUARD 1995 COLON CANCER SCREENING 5 YEA [address] SIGMOID[address]COPY [address] COLONOGRAPHY 1995 FECAL OCCULT BLOOD TEST 1995 FIT Testing (1 year) 1995 ZOSTER VACCINE (1 of 2) 01/28/2000 Pneumococcal Vaccine 50+ (2 of 2 - PCV) 07/18/2021 07/18/2020 COVID-19 Vaccine (4 - 2024-2 6 season) 2025 03/27/2022, 09/06/2021, 01/18/2021 ANNUAL WELLNESS VISIT 08/20/2026 08/20/2025 , 08/20/2025, 08/14/2024, Additional history exists TDAP/TD VACCINES (2 - Td or Tdap) 01/21/2029 019 COLONOSCOPY 09/14/2033 09/14/2023, 01/06/2022 COLORECTAL CANCER SCREENING 09/14/2033 RSV Vaccine - Adults Completed 08/11/2023 AAA SCREEN ONCE Completed 10/21/2023, 08/10/2017 INFLUENZA VACCINE Completed 08/20/2025, , 07/21/2024, Additional history exists HEPATITIS C SCREENING Discontinued Procedures Procedure Name Priority Date/Time Associated Diagnosis Comments HEMOGLOBIN AND HEMATOCRIT, BLOOD Routine 08/20/2025 10:09 AM EST Iron deficiency anemia, unspecified iron deficiency anemia type LIPID PANEL Routine 08/20/2025 10:09 AM EST Coronary artery disease involving nenana coronary artery of nenana heart without angina pectoris BASIC METABOLIC PANEL Routine 08/20/2025 10:09 AM EST Essential hypertension from Last 3 Months Results * (ABNORMAL) Hemoglobin & Hematocrit, Blood (08/20/2025 10:09 AM EST) Hemoglobin 11.7(L) 13.0 - 17.7 g/dL [facility] Hematocrit 36.3(L) 37.5 - 51.0 % [facility] Blood 08/20/2025 10:0 9 AM EST 08/20/2025 [facility] ([facility]) - 08/21/2025 3:07 AM EST Performed at: [address] [place] [address] [address] [place], [place] [id number] Area Director Of Home Health Sales: Ha Recio MD, Phone: [phone] Patient Fasting: Y Jonathan Zhang MD LAB BLOOD ORDERABLES Fin al Result [facility] (AMBULATORY) [address] [place] [address], [facility] [address] [place] [address], * Lipid Panel (08/20/2025 10:09 AM EST) [facility] Total Cholesterol 152 0 - 200 mg/dL [...] - 08/21/2025 3:07 AM EST Performed at: [address] [place] [address] [address] [place], [place] [id number] Area Director Of Home Health Sales: Ha Recio MD, Phone: [phone] Patient Fasting: Y us Jonathan Zhang MD LAB BLOOD ORDERABLES Fin al Result [facility] ([facility]) [address] [place] [address], [place] [phone] [facility] [address] [place] [address], * (ABNORMAL) Basic Metabolic Panel (08/20/2025 10:09 AM EST) [facility] Glucose 85 65 - 99 mg/dL [facility] [...] 08/21/2025 3:07 AM EST Performed at: [address] [place] [id number] Area Director Of Home Health Sales: Ha Recio MD, Phone: [phone] Patient Fasting: Y Jonathan Zhang MD LAB BLOOD ORDERABLES Fin al Result [facility] ([facility]) [address] [place] [address], [place] [phone] [facility] [address] [place] [address], [place] [phone] from Last [address] [place] [id number] MEDICARE A & B Member Subscriber Plan / Payer (Ef fective 2015-Present) Name:Addie Landa Member ID:[id number] Relation to Subscriber:Self Name:Addie Landa Subscriber ID:[id number] Payer ID:[id number] Group ID:Not on file Type:Not on file Address: [facility] [id number] Care Teams Psych Tech Relationship Specialty Start Date End Date Jonathan [place] [address] PCP - General Family Medicine 03/09/22
--- OUTSIDE RECORDS SUMMARY | 2025-10-03 18:48 | XMS_ITS | Encounter Summary ---
Author Organization [facility] [facility] ([place], [place], [place], [place], [place]) Address [address] [place] [address] Care Team Providers Care Supervisor Claims Name Role Phone Jonathan Zhang MD Primary Care Provider [phone] Encounter Details Date Type Department Care Team (Latest Contact Info) Description 09/10/2025 Travel Social History Tobacco Use Types Packs/Day [...] Date Mitchel rded Speak language other than Chinese at home Not on file 11/05/2023 Want [...] on file documented as of this encounter Plan of Treatment Not on file documented as of this encounter Visit Diagnoses Not on filedocumented in this encounter Care Teams Supervisor Claims Relationship Specialty Start Date End Date Jonathan Zhang MD PCP - General Family Medicine 06/22/23 documented as of this encounter
== END 2025-10-02 23:59 | disposition home or self-care (01) ==
LOC: LAB.DROPOF 10-03 18:46
PROVIDERS: PCP Family Medicine; Visit Provider Nurse Practitioner
DX: J06.9 Acute upper respiratory infection, unspecified (principal); J02.9 Acute pharyngitis, unspecified
CPT/HCPCS: 87631